=== PATIENT | female | born 1980 | race Hispanic/Latino ===

== ENCOUNTER 2019-06-11 18:36 | Emergency (ER) | payer OTHER, SELFPAY ==
[2019-06-11 18:46] VITALS: BP 108/71; PULSE 73; RESP 16; TEMP 36.4; O2SAT 100
--- NOTE | 2019-06-11 19:25 | ED.SKABFB ---
HPI - Skin/Abscess/Foreign Bdy General Chief complaint: Skin/Abscess/Foreign Body Stated complaint: Redness on Cheeks Time Seen by Provider: 06/11/19 19:05 Source: patient, family and RN notes reviewed Mode of arrival: ambulatory Limitations: no limitations and other (patient speaks tristanian but family here to translate) History of Present Illness HPI narrative: 39 year old female accompanied by friend presents to express care with complaints of rash to bilateral cheek after she put her head into the oven to remove a cake on Friday. Patient has blotchy looking skin to bilateral lateral cheeks, denies any pain states some itch to skin, no blister formation or acute redness noted. Patient denies any fevers chills or sweats, denies any fluid or weeping from skin on cheeks, has applied some neosporin ointment to skin. MD complaint: other (superficial burn to cheeks) Onset (ago): day(s) (on Friday) Tetanus up to date: unsure Location: face Severity: mild Severity scale (1-10): 1 (no acute pain states itchy) Quality: other (itchy) Pain Consistency: other (itchy) Relieving factors: none Exacerbating factors: none Context: none Associated symptoms: denies other symptoms Treatments prior to arrival: other (neosporin) Related Data Home Medications Medication Instructions Recorded Confirmed ergocalciferol (vitamin D2) 06/11/19 Allergies Allergy/AdvReac Type Severity Reaction Status Date / Time No Known Allergies Allergy Unverified 08/15/18 10:58 Review of Systems Review of Systems: Narrative: CONSTITUTIONAL: Denies fever, chills, or sweats. EYES: Denies visual changes, redness, or discharge. ENT: Denies rhinorrhea, congestion, sore throat, or otalgia. CARDIOVASCULAR: Denies chest pain, palpitations, or edema. RESPIRATORY: Denies cough or dyspnea. GASTROINTESTINAL: Denies abdominal pain, nausea, vomiting, or diarrhea. GENITOURINARY: Denies dysuria or hematuria. SKIN:blotchy colored rash to bilateral cheeks with itching MUSCULOSKELETAL: Denies back pain, joint pain, or myalgia. NEUROLOGIC: Denies headache, numbness, or weakness. PSYCHIATRIC: Denies anxiety or depression. All systems reviewed & are unremarkable except as noted in HPI and below PMFSH Surgical History Surgical History (Updated 06/11/19 @ 19:48 by Deborah De La Garza NP) Previous section Social History Social History (Updated 06/11/19 @ 19:48 by Deborah De La Garza NP) Smoking status: Never smoker Alcohol intake: never Living arrangements: with family Gender identity (if verbalized by the patient): Female Comments At time of signature, agree with nursing past medical, social history. There is no relevant family history pertinent to the presenting complaint Exam Narrative: Exam Narrative: GENERAL: Well-appearing, well-nourished, and in no acute distress. HEAD: Normocephalic, atraumatic. EYES: PERRLA and EOMI. ENT: Nares clear, no rhinorrhea or epistaxis. Mucous membranes moist. NECK: Supple. no lymphadenopathy CHEST: Clear to auscultation. No respiratory distress. HEART: Regular rate and rhythm. No murmur heard. Normal peripheral pulses. ABDOMEN: Soft, nontender, nondistended, normal active bowel sounds. EXTREMITIES: Normal range of motion. No edema. SKIN: Warm, dry, blotchy skin to bilateral lateral cheeks, no blisters, weeping, or acute pain to area, states itchy NEURO: No focal deficits. Alert and oriented x3. Course Vital Signs Vital signs: Vital Signs Temperature 36.4 C L 06/11/19 18:46 Pulse Rate 73 06/11/19 18:46 Respiratory Rate 16 06/11/19 18:46 Blood Pressure 108/71 06/11/19 18:46 Pulse Oximetry 100 06/11/19 18:46 Temperature 36.4 C L 06/11/19 18:46 Pulse Rate 73 06/11/19 18:46 Respiratory Rate 16 06/11/19 18:46 Blood Pressure 108/71 06/11/19 18:46 Pulse Oximetry 100 06/11/19 18:46 MDM - Skin/Abscess/Foreign Bdy Differential Diagnosis Differential diagnosis: Likely viral exa
== END 2019-06-11 19:40 | disposition home or self-care (01) ==
PROVIDERS: Emergency Provider Registered Nurse; PCP Family Medicine
DX: T20.16XA Burn of first degree of forehead and cheek, initial encounter (principal); X19.XXXA Contact with other heat and hot substances, initial encounter
CPT/HCPCS: 99213; G0463

== ENCOUNTER 2019-08-12 15:10 | Emergency (ER) | payer OTHER, SELFPAY ==
--- NOTE | 2019-08-12 15:19 | ED_ITS ---
HPI - General Adult General Stated complaint: Lft side numbness face/arm/ palpitation Time Seen by Provider: 08/12/19 15:19 Source: patient and RN notes reviewed History of Present Illness HPI narrative: Patient is a 39-year-old female who arrived at 215pm at [facility], with the family member translating. Family member states that patient was having posterior neck pain, left-sided facial and arm numbness, and heart palpitations that started at work within the last couple hours. As translated from the family member, patient is aware that she will be transferred to the emergency room and proceeded to refuse treatment at the [facility]. Fa na member states they will just go directly to the emergency room at [facility]. Patient was urged several times to be seen at the facility and we would call an ambulance to take her to the hospital. Patient family member states they were just go there right now . Advised the family again if they were refusing to be seen, they need to go straight to [facility] in the hospital will be notified that the patient is coming. Patient is aware that she is refusing to be seen at our facility at this time. No obvious deficits noted. However, full assessment not completed. Patient left before registration was complete. Related Data Home Medications Medication Instructions Recorded Confirmed ergocalciferol (vitamin D2) 06/11/19 Allergies Allergy/AdvReac Type Severity Reaction Status Date / Time No Known Allergies Allergy Unverified 08/15/18 10:58 [facility] Surgical History Surgical History (Updated 06/11/19 @ 19:48 by Deborah De La Garza NP) Previous section Social History Social History (Updated 06/11/19 @ 19:48 by Deborah De La Garza NP) Smoking status: Never smoker Alcohol intake: never Gender identity (if verbalized by the patient): Female Medical Decision Making MDM Narrative Medical decision making narrative: [facility] ER, Keke RN, was notified of patient coming to the urgent care and refusing to be seen. ER is expecting the patient and is aware of the limited information we gathered during her time at the urgent care. Discharge Plan Discharge Clinical Impression: Numbness Patient Disposition: Left Without Being Seen Prescriptions: No Action ergocalciferol (vitamin D2) 1,250 mcg (50,000 unit) capsule RF: 0 bacitracin-polymyxin B 500-10,000 unit/gram ointment 1 applic TOPICAL BID Qty: 28.3 RF: 0 Follow-up/Referrals: UNKNOWN,DOCTOR [Primary Care Provider] - Time of Disposition: 15:21
== END 2019-08-12 15:19 | disposition left against medical advice (07) ==
DX: R20.0 Anesthesia of skin (principal)
CPT/HCPCS: 99199

== ENCOUNTER 2019-08-12 15:24 | Emergency (ER) | payer OTHER, SELFPAY ==
--- NOTE | ~2019-08-12 | CT_ITS ---
EXAMINATION: CT BRAIN W/O DATE: 08/12/2019 17:02 INDICATION: Headache. Tingling in the left upper extremity. TECHNIQUE: Computed tomography (CT) of the head was performed without intravenous contrast. The dose- length product was 529.67 mGy-cm. Automated exposure control and iterative reconstruction technique w ere employed. COMPARISON: No prior studies for comparison. FINDINGS: Normal brain parenchymal volume for age. Normal thacker-white differentiation. No acute intrac ranial hemorrhage, infarction, mass or mass effect. No ventriculomegaly or midline shift. Midline sagittal images demonstrate a normal corpus callosum, c raniovertebral junction and sella turcica. Basilar cisterns are patent. Paranasal sinuses and mastoids are pneumatized. No depressed skull fractures. IMPRESSION: 1. No acute intracranial abnormality. Reviewed, dictated and finalized at location [facility].
[2019-08-12 15:47] VITALS: BP 108/83; PULSE 85; RESP 16; TEMP 37.1; O2SAT 100
--- NOTE | 2019-08-12 16:33 | ECG_ITS ---
Measurements Intervals [place] Rate: 80 P: 58 DC: 154 QRS: 69 QRSD: 82 T: 54 QT: 368 QTc: 427 Interpretive Statements SINUS RHYTHM RSR' IN V1 OR V2, PROBABLY NORMAL VARIANT LOW QRS VOLTAGE IN PRECORDIAL LEADS BASELINE ARTIFACT- I, II, III, AVR, AVL, AVF, V3 BORDERLINE ECG Electronically Signed On 08-12-2019 16:52:03 CDT by Maxim Ash D.O.
[2019-08-12] MEDS: KETOROLAC 15 MG/ML VIAL (*BKC) IV PUSH (16:53)
[2019-08-12] MEDS: SODIUM CHLORIDE 0.9% IV 1,000 ML 999 ML IV CONT (16:53)
[2019-08-12] MEDS: METOCLOPRAMIDE HCL INJ 10 MG/2 ML VIAL IV PUSH (16:53)
[2019-08-12 16:57] LABS: Basophils Absolute Auto 0.1 K/mm3 (0.0-0.1); Basophils Percent Auto 0.6 % (0.2-1.2); Eosinophils Absolute Auto 0.2 K/mm3 (0-0.3); Eosinophils Percent Auto 1.9 % (0-4.4); Hematocrit 43.1 % (37.0-47.0); Hemoglobin 14.2 g/dL (12.0-15.0); Immature Granulocyte Absolute 0.02 K/mm3 (0.00-0.031); Immature Granulocyte Percent A 0.2 % (0-0.5); Lymphocytes Absolute Auto 1.61 K/mm3 (0.9-3.2); Lymphocytes Percent Auto 18.9 % (18.3-44.2); Mean Corpuscular HGB Conc 32.9 g/dl (32-36); Mean Corpuscular Hemoglobin 28.4 pg (26-34); Mean Corpuscular Volume 86.2 fl (80-100); Mean Platelet Volume 8.9 fl (7.4-10.4); Monocytes Absolute Auto 0.4 K/mm3 (0.1-0.6); Monocytes Percent Auto 5.1 % (2.6-8.5); Neutrophils Absolute Auto 6.2 K/mm3 (1.3-6.7); Neutrophils Percent Auto 73.3 % (45.5-73.1); Platelet Count Result 311 k/mm3 (150-375); Red Cell Distribution Width 12.1 % (11.5-14.5); White Blood Count 8.5 K/mm3 (4.5-10.0)
[2019-08-12 17:08] LABS: Blood Urea Nitrogen 6 mg/dL (7-17); Calcium 9.2 mg/dL (8.4-10.2); Carbon Dioxide 23 mmol/L (22-30); Chloride 105 mmol/L (98-107); Estimated CRCL calculation 91 ml/min; Estimated Glomerular Filt Rate > 60; Glucose 99 mg/dL (65-105); Potassium 3.6 mmol/L (3.4-5.0); Sodium 138 mmol/L (137-145)
[2019-08-12 17:20] LABS: Troponin I < 0.012 ng/mL (0.000-0.034)
[2019-08-12 17:25] LABS: Partial Thromboplastin Time 31.7 SECONDS (22.3-36.8)
--- NOTE | 2019-08-12 18:23 | ED.NEUROSD ---
HPI - Neuro Symptoms/Deficit General Chief Complaint: Neuro Symptoms/Deficit Stated Complaint: left sided, facial tingling, inc HR Time Seen by Provider: 08/12/19 16:10 Source: patient Mode of arrival: ambulatory Limitations: language barrier History of Present Illness HPI Narrative: This is a 39 year female that presents to the ER for headache since this afternoon. Reports left sided headache. Reports she also noted some tingling in her left arm before the headache started. Reports that has now resolved. Reports history of migraines. Also reports an itchy rash to the face that has been present for about 3 weeks. Denies fever, vision changes, vomiting, numbness or weakness. Related Data Allergies Allergy/AdvReac Type Severity Reaction Status Date / Time No Known Allergies Allergy Verified 08/12/19 15:26 Review of Systems Review of Systems: Narrative: CONSTITUTIONAL: Denies fever CARDIOVASCULAR: Denies chest pain RESPIRATORY: Denies dyspnea. GASTROINTESTINAL: Denies vomiting SKIN: Reports rash and itching. NEUROLOGIC: Reports headache. Denies numbness, or weakness. All systems reviewed & are unremarkable except as noted in HPI and below PMFSH Surgical History Surgical History (Updated 06/11/19 @ 19:48 by Deborah De La Garza NP) Previous section Social History Social History (Updated 06/11/19 @ 19:48 by Deborah De La Garza NP) Smoking status: Never smoker Alcohol intake: never Gender identity (if verbalized by the patient): Female Exam Narrative: Exam Narrative: GENERAL: Well-appearing, well-nourished, and in no acute distress. HEAD: Normocephalic, atraumatic. EYES: PERRLA and EOMI. ENT: Nares clear, no rhinorrhea or epistaxis. Mucous membranes moist. Oropharynx without tonsillar hypertrophy exudate or other lesions. Bilateral TMs pearly thacker non-bulging NECK: Supple. No adenopathy or masses. Normal ROM CHEST: Clear to auscultation. No respiratory distress. No wheezes rales or rhonchi HEART: Regular rate and rhythm. No murmur heard. Normal peripheral pulses. EXTREMITIES: Normal range of motion. No edema. Strength equal bilateral upper and lower extremities SKIN: Warm, dry. Hyperpigmented rash present over the cheeks and neck NEURO: No focal deficits. Alert and oriented x3. Cranial nerves II through XII grossly intact. Normal [id number] PSYCH: Normal mood and affect Course Vital Signs Vital signs: Vital Signs Temperature 98.7 F 08/12/19 15:47 Pulse Rate 85 08/12/19 15:47 Respiratory Rate 16 08/12/19 15:47 Blood Pressure 108/83 08/12/19 15:47 Pulse Oximetry 100 08/12/19 15:47 Temperature 98.7 F 08/12/19 15:47 Pulse Rate 85 08/12/19 15:47 Respiratory Rate 16 08/12/19 15:47 Blood Pressure 108/83 08/12/19 15:47 Pulse Oximetry 100 08/12/19 15:47 MDM - Neuro Symptoms/Deficit MDM Narrative Medical decision making narrative: Patient presents the emergency department for headache since this afternoon. She is afebrile and nontoxic-appearing. Patient is neurologically intact. She does report history of migraines. CBC and metabolic panel without acute changes. CT brain is without acute findings. Patient reports relief with migraine cocktail. Patient also reports a facial rash that is been present for 3 weeks. Patient was instructed to follow-up with dermatology for this. She is to follow up with her PCP as well. Patient and family were given warnings to return to the ER Lab Data Attestation: I reviewed the patient's lab results. Result diagrams: 08/12/19 16:49 08/12/19 16:49 Labs: Lab Results 08/12/19 08/12/19 08/12/19 Range/Units 16:49 16:49 16:49 WBC 8.5 (4.5-10.0) K/mm3 RBC 5.00 (4.2-5.4) M/mm3 Hgb 14.2 (12.0-15.0) g/dL Hct 43.1 (37.0-47.0) % MCV 86.2 (80-100) fl MCH 28.4 (26-34) pg MCHC 32.9 (32-36) g/dl RDW 12.1 (11.5-14.5) % Plt Count 311 (150-375) k/mm3 MPV 8.9
[2019-08-12 18:46] VITALS: BP 99/68; PULSE 79; RESP 18; O2SAT 99
== END 2019-08-12 18:49 | disposition home or self-care (01) ==
PROVIDERS: Physician Assistant; Emergency Provider Emergency Medicine
DX: G43.109 Migraine with aura, not intractable, without status migrainosus (principal); R21 Rash and other nonspecific skin eruption; R94.31 Abnormal electrocardiogram [ECG] [EKG]
CPT/HCPCS: 36415; 70450; 80048; 84484; 85025; 85610; 85730; 93005; 96365; 96375; 99284; J0131; J1200; J1885; J2765; J7030

== ENCOUNTER 2021-04-18 09:33 | Emergency (ER) | payer OTHER, SELFPAY ==
[2021-04-18 09:45] VITALS: BP 98/60; PULSE 86; RESP 16; TEMP 36.6; O2SAT 99
--- NOTE | 2021-04-18 11:21 | ED.URI ---
HPI - URI/Sore Throat General Chief Complaint: Upper Respiratory Infection Stated Complaint: cough/cp Time Seen by Provider: 04/18/21 10:47 Source: patient and RN notes reviewed Mode of arrival: ambulatory Limitations: no limitations History of Present Illness HPI Narrative: Patient presents today complaining of a 2-day history of dry cough, congestion, ear pain, chest wall pain with cough. Denies fever or any additional symptoms. She has been taking Tylenol with mild relief. She has been vaccinated against influenza and COVID-19. She is a non-smoker. MD elicited complaint: cough and nasal congestion Related Data Home Medications Medication Instructions Recorded Confirmed desonide applic TOPICAL 04/18/21 famotidine 04/18/21 Allergies Allergy/AdvReac Type Severity Reaction Status Date / Time No Known Allergies Allergy Verified 04/18/21 10:13 Review of Systems Review of Systems: CONSTITUTIONAL: Denies body aches, fever, chills, or sweats. EYES: Denies visual changes, redness, or discharge. ENT: Denies rhinorrhea, sore throat, or otalgia.+ Congestion CARDIOVASCULAR: Denies chest pain, palpitations, or edema. RESPIRATORY: Denies dyspnea.+ Cough, chest wall pain GASTROINTESTINAL: Denies abdominal pain, nausea, vomiting, or diarrhea. GENITOURINARY: Denies dysuria or hematuria. SKIN: Denies rash, itching, or wounds. MUSCULOSKELETAL: Denies back pain, joint pain, or myalgia. NEUROLOGIC: Denies headache, numbness, tingling, or weakness. PSYCH: Denies depression or anxiety. PMFSH Surgical History Surgical History Previous section Social History Social History Smoking status: Never smoker Alcohol intake: never Gender identity (if verbalized by the patient): Female Comments At time of signature, I have reviewed and agree with nursing past medical, surgical, social and family history unless otherwise noted. Please see nursing chart for further information. There is no relevant family history pertinent to the presenting complaint Exam Narrative: GENERAL: Mildly ill-appearing, well-nourished, and in no acute distress. HEAD: Normocephalic, atraumatic. EYES: EOMI. No redness or drainage. Conjunctivae normal. ENT: Mucous membranes pink and moist. Nares clear. No rhinorrhea. TMs normal bilaterally. Throat normal. Uvula midline. NECK: Normal AROM. Supple. No lymphadenopathy. CHEST: No respiratory distress. Clear to auscultation. Dry cough noted. HEART: Regular rate and rhythm. No murmur appreciated. Normal peripheral pulses. EXTREMITIES: Normal range of motion. No edema. SKIN: Warm, dry, no rash. Capillary refill normal. Normal skin turgor. NEURO: No focal deficits. Alert and oriented x3. Gait steady. PSYCH: Normal affect. No signs of depression or anxiety. Course Vital Signs Vital signs: Vital Signs Temperature 97.8 F 04/18/21 09:45 Pulse Rate 86 04/18/21 09:45 Respiratory Rate 16 04/18/21 09:45 Blood Pressure 98/60 L 04/18/21 09:45 Pulse Oximetry 99 04/18/21 09:45 Temperature 97.8 F 04/18/21 09:45 Pulse Rate 86 04/18/21 09:45 Respiratory Rate 16 04/18/21 09:45 Blood Pressure 98/60 L 04/18/21 09:45 Pulse Oximetry 99 04/18/21 09:45 Reviewed MDM - URI/Sore Throat Differential Diagnosis Differential diagnosis: Likely upper respiratory infection, otitis media, viral infection, bronchitis and other (COVID-19) Lab Data Attestation: I reviewed the patient's lab results. Lab results narrative: Rapid COVID-19 test negative Critical Care Time Critical Care Time Critical Care Time: No Discharge Plan Discharge Clinical Impression: Upper respiratory infection Patient Disposition: Home, Self-Care Condition: Stable Instructions: Upper Respiratory Infection (DC) Additional Instructions: Tu prueba de COVID-19 es negativ
== END 2021-04-18 11:35 | disposition home or self-care (01) ==
PROVIDERS: Emergency Provider Nurse Practitioner; PCP Physician Assistant
DX: J06.9 Acute upper respiratory infection, unspecified (principal); Z20.822 Contact with and (suspected) exposure to COVID-19
CPT/HCPCS: 87426; 99213; C9803; G0463

== ENCOUNTER 2021-05-01 15:58 | Emergency (ER) | payer OTHER, SELFPAY ==
--- NOTE | ~2021-05-01 | CT_ITS ---
EXAMINATION: CT abdomen pelvis wo con DATE: 05/01/2021 23:50 INDICATION: Epigastric abdominal pain, diarrhea for 4 days TECHNIQUE: Computed tomography (CT) of the abdomen and pelvis was performed without intravenous contr ast. Automated exposure control and iterative reconstruction technique were employed. Exam dose: 190 .72 mGy-cm total exam DLP. COMPARISON: None. FINDINGS: The lung bases are clear. Normal heart size. No pericardial or pleural effusion. There are multiple faceted gallstones measuring up to approximately 1.5 cm. No gallbladder wall thick ening or pericholecystic fluid or fat stranding or bile duct or pancreatic duct dilatation is detecte d. No hepatic, splenic, pancreatic, adrenal or renal space-occupying mass lesion is evident on this limi jennifer noncontrast examination. No urinary tract calculus or hydroureteronephrosis. The uterus, urinary bladder and adnexal areas are unremarkable. Normal caliber of the abdominal aorta. No intraperitoneal or retroperitoneal or pelvic mass lesion or adenopathy or ascites. No evidence of appendicitis. No bowel obstruction or intraperitoneal free air is detected. There are some fluid levels within the nondilated small bowel and right colon, consistent with histor y of diarrhea. Small fat-containing umbilical hernia. IMPRESSION: Cholelithiasis Scattered small bowel and right colon air-fluid levels suggesting enterocolitis; no bowel obstruction Reviewed, dictated and finalized at [facility]. Reviewed, dictated and finalized at location A. ER OPERATOR IMPRESSION: Cholelithiasis Scattered small bowel and right colon air-fluid levels suggesting enterocolitis ; no bowel obstruction
[2021-05-01 16:22] VITALS: BP 93/60; PULSE 76; RESP 18; O2SAT 99
[2021-05-01 21:24] VITALS: BP 115/75; PULSE 74; RESP 14; O2SAT 100
--- NOTE | 2021-05-01 23:20 | ED.ABDPAIN ---
HPI - Abdominal Pain General Chief Complaint: Nausea/Vomiting/Diarrhea Stated Complaint: body aches, N/V Time Seen by Provider: 05/01/21 23:14 Source: patient Mode of arrival: ambulatory Limitations: no limitations History of Present Illness HPI narrative: Patient is a 41-year-old female complaining of abdominal pain, epigastric, 7 out of 10, radiating to lower abdomen all the way down to her bilateral lower extremities, accompanied by body aches, nausea, vomiting and diarrhea x1 week. Patient states that she was seen at [facility] for the same complaints, had labs and a CT scan of her abdomen pelvis, was told that she had gastritis. Related Data Home Medications Medication Instructions Recorded Confirmed desonide applic TOPICAL 04/18/21 famotidine 04/18/21 Allergies Allergy/AdvReac Type Severity Reaction Status Date / Time No Known Allergies Allergy Verified 04/18/21 10:13 Review of Systems Review of Systems: All systems reviewed & are unremarkable except as noted in HPI and below Constitutional: Constitutional: Denies chills, Denies excessive sweating, Denies fatigue, Denies fever(s), Denies headache(s), Denies lethargy, Denies malaise, Denies weakness and Denies weight loss Eyes: Eyes: Denies blurry vision, Denies change in vision and Denies loss of vision ENT: Denies dizziness, Denies ear discharge, Denies headache(s), Denies lip swelling, Denies epistaxis, Denies nasal congestion, Denies neck pain, Denies throat swelling and Denies tongue swelling Cardiovascular: Cardiovascular: Denies chest pain, Denies chest pain at rest, Denies chest pain with activity, Denies diaphoresis, Denies rapid heart rate, Denies edema, Denies irregular heart rhythm, Denies lightheadedness, Denies palpitations, Denies dyspnea and Denies dyspnea on exertion Respiratory: Respiratory: Denies chest congestion, Denies cough, Denies hemoptysis, Denies dyspnea and Denies dyspnea on exertion Gastrointestinal: Gastrointestinal: Denies melena, Denies hematochezia and Denies hematemesis Musculoskeletal: Musculoskeletal: Denies abnormal gait, Denies deformity, Denies joint swelling, Denies limited range of motion, Denies neck pain and Denies numbness Neurologic: Denies Abnormal speech present, Denies abnormal gait, Denies confusion, Denies dizziness, Denies headache(s), Denies focal weakness, Denies loss of vision, Denies numbness, Denies Other visual disturbances, Denies Sensory deficit (Neuro) and Denies weakness Psychiatric: Psychiatric: Denies confusion, Denies depression, Denies auditory hallucinations, Denies homicidal ideation and Denies suicidal ideation Endocrine: Endocrine: Denies cold intolerance, Denies excessive sweating, Denies fatigue, Denies heat intolerance and Denies palpitations Hematologic/Lymphatic: Hematologic/Lymphatic: Denies easy bleeding and Denies easy bruising Allergic/Immunologic: Allergic/Immunologic: Denies lip swelling, Denies throat swelling and Denies tongue swelling PMFSH Surgical History Surgical History Previous section Social History Social History Smoking status: Never smoker Alcohol intake: never Gender identity (if verbalized by the patient): Female Comments Past medical history: None Family history: None Social history: Non-smoker no EtOH or drug use Exam Const: General: cooperative, healthy appearing, comfortable, no acute distress, well developed, alert and awake; No confusion Orientation/consciousness: oriented to person, oriented to place, oriented to time, patient oriented x3 and No confusion Limitations: no limitations HENMT: Head: normal to inspection, normocephalic and atraumatic Ears: hearing grossly normal bilaterally, TM normal on the right and TM normal on the left General nose exam: Normal external nose present, Normal nares present and N
[2021-05-01 23:26] VITALS: TEMP 36.7
[2021-05-01] MEDS: PROMETHAZINE HCL 25 MG/ML AMPUL 12.5 MG IV PUSH (23:59)
[2021-05-01] MEDS: SODIUM CHLORIDE 0.9% IV 1,000 ML 999 ML IV CONT (23:59)
[2021-05-02 00:04] VITALS: BP 99/61; PULSE 58; RESP 18; O2SAT 100
[2021-05-02 00:20] LABS: Basophils Percent Auto 0.3 % (0.2-1.2); Eosinophils Absolute Auto 0.2 K/mm3 (0-0.3); Eosinophils Percent Auto 3.7 % (0-4.4); Hematocrit 39.7 % (37.0-47.0); Immature Granulocyte Absolute 0.01 K/mm3 (0.00-0.031); Immature Granulocyte Percent A 0.2 % (0-0.5); Lymphocytes Percent Auto 26.6 % (18.3-44.2); Mean Corpuscular HGB Conc 32.7 g/dl (32-36); Mean Corpuscular Volume 91.7 fl (80-100); Mean Platelet Volume 8.8 fl (7.4-10.4); Monocytes Absolute Auto 0.4 K/mm3 (0.1-0.6); Neutrophils Absolute Auto 3.8 K/mm3 (1.3-6.7); Neutrophils Percent Auto 62.2 % (45.5-73.1); Platelet Count Result 293 k/mm3 (150-375); Red Blood Count 4.33 M/mm3 (4.2-5.4); Red Cell Distribution Width 11.7 % (11.5-14.5)
[2021-05-02 00:25] LABS: Alanine Aminotransferase 27 U/L (4-35); Albumin Level 4.5 g/dL (3.5-5.1); Alkaline Phosphatase 80 U/L (38-126); Anion Gap 10 mmol/L (8-16); Aspartate Amino Transferase 21 U/L (14-36); Bilirubin,Total 0.6 mg/dL (0.2-1.3); Blood Urea Nitrogen 6 mg/dL (7-17); Calcium 9.2 mg/dL (8.4-10.2); Carbon Dioxide 24 mmol/L (22-30); Chloride 104 mmol/L (98-107); Estimated CRCL calculation 89 ml/min; Estimated Glomerular Filt Rate > 60; Glucose 99 mg/dL (65-110); Lipase 64 U/L (23-300); Potassium 3.7 mmol/L (3.4-5.0); Sodium 138 mmol/L (137-145)
[2021-05-02 00:26] LABS: Lactic Acid Reflex 0.5 mmol/L (0.7-2.1)
[2021-05-02 01:09] VITALS: BP 97/73; PULSE 59; RESP 16; O2SAT 100
[2021-05-02 01:43] VITALS: BP 97/69; PULSE 63; RESP 16; O2SAT 99
== END 2021-05-02 01:44 | disposition home or self-care (01) ==
PROVIDERS: Emergency Provider Emergency Medicine; PCP Physician Assistant
DX: K52.9 Noninfective gastroenteritis and colitis, unspecified (principal); B34.9 Viral infection, unspecified
CPT/HCPCS: 36415; 74176; 80053; 83605; 83690; 85025; 96361; 96374; 99284; J2550; J7030

== ENCOUNTER 2021-09-07 19:52 | Emergency (ER) | payer OTHER, SELFPAY ==
[2021-09-07 20:01] VITALS: BP 99/71; PULSE 73; RESP 16; TEMP 36.9; O2SAT 100
--- NOTE | 2021-09-07 20:06 | ED.URI ---
HPI - URI/Sore Throat General Chief Complaint: Upper Respiratory Infection Stated Complaint: sore throat/pyle Time Seen by Provider: 09/07/21 20:06 Source: patient, family, RN notes reviewed and old records reviewed Mode of arrival: ambulatory Limitations: no limitations History of Present Illness HPI Narrative: 41-year-old female presents to the [facility] with complaints of sore throat, headache, body aches and fever since Friday. Has tried lkgh-imh-jgxdeix products without relief. Patient looks acutely ill. Reports fevers and taking OTC meds. Related Data Allergies Allergy/AdvReac Type Severity Reaction Status Date / Time No Known Allergies Allergy Verified 04/18/21 10:13 Review of Systems Review of Systems: All systems reviewed & are unremarkable except as noted in HPI and below Constitutional: Constitutional: Reports as per HPI, Reports chills, Reports fever(s) and Denies headache(s) Eyes: Eyes: Reports no additional eye complaints ENT: Reports as per HPI, Denies vertigo, Denies dizziness, Denies headache(s), Denies nasal congestion and Reports sore throat Cardiovascular: Cardiovascular: Reports no additional cardiovascular complaints, Denies chest pain, Denies syncope, Denies rapid heart rate and Denies dyspnea Respiratory: Respiratory: Reports no additional respiratory complaints, Denies cough, Denies dyspnea and Denies wheezing Gastrointestinal: Gastrointestinal: Reports no additional gastrointestinal complaints, Denies abdominal pain, Reports diarrhea (today), Denies nausea and Denies vomiting Musculoskeletal: Musculoskeletal: Reports no additional musculoskeletal complaints and Denies numbness Integumentary/Breasts: Skin/Breast: Reports system reviewed and no additional complaints, except as docu Neurologic: Reports system reviewed and no additional complaints, except as documented, Denies vertigo, Denies dizziness, Denies syncope, Denies headache(s), Denies focal weakness and Denies numbness Psychiatric: Psychiatric: Reports no additional psychiatric complaints Allergic/Immunologic: Allergic/Immunologic: Reports no additional allergic/immunologic complaints and Denies wheezing PMFSH Past Medical History Medical History (Updated 09/07/21 @ 20:36 by Tsering Taveras APRN) No significant medical problems Surgical History Surgical History Previous section Social History Social History (Reviewed 09/07/21 @ 20:34 by TONIE Paulino Smoking status: Never smoker Alcohol intake: never Gender identity (if verbalized by the patient): Female Comments At the time of my signature, I reviewed and agree with the nursing past medical, surgical, social, and family history. There is no relevant family history pertinent to the patient complaint. Exam Const: General: cooperative, no acute distress, well developed, alert and ill appearing acutely Nutritional Appearance: well nourished Orientation/consciousness: patient oriented x3 Limitations: no limitations HENMT: Head: normal to inspection Ears: external ears normal, TM's normal bilaterally and EAC's normal Mouth: Yes moist mucous membranes Throat: uvula midline, posterior oropharynx abnormal erythema, postnasal drainage and tonsils absent Eyes: Conjunctivae: conjunctivae normal Pupils: Equal, round and reactive pupils present Neck: Neck: normal visual inspection, no lymphadenopathy and no meningeal signs Chest: Chest palpation & inspection: normal inspection of the chest Resp: Effort & Inspection: normal respiratory effort and no use of accessory muscles Auscultation: clear to auscultation bilaterally, no crackles, no rales, no rhonchi and no wheezes Cardio: Rate: regular rate Rhythm: regular rhythm Back/Spine/Pelvis: Back: no CVA tenderness Skin: General skin exam: normal color Rashes: no rashes Wounds: no wounds Neuro: General: patient oriented x3, moves all extremiti
== END 2021-09-07 20:40 | disposition home or self-care (01) ==
PROVIDERS: Emergency Provider Nurse Practitioner
DX: J02.0 Streptococcal pharyngitis (principal)
CPT/HCPCS: 87804; 87880; 99213; G0463

== ENCOUNTER 2022-07-01 11:18 | Emergency (ER) | payer OTHER, SELFPAY ==
[2022-07-01 11:32] VITALS: BP 101/65; PULSE 84; RESP 14; TEMP 36.6; O2SAT 100
--- NOTE | 2022-07-01 11:54 | ED.GENADULT ---
HPI - General Adult General Chief complaint: Abdominal Pain Stated complaint: Abdominal Pain/Back Time Seen by Provider: 07/01/22 11:55 Source: patient, RN notes reviewed and old records reviewed Mode of arrival: ambulatory Limitations: no limitations History of Present Illness HPI narrative: 42-year-old female presents to the [facility] with complaints of abdominal pain and back pain that started about 1 week ago Call PCM was told to take tylenol. Last bowel movement was about a week ago. No treatment for constipation Patient extremely tender and nauseous. 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 wanting to use friend at bedside Onset (ago): week(s) (1) Related Data Home Medications Medication Instructions Recorded Confirmed mycophenolate mofetil 500 mg tablet 500 mg PO BID 07/01/22 07/01/22 Allergies Allergy/AdvReac Type Severity Reaction Status Date / Time No Known Allergies Allergy Verified 07/01/22 11:26 Review of Systems Review of Systems: All systems reviewed & are unremarkable except as noted in HPI and below Constitutional: Constitutional: Reports no additional constitutional complaints Eyes: Eyes: Reports no additional eye complaints ENT: Reports system reviewed and no additional complaints, except as documented Cardiovascular: Cardiovascular: Reports no additional cardiovascular complaints, Denies chest pain and Denies dyspnea Respiratory: Respiratory: Reports no additional respiratory complaints, Denies chest congestion, Denies cough and Denies dyspnea Gastrointestinal: Gastrointestinal: Reports as per HPI, Reports abdominal pain, Reports constipation, Reports nausea and Denies vomiting Genitourinary: Genitourinary: Reports no additional female genitourinary complaints Musculoskeletal: Musculoskeletal: Reports no additional musculoskeletal complaints Integumentary/Breasts: Skin/Breast: Reports system reviewed and no additional complaints, except as docu Neurologic: Reports system reviewed and no additional complaints, except as documented Psychiatric: Psychiatric: Reports no additional psychiatric complaints Allergic/Immunologic: Allergic/Immunologic: Reports no additional allergic/immunologic complaints PMF Past Medical History Medical History No significant medical problems Surgical History Surgical History Previous section Social History Social History Smoking status: Never smoker Alcohol intake: never Living arrangements: with family Gender identity (if verbalized by the patient): Female Comments At the time of my signature, I reviewed and agree with the nursing past medical, surgical, social, and family history. There is no relevant family history pertinent to the patient complaint. Exam Const: General: cooperative, healthy appearing, well developed, alert, uncomfortable and well nourished Nutritional Appearance: well nourished Orientation/consciousness: patient oriented x3 Limitations: no limitations HENMT: Head: normal to inspection Ears: hearing grossly normal bilaterally and external ears normal Face/Nose/Sinus: Normal external nose present, Normal nares present, Normal nasal mucous membranes and turbinates present and normal facial exam Face and sinus: normal facial exam Mouth: Yes Normal oral and palatal mucosa present, Yes lip normal and Yes moist mucous membranes Throat: posterior oropharynx normal and uvula midline Eyes: General: appearance normal, both eyes and all related structures Alignment and Position: alignment normal Periorbital: periorbital findings normal Conjunctivae: conjunctivae normal Pupils: Equal, round and reactive pupils present EOM: EOMs intact bilaterally Neck: Neck: normal visual inspection, full ROM, no lymphadenopathy and no meningeal
== END 2022-07-01 12:20 | disposition home or self-care (01) ==
PROVIDERS: Emergency Provider Nurse Practitioner; PCP Physician Assistant
DX: R10.33 Periumbilical pain (principal); R10.12 Left upper quadrant pain; R10.32 Left lower quadrant pain; R10.13 Epigastric pain
CPT/HCPCS: 81003; 99212; G0463

== ENCOUNTER 2022-07-01 12:41 | Emergency (ER) | payer OTHER, SELFPAY ==
[2022-07-01 12:56] VITALS: BP 109/59; PULSE 78; RESP 16; TEMP 36.4; O2SAT 100
[2022-07-01 14:29] LABS: Basophils Absolute Auto 0.1 K/mm3 (0.0-0.1); Basophils Percent Auto 0.9 % (0.2-1.2); Eosinophils Absolute Auto 0.3 K/mm3 (0-0.3); Eosinophils Percent Auto 4.2 % (0-4.4); Hematocrit 39.3 % (37.0-47.0); Immature Granulocyte Absolute 0.02 K/mm3 (0.00-0.031); Immature Granulocyte Percent A 0.3 % (0-0.5); Lymphocytes Absolute Auto 2.29 K/mm3 (0.9-3.2); Lymphocytes Percent Auto 34.4 % (18.3-44.2); Mean Corpuscular HGB Conc 33.1 g/dl (32-36); Mean Corpuscular Hemoglobin 29.5 pg (26-34); Mean Corpuscular Volume 89.1 fl (80-100); Mean Platelet Volume 8.6 fl (7.4-10.4); Monocytes Absolute Auto 0.5 K/mm3 (0.1-0.6); Monocytes Percent Auto 6.9 % (2.6-8.5); Neutrophils Absolute Auto 3.6 K/mm3 (1.3-6.7); Neutrophils Percent Auto 53.3 % (45.5-73.1); Platelet Count Result 325 k/mm3 (150-375); Red Blood Count 4.41 M/mm3 (4.2-5.4); Red Cell Distribution Width 11.9 % (11.5-14.5); White Blood Count 6.7 K/mm3 (4.5-10.0)
[2022-07-01 14:42] LABS: Alanine Aminotransferase 17 U/L (6-35); Albumin Level 4.7 g/dL (3.5-5.1); Alkaline Phosphatase 72 U/L (38-126); Anion Gap 9 mmol/L (8-16); Aspartate Amino Transferase 21 U/L (14-36); Bilirubin,Total 0.5 mg/dL (0.2-1.3); Blood Urea Nitrogen 13 mg/dL (7-17); Calcium 8.9 mg/dL (8.4-10.2); Carbon Dioxide 24 mmol/L (22-30); Chloride 102 mmol/L (98-107); Estimated CRCL calculation 82 ml/min; Estimated Glomerular Filt Rate > 60; Glucose 91 mg/dL (65-110); Lipase 79 U/L (23-300); Potassium 4.1 mmol/L (3.4-5.0); Sodium 135 mmol/L (137-145)
[2022-07-01 17:33] LABS: Appearance Urine Clear (Clear); Bilirubin Urine Negative (Negative); Blood Urine Negative (Negative); Color Urine Yellow (Yellow); Glucose Urine UA Negative (Negative); Ketones Urine Negative (Negative); Leukocyte Esterase Ur Negative LEU/UL (Negative); Nitrate Urine Negative (Negative); Protein Urine Negative (Negative); Specific Grav Ur 1.009 (1.001-1.035); Urobilinogen Urine 0.2 mg/dL (<2.0); pH Urine 6.5 (5.0-9.0)
[2022-07-01 17:46] LABS: Add Urine Microscopic? NO
--- NOTE | 2022-07-01 19:37 | PC.NURSE ---
Patient's name called twice in waiting room. No answer.
== END 2022-07-01 19:47 | disposition left against medical advice (07) ==
PROVIDERS: Emergency Provider Emergency Medicine; PCP Physician Assistant
DX: R10.9 Unspecified abdominal pain (principal)
CPT/HCPCS: 36415; 80053; 81003; 83690; 85025; 99199

== ENCOUNTER 2022-12-31 11:59 | Emergency (ER) | payer OTHER, SELFPAY ==
[2022-12-31 12:11] VITALS: BP 97/63; PULSE 91; RESP 16; TEMP 36.7; O2SAT 99
--- NOTE | 2022-12-31 12:11 | ED.URI ---
HPI - URI/Sore Throat General Chief Complaint: Upper Respiratory Infection Stated Complaint: sore throat, ear pain Time Seen by Provider: 12/31/22 12:11 Source: patient, RN notes reviewed and old records reviewed Mode of arrival: ambulatory Limitations: no limitations History of Present Illness HPI Narrative: 42-year-old female presents to the [facility] with generalized body aches, sore throat and ear pain that started 2 days ago. Has taken Tylenol and ufpd-qgh-zmianhm cold medicine. No other treatment prior to arrival. Denies chest pain, abdominal pain. Denies fevers. No shortness of breath. Onset (ago): day(s) (2) Related Data Home Medications Medication Instructions Recorded Confirmed mycophenolate mofetil 500 mg tablet 500 mg PO BID 07/01/22 12/31/22 Allergies Allergy/AdvReac Type Severity Reaction Status Date / Time No Known Allergies Allergy Verified 12/31/22 12:13 Review of Systems Review of Systems: All systems reviewed & are unremarkable except as noted in HPI and below Constitutional: Constitutional: Reports no additional constitutional complaints Eyes: Eyes: Reports no additional eye complaints ENT: Reports as per HPI, Reports otalgia and Reports sore throat Cardiovascular: Cardiovascular: Reports no additional cardiovascular complaints, Denies chest pain and Denies dyspnea Respiratory: Respiratory: Reports no additional respiratory complaints, Denies chest congestion, Denies cough and Denies dyspnea Gastrointestinal: Gastrointestinal: Reports no additional gastrointestinal complaints, Denies abdominal pain, Denies nausea and Denies vomiting Musculoskeletal: Musculoskeletal: Reports no additional musculoskeletal complaints Integumentary/Breasts: Skin/Breast: Reports system reviewed and no additional complaints, except as docu Neurologic: Reports system reviewed and no additional complaints, except as documented Psychiatric: Psychiatric: Reports no additional psychiatric complaints Allergic/Immunologic: Allergic/Immunologic: Reports no additional allergic/immunologic complaints [facility] Past Medical History Medical History No significant medical problems Surgical History Surgical History Previous section Social History Social History Smoking status: Never smoker Alcohol intake: never Living arrangements: with family Gender identity (if verbalized by the patient): Female Comments At the time of my signature, I reviewed and agree with the nursing past medical, surgical, social, and family history. There is no relevant family history pertinent to the patient complaint. Exam Const: General: cooperative, comfortable, no acute distress, well developed, alert, ill appearing acutely (Mild) and well nourished Nutritional Appearance: well nourished Orientation/consciousness: patient oriented x3 Limitations: no limitations HENMT: Head: normal to inspection Ears: hearing grossly normal bilaterally, external ears normal, TM's normal bilaterally and EAC's normal Face/Nose/Sinus: Normal external nose present, Normal nares present, Normal nasal mucous membranes and turbinates present and normal facial exam Face and sinus: normal facial exam Mouth: Yes Normal oral and palatal mucosa present, Yes lip normal and Yes moist mucous membranes Throat: posterior oropharynx normal, uvula midline and postnasal drainage Eyes: General: appearance normal, both eyes and all related structures Alignment and Position: alignment normal Periorbital: periorbital findings normal Pupils: Equal, round and reactive pupils present EOM: EOMs intact bilaterally Neck: Neck: normal visual inspection, full ROM, no lymphadenopathy and no meningeal signs Chest: Chest palpation & inspection: normal inspection of the chest Resp: Effort & Inspectio
[2022-12-31 12:13] VITALS: BP 97/63; PULSE 91; RESP 16; TEMP 36.7; O2SAT 99
== END 2022-12-31 12:56 | disposition home or self-care (01) ==
PROVIDERS: Emergency Provider Nurse Practitioner; PCP Physician Assistant
DX: U07.1 COVID-19 (principal)
CPT/HCPCS: 87081; 87426; 87880; 99213; C9803; G0463

== ENCOUNTER 2024-06-21 09:39 | Outpatient (CLI) | payer OTHER, SELFPAY ==
--- NOTE | ~2024-06-21 | XR_ITS ---
EXAMINATION: XR_[id number]_CR DATE: 06/21/2024 10:02 INDICATION: Right knee pain. Adult amyopathic dermatomyositis. TECHNIQUE: 2 views of right knee including standing views were obtained. COMPARISON: None. FINDINGS: Alignment is normal. No fracture. There is mild medial compartment osteoarthritis character ized by tiny osteophytes. No knee joint effusion. IMPRESSION: 1. Mild right knee osteoarthritis. Reviewed, dictated and finalized at location A. ER GRINDER
--- NOTE | ~2024-06-21 | XR_ITS ---
EXAMINATION: [id number]_[id number]_CR DATE: 06/21/2024 10:02 INDICATION: Left knee pain. Adult amyopathic dermatomyositis. TECHNIQUE: 2 views of left knee standing were obtained. COMPARISON: None. FINDINGS: Alignment is normal. No fracture. Joint spaces are normal. No knee joint effusion. IMPRESSION: 1. Normal left knee. Reviewed, dictated and finalized at location A. MOBILE TRAVEL CLUB COUNSELOR IMPRESSION: 1. Normal left knee.
--- OUTSIDE RECORDS SUMMARY | 2024-06-21 10:32 | XMS_ITS | Encounter Summary ---
Author Organization [facility] Address [address] [place] [address] Care Team Providers Care Computer Video Game Designer Name Role Phone Tasha Perez PA-C Primary Care Provider Encounter Details Date Type Department Care Team (Late st Contact Info) Description 09/07/2019 Lab Requisition [facility] [address] [place] [phone] Rosie Mary MD [address] [place] [address] [address] [place] [address] Social History Tobacco Use Types Packs/Day Years Used Date Smoking Tobacco: Never Assessed Sex and Gender Information Value Date Recorded Sex Assigned at Not on file Gender Identity Not on file Sexual Orientation Not on file documented as of this encounter Plan of Treatment Upcoming Encounters Date Type Department Care Team (Late Contact Info) Description 10/13/2024 2:40 PM CDT Office Visit [facility] - Rheumatology [address] [place] [address], [place] [address] Linda Pennington MD [address] [place] [address] [address] [place] [address] documented as of this encounter Procedures Procedure Name Priority Date/Time Associated Diagnosis Comments DERMATOPATHOLOGY Routine 09/06/2019 12:0 0 AM CDT documented in this encounter Results * DERMATOPATHOLOGY (09/06/2019 12:00 AM CDT) Case Report Dermatopathology Report Case: [id number] Authorizing Provider: Rosie Mary MD Collected: 09/06/2019 12:00 AM Ordering Location: [facility] Lab Received: 09/07/2019 06:47 AM Pathologist: Yessenia Hudson MD Specimen: Skin, left cheek 0 3:10 PM CDT DERMATOPATHOLOGY LABORATORY Final Diagnosis Specimen A. 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 CTD. 0 3:10 PM CDT DERMATOPATHOLOGY LABORATORY Gross Description Specimen A: Received is one formalin filled container labeled with the patient's name and designated left cheek. The specimen consists of a punch measuring [id number], bisected. Jar 0. 0 3:10 PM CDT DERMATOPATHOLOGY LABORATORY Microscopic Description Specimen A. SKIN, left cheek: There are scattered dyskeratotic keratinocytes and vacuolar alteration along the basal cell layer. A mild, perivascular lymphocytic infiltrate is observed in the superficial dermis. Sections show abundant melanin within melanophages around the superficial vascular plexus. PAS stain reveals a focally thickened basement membrane and colloidal iron stain demonstrates increased dermal mucin. Additional deeper sections were obtained and reviewed. COMMENT: These histologic findings are consistent with a connective tissue disease such as lupus erythematosus or dermatomyositis. Clinicopathologic correlation is recommended. 0 3:10 PM CDT DERMATOPATHOLOGY LABORATORY Disclaimer An external and internal positive and negative controls are appropriate for the histochemical, immunohistochemical and immunofluorescence stain(s) in this case (if any), except where stated explicitly. The performance characteristics of the stain(s) cited in this report were developed and its performance characteristic determined by the Dermatopathology Laboratory at [facility], directed by Dr. Elian Jo. These tests need not be, and therefore are not, approved by the [place] Food and Drug Administration. The tests are used for clinical purposes. Billing Codes Specimen Charges Stain Charges 29295 1 48643 07213 1 1 0 3:10 PM CDT DERMATOPATHOLOGY LABORATORY Embedded Images 0 3:10 PM CDT DERMATOPATHOLOGY LABORATORY Pathology/Cytolog y TISSUE SPECIMEN FROM SKIN / Unknown 09/06/2019 09/07/2019 6:47 AM CDT Rosie Mary MD LAB - PATHOLOGY/CYTO LOGY ORDERABLES DERMATOPATHOLOGY LABORATORY [facility] - Department of Dermatology [address] [place] [address], 5th Floor Lab [address] [phone] documented in this encounter Visit Diagnoses Not on filedocumented in this encounter Additional Health Concerns Infection Onset Date Last Indicated Resolved Time COVID-19 Under Investigation 12/18/2021 12/18/2021 12/18/2021 1:01 PM CDT documented as of this encounter Care Teams Computer Video Game Designer Relationship Specialty Start Date End Date Tasha Perez PA-C [facility] [place] [phone] PCP - General 10/08/19 documented as of this encounter
--- OUTSIDE RECORDS SUMMARY | 2024-06-21 10:32 | XMS_ITS | Encounter Summary ---
Author Organization [facility] Address [address] [facility] [place] [address] Care Team Providers Care Law Firm Partner Name Role Phone Tasha Perez PA-C Primary Care Provider Reason for Visit * Reason Onset Date Comments Requesting Labs 06/21/2024 Encounter Details Date Type Department Care Team (Late st Contact Info) Description 06/21/2024 Telephone [facility] - Rheumatology [address] [place] [address], [place] [address] Linda Pennington MD [address] [place] [address] [place] [address] Requesting Labs Social History Tobacco Use Types Packs/Day Years Used Date Smoking Tobacco: Never Smokeless Tobacco: Never Alcohol Use Standard Drinks/Week Comments Not Currently 0 (1 standard drink = 0.6 oz pur e alcohol) AUDIT-C Answer Date Recorded Q1: How often do you have a drink containing alc ohol? Never 12/18/2021 Average Number of Drinks Not on file 022 Frequency of Binge Drinking Not on file 11/27 PHQ-2 Answer Date Recorded Patient Health Questionnaire-2 Score 0 06/15/2024 Sex and Gender Information Value Date Recorded Sex Assigned at Not on file Gender Identity Not on file Sexual Orientation Not on file documented as of this encounter Miscellaneous Notes * Telephone Encounter - Cristel Miles - 06/21/2024 8:06 AM CST Current Provider: Maria Luisa Pennington Reason for Call: [facility] calling in regards to clarification for labs for pt for myositis antibody panel. Pt is currently at [facility] awaiting to get labs done Call Back Number: [phone] Tracee or Arturo will be able to asset RIFUGAL OPERATOR documented in this encounter Plan of Treatment Upcoming Encounters Date Type Department Care Team (Late st Contact Info) Description 10/13/2024 2:40 PM CDT Office Visit [facility] - Rheumatology [address] [place] [address], [place] [phone] Linda Pennington MD [address] [place] [address] [place] [phone] documented as of this encounter Visit Diagnoses Not on filedocumented in this encounter Care Teams Law Firm Partner Relationship Specialty Start Date End Date Tasha Perez PA-C [address] [place] [phone] PCP - General 10/08/19 documented as of this encounter
--- OUTSIDE RECORDS SUMMARY | 2024-06-21 10:32 | XMS_ITS | Encounter Summary ---
Author Organization [facility] Address [address] [facility] [place] [address] Care Team Providers Care Pattern Setter Name Role Phone Tasha Perez PA-C Primary Care Provider Reason for Visit * Reason Onset Date Comments Question 06/21/2024 Encounter Details Date Type Department Care Team (Late st Contact Info) Description 06/21/2024 Telephone [facility] - Rheumatology [address] [place] [address], [place] [address] Linda Pennington MD [address] [place] [address] [place] [address] Question Social History Tobacco Use Types Packs/Day Years [...] encounter Miscellaneous Notes * Telephone Encounter - Josh Ann LPN - 06/21/2024 8:18 AM CST Message received from Tracee at the lab. Patient is currently there waiting to have her labs completed. Tracee asked for clarification on whether the physician wanted the Myositis panel of 11 or the one that included the 11 plus 2 more, extended. Head Of Sales advised her to just draw the extended since thepatient was waiting. H LOADER AND HANDLE ATTACHER documented in this encounter Plan of Treatment Upcoming Encounters Date Type Department Care Team (Late st Contact Info) Description 10/13/2024 2:40 PM CDT Office Visit [facility] - Rheumatology [address] [place] [address], [place] [phone] Linda Pennington MD [address] [place] [address] [place] [phone] documented as of this encounter Visit Diagnoses Not on filedocumented in this encounter Care Teams Pattern Setter Relationship Specialty Start Date End Date Tasha Perez PA-C [address] [place] [phone] PCP - General 10/08/19 documented as of this encounter
--- OUTSIDE RECORDS SUMMARY | 2024-06-21 10:32 | XMS_ITS | Clinical Summary ---
Author Organization [facility] Medical [facility] Building [address] [place] [id number] Care Team Providers Care Distribution Warehouse Manager Name Role Phone Tasha Perez Primary Care Provider + Allergies No known active allergies Medications hydrOXYchloroQU INE (PLAQUENIL) 200 mg tablet Take 200 mg by mouth 1 Active meclizine (ANTIVERT) 12.5 mg tablet Take 1 tablet (12.5 mg total) by mouth 3 (three) times a day as needed for dizziness 30 tablet 1 2 Active omeprazole (PriLOSEC) 40 mg capsule Take 40 mg by mouth daily 2 Active albuterol HFA (Proventil HFA) 90 mcg/actuation inhaler Inhale 2 puffs every 4 (four) hours as needed for wheezing or shortness of breath 6.7 g 3 2 Active desonide (DESOWEN) 0.05 % cream APPLY TO THE AFFECTED AREA ON FACE TWICE DAILY 2 Active bacitracin ophthalmic ointment Apply to right eye 3 (three) times a day 3.5 g 4 Active amoxicillin-cla vulanate (AUGMENTIN) 875-125 mg per tablet Take 1 tablet by mouth every 12 (twelve) hours 14 tablet 4 Active Active Problems Problem Noted Date Diagnosed Date Body aches 12/17/2021 Sinus congestion 12/17/2021 Feeling of chest tightness 12/17/2021 Assessment & Plan (12/17/2021 9:09 AM CDT): Will send to [facility] now for outpatient covid 19 testing. Patient and decline an er visit now for symptoms. We will await results of the covid 19 test, will notify her of these as they become available. BMI 20.0-20.9, adult 07/16/2021 Mild intermittent asthma with acute exacerbation 07/16/2021 Assessment & Plan (07/16/2021 7:18 PM CDT): Continue with prn proventil. We discussed using LABA if needing proventil qid. 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 07/02/2021 Epigastric pain 05/28/2021 Assessment & Plan (07/16/2021 7:18 PM CDT): Improved, continue with prilosec Assessment & Plan (06/11/2021 6:59 PM MEDICAL CODING MANAGER): improving with protonix, continue with medication at this time Assessment & Plan (05/28/2021 11:46 AM MEDICAL CODING MANAGER): Will refer to gi for further evaluation and treatment Advised bland diet Will change pepcid to nexium Will evaluate abd pain further with US Rectal bleed 05/28/2021 Assessment & Plan (05/28/2021 11:45 AM MEDICAL CODING MANAGER): Patient declines rectal exam Will refer to gi Will assess for anemia with labs today Irregular menses 05/28/2021 Assessment & Plan (05/28/2021 11:45 AM MEDICAL CODING MANAGER): She was encouraged to follow up with her chip frier Calculus of gallbladder with out cholecystitis without obstruction 05/28/2021 Assessment & Plan (05/28/2021 11:47 AM MEDICAL CODING MANAGER): We reviewed ct abd/pelvis from care everywhere. Will evaluate further with US abdomen. History of Helicobacter pylori infection 022 Assessment & Plan (05/28/2021 11:46 AM MEDICAL CODING MANAGER): Will refer to gi for further evaluation and treatment Advised bland diet Will change pepcid to nexium Will evaluate abd pain further with US History of COVID-19 05/28/2021 Dizziness 11/27/2020 Assessment & Plan (07/16/2021 7:17 PM CDT): Continue with prn antivert Assessment & Plan (06/11/2021 7:35 PM MEDICAL CODING MANAGER): Add prn meclizine, advised no driving for 6h after taking as it may make her drowsy Discussed further evaluation with imaging if symptoms continue Assessment & Plan (05/28/2021 11:46 AM MEDICAL CODING MANAGER): Will evaluate further with labs for anemia 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 Alopecia 08/28/2020 Overview (05/25/2021): Last Assessment & Plan: - likely telogen effluvium due to severe COVID infection in May 2020 - discussed etiology, typical course, expect improvement within 6 months 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 Overview (05/25/2021): Last Assessment & Plan: - improved - continue tretinoin QHS or 2-3 times weekly as tolerated, provided tretinoin foam samples, counseled on apply to whole face and not spot treating areas - continue desonide cream QD - continue hydroxychloroquine 200 mg PO QD - continue sun protection Blood glucose abnormal 12/09/2019 Depressive disorder 12/09/2019 Dysfunctional uterine bleeding 12/09/2019 Headache 12/09/2019 Knee pain 12/09/2019 Dermatomyositis 10/11/2019 Assessment & Plan (05/28/2021 11:47 AM MEDICAL CODING MANAGER): Advised follow up with derm - note pending to her specialist per care everywhere Discussed using cetaphil wash bid and cream bid due to dryness of skin Weakness 10/11/2019 Weight loss 10/11/2019 Recurrent urinary tract infection 08/05/2018 Seasonal allergies 10/01/2017 Dysmenorrhea 03/31/2017 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/03/2017 Family history of kidney disease 02/26/2016 Resolved Problems Problem Noted Date Diagnosed Date Resolved Date Encounter to establish care 05/28/2021 12/17/2021 Assessment & Plan (05/28/2021 11:46 AM MEDICAL CODING MANAGER): Retrieve records from previous pcp Immunizations Immunization Administration Dates Next Due DTaP 08/30/2014 Influenza, Quadrivalent, Viry l Culture-based MDCK, Preservative Free, Antibiotic Free, Intramuscular 01/31/2020 Influenza, Quadrivalent, Rec ombinant, Egg Free, Preservative Free, Intramuscular 01/30/2021 Influenza, Quadrivalent, Spl it, Intramuscular 01/21/2018,02/26/2016,04/10/2015 Influenza, Quadrivalent, Spl it, Preservative Free, Intramuscular 01/02/2017 Influenza, Trivalent, IM (MDV) 05/06/2014,2012 Pfizer SARS-CoV-2 Monovalent Vaccination (12+ Yrs) PURPLE 04/27/2021 Tdap 08/30/2014,08/23/2013 Surgical History Surgery Date Site/Laterality Comments SECTION Family History Medical History Relation Name Comments Kidney disease Brother Diabetes Mother Kidney disease Sister Relation Name Status Comments Brother Mother Sister Social History Tobacco Use Types Packs/Day Years Used Date Smoking Tobacco: Never Smokeless Tobacco: Never AUDIT-C Answer Date Recorded Q1: How often do you have a drink containing alc ohol? Never 07/16/2021 Average Number of Drinks Not on file 022 Q3: How often do you have si x or more drinks on one occasion? Never 07/16/2021 PHQ-2 Answer Date Recorded PHQ-2 Total Score (If total score is 3 or more points, staff should administer the PHQ-9) 0 07/16/2021 Personal Safety Answer Date Recorded Have you ever been in or are you currently in a harmful physical or emotional relationship or is someone making you feel afraid or unsafe? 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 on file Not on file Not on file Obstetrics History Para Term AB IAB SAB Ectopic Multiple Livin g Live Births 3 3 3 Date Outcome GA Total Labor Labor/2nd/3rd Weight Sex Type Anes PTL Kaylah A1 A5 Name Clin Term Term Term Last Filed Vital Signs Vital Sign Reading Time Taken Comments Blood Pressure 101/73 01/10/2024 4:13 AM CDT Pulse 69 01/10/2024 4:13 AM CDT Temperature 36.7 C (98.1 F) 01/09/2024 5:57 PM CDT Respiratory Rate 16 01/10/2024 4:13 AM CDT Oxygen Saturation 99% 01/10/2024 4:13 AM CDT Inhaled Oxygen Concentration - - Weight 55.8 kg (123 lb 0.3 oz) 01/09/2024 5:57 P M CDT Height 167.5 cm (5' 5.95 ) 01/09/2024 5:57 PM CD T Body Mass Index 19.89 01/09/2024 5:57 PM CDT Plan of Treatment Health Maintenance Due Date Last Done Comments Cervical Cancer Screening 1980 Hepatitis C Screening 1980 Varicella Vaccines (1 of 2 - 13+ 2-dose series) 1993 Hepatitis B Screening 1998 Regular Well Visit/Exam 18-64 1998 Pneumococcal vaccine <65 (1 of 2 - PCV) 1999 Zoster Vaccine (1 of 2) 1999 Depression Screening 07/16/2022 07/16/2021, 06/11/2021, 05/28/2021 Breast Cancer Screening-Mammogram 07/09/2023 07/08/2022, 02/15/2021, 11/22/2019 Covid-19 Vaccine ( - 2023- season) 2023 04/27/2021, 08/07/2020, 07/17/2020 Influenza Vaccine (#1) 2023 , 01/31/2020, 01/21/2018, Additional history exists DTaP/Tdap/Td Vaccine (4 - Td or Tdap) 08/30/2024 08/30/2014, 08/30/2014, 08/23/2013 HPV Vaccines Aged Out No longer eligi ble based on patient's age to complete this topic Procedures Procedure Name Priority Date/Time Associated Diagnosis Comments SCREENING MAMMOGRAM BILATERAL W TANNER Schedule Routine, Read Routine (OP Routine) 07/08/2022 10:08 AM CDT Encounter for screening mammogram for malignant neoplasm of breast from Last 3 Months or Most Recently Relevant to Health Maintenance Results * Screening Mammogram Bilateral W Tanner (07/08/2022 10:08 AM CDT) Anatomical Region Laterality Modality Breast Bilateral Mammography Impressions 07/08/2022 10:11 AM CDT BI-RADS ATLAS category (overall): 1 - Negative There is no mammographic evidence of malignancy. A 1 year screening mammogram is recommended. The patient has been or will be contacted. We recommend annual screening mammography for women at average risk of breast cancer beginning at age 40, based on guidelines of the [place] [employer] (ACR Practice Parameter for the Performance of Screening and Diagnostic Mammography) and [place] [employer]. For women with and elevated risk of breast cancer, please refer to the ACR Practice Parameter for specific screening recommendations. The patient will be entered into a reminder system with a target due date of 1 year for her next screening exam. Narrative 07/08/2022 10:11 AM CDT Screening Mammogram Bilateral W Tanner: 07/08/22 The study was acquired using full field digital technology and interpreted from soft copy. 2D digital mammographic views, as well as 3D digital tomosynthesis were performed in the CC and MLO projections. CLINICAL: Encounter for screening mammogram for malignant neoplasm of breast. No relevant medical history has been documented for this patient. No known family history of breast cancer. COMPARISONS: 02/15/2021 Screening Mammogram Bilateral W Tanner 12/02/2019 US Breast Left Limited 11/22/2019 Screening Mammogram Bilateral W Tanner BREAST TISSUE: The breasts are heterogeneously dense, which may obscure small masses. FINDINGS: No suspicious masses, suspicious calcifications, or other suspicious findings are seen within either breast. There has been no suspicious change. Tasha LITTLE IMG MAMMO PROCEDURES Fin al Result from Last 3 Months or Most Recently Relevant to Health Maintenance Insurance [facility] Care Teams Distribution Warehouse Manager Relationship Specialty Start Date End Date Tasha Perez PA PCP - General Physician Informatics Coordinator 07/08/22
--- OUTSIDE RECORDS SUMMARY | 2024-06-21 10:32 | XMS_ITS | Encounter Summary ---
Author Organization [facility] Address [address] [place] [address] Care Team Providers Care Signals Collector/Analyst Name Role Phone Tasha Perez PA-C Primary Care Provider Encounter Details Date Type Department Care Team (Late Contact Info) Description 02/11/2024 Telephone [facility] - Centralized Scheduling [address] [place] [address] Neena Jo MD [address] [place] [address] [address] [place] [address] Social History Tobacco Use Types Packs/Day Years [...] Answer Date Recorded Patient Health Questionnaire-2 Score 2 11/05/2023 Sex and Gender Information Value Date Recorded Sex Assigned at Not on file Gender Identity Not on file Sexual Orientation Not on file documented as of this encounter Plan of Treatment Upcoming Encounters Date Type Department Care Team ([facility] Contact Info) Description 10/13/2024 2:40 PM CDT Office Visit [facility] - Rheumatology [address] [place] [address], [facility] [place] [address] Linda Pennington MD [address] [place] [address] documented as of this encounter Visit Diagnoses Not on filedocumented in this encounter Care Teams Signals Collector/Analyst Relationship Specialty Start Date End Date Tasha Perez PA-C [address] [place] [phone] PCP - General 10/08/19 documented as of this encounter
--- OUTSIDE RECORDS SUMMARY | 2024-06-21 10:33 | XMS_ITS | Referral Summary ---
Author Organization [facility] Medical Office Building [address] [place] [phone] Care Team Providers Care Jr. Java Developer Name Role Phone Tasha Perez Primary Care [...] (12/17/2021 9:09 AM CDT): Will send to [facility] now for outpatient covid 19 testing. Patient [...] prilosec Assessment & Plan (06/11/2021 6:59 PM TELEPHONE APPOINTMENT CLERK): improving with protonix, continue with medication at this time Assessment & Plan (05/28/2021 11:46 AM TELEPHONE APPOINTMENT CLERK): Will refer to gi for further evaluation and treatment Advised bland diet Will change pepcid to nexium Will evaluate abd pain further with US Rectal bleed 05/28/2021 Assessment & Plan (05/28/2021 11:45 AM TELEPHONE APPOINTMENT CLERK): Patient declines rectal exam Will refer to gi Will assess for anemia with labs today Irregular menses 05/28/2021 Assessment & Plan (05/28/2021 11:45 AM TELEPHONE APPOINTMENT CLERK): She was encouraged to follow up with her database dba Calculus of gallbladder with out cholecystitis without obstruction 05/28/2021 Assessment & Plan (05/28/2021 11:47 AM TELEPHONE APPOINTMENT CLERK): We reviewed ct abd/pelvis from care everywhere. Will evaluate further with US abdomen. History of Helicobacter pylori infection 022 Assessment & Plan (05/28/2021 11:46 AM TELEPHONE APPOINTMENT CLERK): Will refer to gi for further evaluation and treatment Advised bland diet Will change pepcid to nexium Will evaluate abd pain further with US History of COVID-19 05/28/2021 Dizziness 11/27/2020 Assessment & Plan (07/16/2021 7:17 PM CDT): Continue with prn antivert Assessment & Plan (06/11/2021 7:35 PM TELEPHONE APPOINTMENT CLERK): Add prn meclizine, advised no driving for 6h after taking as it may make her drowsy Discussed further evaluation with imaging if symptoms continue Assessment & Plan (05/28/2021 11:46 AM TELEPHONE APPOINTMENT CLERK): Will evaluate further with labs for anemia [...] 10/11/2019 Assessment & Plan (05/28/2021 11:47 AM TELEPHONE APPOINTMENT CLERK): Advised follow up with derm - note [...] 12/17/2021 Assessment & Plan (05/28/2021 11:46 AM TELEPHONE APPOINTMENT CLERK): Retrieve records from previous pcp Immunizations Immunization [...] Vaccination (12+ Yrs) PURPLE 04/27/2021 Tdap 08/30/2014,08/23/2013 Social History Tobacco Use Types Packs/Day Years [...] on file Legal Sex Female 9:29 AM TELEPHONE APPOINTMENT CLERK Gender Identity Not on file Sexual Orientation Not on file 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 For women [...] Most Recently Relevant to Health Maintenance Insurance [id number] [place] [address] [facility] Care Teams Jr. Java Developer Relationship Specialty Start Date End Date Tasha Perez PA PCP - General Physician Tank Car Cleaner 07/08/22
--- OUTSIDE RECORDS SUMMARY | 2024-06-21 10:33 | XMS_ITS | Clinical Summary ---
Author Organization [facility] Care Team Providers Care Dining Room Maid Name Role Phone Unavailable Primary Care Provider Unavailabl e Social History Tobacco Use Types Packs/Day Years Used Date Smoking Tobacco: Never Assessed Comments Unknown Sex and Gender Information Value Date Recorded Sex Assigned at Not on file Legal Sex Female 8:51 AM MANAGER UI Gender Identity Not on file Sexual Orientation Not on file Plan of Treatment Health Maintenance Due Date Last Done Comments Hepatitis C Virus (HCV) Screening 1980 Hepatitis B Immunization (1 of 3 - 19+ 3-dose series) 1999 Pap Smear 2001 Cervical Cancer Screening (CCS) 2010 HPV/Cotest 2010 Discussion re Starting/Frequency of Mammograms 2020 Influenza Immunization (#1) 12/28/202308/2019, 01/21/2018, 01/02/2017, Additional history exists SARS-COV-2 Immunization (2023- season) 2023 08/07/2020, 07/17/2020 Respiratory Syncytial Virus (RSV) Immunization (Adult) (1 - 1-dose 75+ series) 2055 DTaP/Tdap/Td Immunization Discontinued 08/30/2014, TdaP Immunization Completed 08/30/2014, 08/23/2013 Meningococcal Immunization (ACWY) Aged Out No longer eligible based on patient's age to complete this topic Pneumococcal Immunization Combined Aged Out No longer eligible based on patient's age to complete this topic Rotavirus Immunization Aged Out No lo nger eligible based on patient's age to complete this topic
--- OUTSIDE RECORDS SUMMARY | 2024-06-21 10:33 | XMS_ITS | Clinical Summary ---
Author Organization [facility] Address [address] [place] [address] Care Team Providers Care Drum Sander Name Role Phone Tasha Perez PA-C Primary Care Provider Source Comments [facility],non-owned Affiliates and Associated Physician Practices is amultiple site organization consisting of ambulatory clinics and hospital sitesin [place], [place], [place] and [place]. This disclosure is being madepursuant to the Care Everywhere program and may not contain all information available regarding this patient. Last updated 18.[facility] Allergies No known active allergies Medications * Be aware that medications may not be up to date on this document. Alwaysverify current medications with the patient. Medication Sig Dispensed Refills Start Date End Date Status mycophenolate (Cellcept) 500 MG tabletIndications :Dermatomyositis (HCC) Take 1 (one) tablet by mouth 2 times daily 60 tablet 6 06/15/2024 Active meloxicam (Mobic) 15 MG tablet Take 1 (one) tablet by mouth once daily 30 tablet 3 06/15/2024 Active omeprazole (PRILOSEC) 40 MG capsule Take 1 (one) capsule by mouth once daily 30 capsule 5 06/12/2021 06/15/2024 Discontinued (List Clean-Up) ibuprofen (Motrin) 800 MG tablet Take 1 (one) tablet by mouth 3 times daily as needed for Pain 10/06/2023 06/15/2024 Discontinued (List Clean-Up) mycophenolate (Cellcept) 500 MG tabletIndications :Dermatomyositis (HCC) Take 1 (one) tablet by mouth 2 times daily 60 tablet 6 11/05/2023 06/15/2024 Discontinued (Reorder) Active Problems Problem Noted Date Diagnosed Date Body aches 12/17/2021 Feeling of chest tightness 12/17/2021 Overview (03/04/2022): Last Assessment & Plan: Will send to [place] now for outpatient covid 19 testing. Patient and decline an er visit now for symptoms. We will await results of the covid 19 test, will notify her of these as they become available. 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 Assessment & Plan (08/28/2020 3:43 PM CDT): - improved - continue tretinoin QHS or 2-3 times weekly as tolerated, provided tretinoin foam samples, counseled on apply to whole face and not spot treating areas - continue desonide cream QD - continue hydroxychloroquine 200 mg PO QD - continue sun protection Assessment & Plan (05/31/2020 1:45 PM SIGNALLING AND COMMUNICATIONS ENGINEER): Improved -Continue HCQ 200mg daily -Continue Desonide 0.05% cream daily -Continue tretinoin 0.05% cream nightly -Discussed daily broad-spectrum sunscreen Encounter for long-term current use of high risk medication 05/31/2020 Assessment & Plan (08/28/2020 3:45 PM CDT): - up to date on eye exam (last 12/2019) - up to date on labs, CBC and CMP wnl 08/25/2020; will not order repeat labs until next visit Assessment & Plan (05/31/2020 4:27 PM SIGNALLING AND COMMUNICATIONS ENGINEER): Hydroxychloroquine - CBC and CMP ordered to be completed this week - Annual eye exam. 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 We discussed using LABA if needing proventil qid. Cough 12/09/2019 01/06/2020 Cough 10/11/2019 11/08/2019 Encounters Date Type Department Care Team Description 06/21/2024 Telephone [facility] - Rheumatology [address] [place] [address], [place] [phone] Linda Pennington MD Question 06/21/2024 Telephone [facility] - Rheumatology [address] [place] [phone] Linda Pennington MD Requesting Labs 06/15/2024 3:20 PM SIGNALLING AND COMMUNICATIONS ENGINEER Office Visit [facility] Rheumatology [address] [place] [address] [place] [phone] Linda Pennington MD Adult onset amyopathic dermatomyositis (HCC) (Primary Dx); Encounter for long-term (current) use of high-risk medication; Encounter for therapeutic drug monitoring; Dermatomyositis (HCC) 06/15/2024 Travel from Last 3 Months Immunizations Name Administration Dates Next Due INFLUENZA VACCINE, TRIV. (AF LURIA, FLUZONE TRIVALENT; 6MO+) (IIV3) 05/06/2014,03/19/2013 Covid [employer] primary monoval ent 12+ yr 0.3mL Purple cap 04/27/2021 DTaP VACCINE IM (6wk-6yrs) 08/30/2014 FLU VACCINE QUAD IIV4 SPLIT 0.25 ML IM 8,02/26/2016,04/10/2015 INFLUENZA VACCINE, CELL CULT URE, QUADR. (FLUCELVAX QUADRIVALENT; 6MO+) (CCIIV4) 01/31/2020 INFLUENZA VACCINE, QUADR. (F LUZONE; FLULAVAL; FLUARIX; AFLURIA QUADRIVALENT; 6MO+), 0.5 ML (IIV4) 01/02/2017 TDAP (7yrs+) 08/30/2014,08/23/2013 iNFLUENZA VACCINE, RECOM-CAMPO, QUADR. (FLUBLOCK QUADRIVALENT; 18Y+) (RIV4) 01/30/2021 Family History Medical History Relation Name Comments None Known Brother None Known Father None Known Maternal Aunt None Known Maternal Grandfather None Known Maternal Grandmother None Known Maternal Uncle None Known Mother None Known Other None Known Paternal Aunt None Known Paternal Grandfather None Known Paternal Grandmother None Known Paternal Uncle None Known Sister Asthma Neg Hx CVA Neg Hx Cancer - Breast Neg Hx Cancer - Other Neg Hx Cancer - Skin, Melanoma Neg Hx Cancer - Skin, Non Melanoma Neg Hx Eczema Neg Hx Hemophilia Neg Hx Psoriasis Neg Hx Relation Name Status Comments Brother Father Maternal Aunt Maternal Grandfather Maternal Grandmother Maternal Uncle Mother Other Paternal Aunt Paternal Grandfather Paternal Grandmother Paternal Uncle Sister Social History Tobacco Use Types Packs/Day Years Used Date Smoking Tobacco: Never Smokeless Tobacco: Never Tobacco Cessation:Counseling Given: Not Answered Alcohol Use Standard Drinks/Week Comments Not Currently [...] on file Sexual Orientation Not on file Last Filed Vital Signs Vital Sign Reading Time Taken Comments Blood Pressure 120/73 06/15/2024 3:28 PM SIGNALLING AND COMMUNICATIONS ENGINEER Pulse 78 06/15/2024 3:28 PM SIGNALLING AND COMMUNICATIONS ENGINEER Temperature 36.1 C (97 F) 06/15/2024 3:28 PM SIGNALLING AND COMMUNICATIONS ENGINEER Respiratory Rate 16 12/18/2021 6:24 PM CDT Oxygen Saturation 98% 06/15/2024 3:28 PM SIGNALLING AND COMMUNICATIONS ENGINEER Inhaled Oxygen Concentration - - Weight 58 kg (127 lb 12.8 oz) 06/15/2024 3:28 PM SIGNALLING AND COMMUNICATIONS ENGINEER Height 162.6 cm (5' 4 ) 06/15/2024 3:28 PM SIGNALLING AND COMMUNICATIONS ENGINEER Body Mass Index 21.94 06/15/2024 3:28 PM SIGNALLING AND COMMUNICATIONS ENGINEER Plan of Treatment Upcoming Encounters Date Type Department Care Team (Late st Contact Info) Description 10/13/2024 2:40 PM CDT Office Visit [facility] - Rheumatology [address] [place] [address], [facility] [place] [phone] Linda Pennington MD [address] [place] [address] [place] [phone] Health Maintenance Due Date Last Done Comments LIPID TESTING 1980 PAP SMEAR 1980 HIV SCREENING 1995 HEPATITIS C SCREENING 04/12/1998 HEPATITIS B VACCINE (1 of 3 - 19+ 3-dose series) 1999 PNEUMOCOCCAL VACCINE (1 of 2 - PCV) 1999 ZOSTER VACCINE (1 of 2) 1999 COVID-19 VACCINE ( season) 2023 05/05/2021, 04/27/2021, 08/07/2020, Additional history exists INFLUENZA VACCINE (#1) 2023 , 01/31/2020, 01/21/2018, Additional history exists MAMMOGRAM 07/08/2024 07/08/2022, 06/26, 02/15/2021, Additional history exists DTAP/TDAP/TD VACCINES (4 - Td or Tdap) 08/30/2024 08/30/2014, 08/30/2014, 08/23/2013 DEPRESSION SCREENING Completed 06/15/2024, 11/05/2023, 11/05/2022, Additional history exists HIB VACCINE Aged Out No longer eligi ble based on patient's age to complete this topic HPV VACCINE Aged Out No longer eligi ble based on patient's age to complete this topic MENINGOCOCCAL (Group B) VACCINE Aged Out No longer eligible based on patient's age to complete this topic MENINGOCOCCAL VACCINE Aged Out No effie ines eligible based on patient's age to complete this topic Procedures Procedure Name Priority Date/Time Associated Diagnosis Comments EXTENDED MYOSITIS PANEL 06/21/2024 8:20 AM SIGNALLING AND COMMUNICATIONS ENGINEER from Last 3 Months Care Teams Drum Sander Relationship Specialty Start Date End Date Tasha Perez PA-C [address] [place] [phone] PCP - General 10/08/19
--- OUTSIDE RECORDS SUMMARY | 2024-06-21 10:33 | XMS_ITS | Patient Health Summary ---
Author Organization [facility] Address [address] [place] [address] Care Team Providers Care Demand Generation Manager Name Role Phone Tasha Perez PA-C Primary Care Provider Note from [facility],non-owned Affiliates and Associated Physician Practices is amultiple site organization consisting of ambulatory clinics and hospital sitesin [place], [place], [place] and [place]. This disclosure is being madepursuant to the Care Everywhere program and may not contain all information available regarding this patient. Last updated 18.[facility] Allergies No known active allergies Medications * Be aware that medications may not be up to date on this document. Alwaysverify current medications with the patient. * mycophenolate (Cellcept) 500 MG tablet(Started 06/15/2024) Take 1 (one) tablet by mouth 2 times daily 6 refills by 06/15/2025 * meloxicam (Mobic) 15 MG tablet(Started 06/15/2024) Take 1 (one) tablet by mouth once daily 3 refills by 06/15/2025 Ended Medications* omeprazole (PRILOSEC) 40 MG capsule(Started 06/12/2021) (Discontinued) Take 1 (one) capsule by mouth once daily 5 refills by 06/12/2022 * ibuprofen (Motrin) 800 MG tablet(Started 10/06/2023)(Discontinued) Take 1 (one) tablet by mouth 3 times daily as needed for Pain * mycophenolate (Cellcept) 500 MG tablet(Started 11/05/2023)(Discontinued) Take 1 (one) tablet by mouth 2 times daily 6 refills by 11/04/2024 Active Problems Problem Noted Date Diagnosed Date Body aches 12/17/2021 Feeling of chest tightness 12/17/2021 Sinus congestion 12/17/2021 BMI 20.0-20.9, adult 07/16/2021 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 07/02/2021 Epigastric pain 05/28/2021 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 Dizziness 11/27/2020 Alopecia 08/28/2020 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 Encounter for long-term current use of high risk medication 05/31/2020 Dysfunctional uterine bleeding 12/09/2019 Blood glucose abnormal 12/09/2019 Depressive disorder 12/09/2019 Headache 12/09/2019 Knee pain 12/09/2019 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 (AFLURIA, FLUZONE TRIVALENT; 6MO+) (IIV3)(Given 05/06/2014, 03/19/2013) * Covid Indigoz primary monovalent 12+ yr 0.3mL Purple cap(Given 04/27/2021) * DTaP VACCINE IM (6wk-6yrs)(Given 08/30/2014) * FLU VACCINE QUAD IIV4 SPLIT 0.25 ML IM(Given 01/21/2018, 02/26/2016, 04/10/2015) * INFLUENZA VACCINE, CELL CULTURE, QUADR. (FLUCELVAX QUADRIVALENT; 6MO+) (CCIIV4)(Given 01/31/2020) * INFLUENZA VACCINE, QUADR. (FLUZONE; FLULAVAL; FLUARIX; AFLURIA QUADRIVALENT; 6MO+), 0.5 ML (IIV4)(Given 01/02/2017) * TDAP (7yrs+)(Given 08/30/2014, 08/23/2013) * iNFLUENZA VACCINE, RECOM-CAMPO, QUADR. 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 ENGINEER Pulse 78 06/15/2024 3:28 PM METEOROLOGICAL ENGINEER Temperature 36.1 C (97 F) 06/15/2024 3:28 PM METEOROLOGICAL ENGINEER Respiratory Rate 16 12/18/2021 6:24 PM CDT Oxygen Saturation 98% 06/15/2024 3:28 PM METEOROLOGICAL ENGINEER Inhaled Oxygen Concentration - - Weight 58 kg (127 lb 12.8 oz) 06/15/2024 3:28 PM METEOROLOGICAL ENGINEER Height 162.6 cm (5' 4 ) 06/15/2024 3:28 PM METEOROLOGICAL ENGINEER Body Mass Index 21.94 06/15/2024 3:28 PM METEOROLOGICAL ENGINEER Procedures * EXTENDED MYOSITIS PANEL(Performed 06/21/2024) * URINALYSIS W/MICROSCOPIC REFLEX TO CULTURE(Performed 11/05/2023) 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), Encounter for long- term (current) use of high-risk medication, Encounter for therapeutic drug monitoring * CULTURE URINE(Performed 11/05/2023) 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), Encounter for long- term (current) use of high-risk medication, Encounter for therapeutic drug monitoring * CK BLOOD(Performed 11/05/2023) 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), Encounter for long- term (current) use of high-risk medication, Encounter for therapeutic drug monitoring * ERYTHROCYTE SEDIMENTATION RATE(Performed 11/05/2023) 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), Encounter for long- term (current) use of high-risk medication, Encounter for therapeutic drug monitoring * C-REACTIVE PROTEIN(Performed 11/05/2023) 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), Encounter for long- term (current) use of high-risk medication, Encounter for therapeutic drug monitoring * COMPREHENSIVE METABOLIC PANEL(Performed 11/05/2023) 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), Encounter for long- term (current) use of high-risk medication, Encounter for therapeutic drug monitoring * CBC W AUTO DIFFERENTIAL(Performed 11/05/2023) 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), Encounter for long- term (current) use of high-risk medication, Encounter for therapeutic drug monitoring * CBC W AUTO DIFFERENTIAL(Performed 06/10/2023) 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[facility]), Encounter for long- term (current) use of high-risk medication, Encounter for therapeutic drug monitoring * COMPREHENSIVE METABOLIC PANEL(Performed 06/10/2023) 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[facility]), Encounter for long- term (current) use of high-risk medication, Encounter for therapeutic drug monitoring * C-REACTIVE PROTEIN(Performed 06/10/2023) 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), Encounter for long- term (current) use of high-risk medication, Encounter for therapeutic drug monitoring * ERYTHROCYTE SEDIMENTATION RATE(Performed 06/10/2023) 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), Encounter for long- term (current) use of high-risk medication, Encounter for therapeutic drug monitoring * URINALYSIS W/MICROSCOPIC REFLEX TO CULTURE(Performed 06/10/2023) 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[facility]), Encounter for long- term (current) use of high-risk medication, Encounter for therapeutic drug monitoring * ALDOLASE(Performed 06/10/2023) 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), Encounter for long- term (current) use of high-risk medication, Encounter for therapeutic drug monitoring * CK BLOOD(Performed 06/10/2023) 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), Encounter for long- term (current) use of high-risk medication, Encounter for therapeutic drug monitoring * LDH BLOOD(Performed 06/10/2023) 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), Encounter for long- term (current) use of high-risk medication, Encounter for therapeutic drug monitoring * CULTURE URINE REFLEXED III(Performed 06/10/2023) * ALDOLASE(Performed 12/16/2022) * CKMB(Performed 12/16/2022) * C-REACTIVE PROTEIN(Performed 12/16/2022) * URINALYSIS W/MICROSCOPIC REFLEX TO CULTURE(Performed 12/16/2022) * CBC W AUTO DIFFERENTIAL(Performed 12/16/2022) * ERYTHROCYTE SEDIMENTATION RATE(Performed 12/16/2022) * COMPREHENSIVE METABOLIC PANEL(Performed 12/16/2022) * LDH BLOOD(Performed 12/16/2022) * CULTURE URINE REFLEXED III(Performed 12/16/2022) * URINALYSIS W/MICROSCOPIC REFLEX TO CULTURE(Performed 11/05/2022) 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), Encounter for long- term (current) use of high-risk medication, Encounter for therapeutic drug monitoring * LDH BLOOD(Performed 11/05/2022) 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), Encounter for long- term (current) use of high-risk medication, Encounter for therapeutic drug monitoring * CK BLOOD(Performed 11/05/2022) 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), Encounter for long- term (current) use of high-risk medication, Encounter for therapeutic drug monitoring * ALDOLASE(Performed 11/05/2022) 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), Encounter for long- term (current) use of high-risk medication, Encounter for therapeutic drug monitoring * ERYTHROCYTE SEDIMENTATION RATE(Performed 11/05/2022) 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), Encounter for long- term (current) use of high-risk medication, Encounter for therapeutic drug monitoring * C-REACTIVE PROTEIN(Performed 11/05/2022) 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), Encounter for long- term (current) use of high-risk medication, Encounter for therapeutic drug monitoring * COMPREHENSIVE METABOLIC PANEL(Performed 11/05/2022) 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), Encounter for long- term (current) use of high-risk medication, Encounter for therapeutic drug monitoring * CBC W AUTO DIFFERENTIAL(Performed 11/05/2022) 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[facility]), Encounter for long- term (current) use of high-risk medication, Encounter for therapeutic drug monitoring * MYOSITIS ANTIBODY PANEL COMPREHENSIVE(Performed 11/05/2022) 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[facility]), Encounter for long- term (current) use of high-risk medication, Encounter for therapeutic drug monitoring * CK BLOOD(Performed 06/17/2022) 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[facility]), Encounter for long- term (current) use of high-risk medication, Encounter for therapeutic drug monitoring * URINALYSIS W/MICROSCOPIC REFLEX TO CULTURE(Performed 06/17/2022) 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[facility]), Encounter for long- term (current) use of high-risk medication, Encounter for therapeutic drug monitoring * ERYTHROCYTE SEDIMENTATION RATE(Performed 06/17/2022) 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[facility]), Encounter for long- term (current) use of high-risk medication, Encounter for therapeutic drug monitoring * C-REACTIVE PROTEIN(Performed 06/17/2022) 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[facility]), Encounter for long- term (current) use of high-risk medication, Encounter for therapeutic drug monitoring * COMPREHENSIVE METABOLIC PANEL(Performed 06/17/2022) 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[facility]), Encounter for long- term (current) use of high-risk medication, Encounter for therapeutic drug monitoring * CBC W AUTO DIFFERENTIAL(Performed 06/17/2022) 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[facility]), Encounter for long- term (current) use of high-risk medication, Encounter for therapeutic drug monitoring * CULTURE URINE(Performed 06/17/2022) * CULTURE URINE REFLEXED II(Performed 06/17/2022) * ALDOLASE(Performed 02/11/2022) 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[facility]), Encounter for long- term (current) use of high-risk medication, Encounter for therapeutic drug monitoring * CK BLOOD(Performed 02/11/2022) 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), Encounter for long- term (current) use of high-risk medication, Encounter for therapeutic drug monitoring * URINALYSIS W/MICROSCOPIC REFLEX TO CULTURE(Performed 02/11/2022) 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), Encounter for long- term (current) use of high-risk medication, Encounter for therapeutic drug monitoring * ERYTHROCYTE SEDIMENTATION RATE(Performed 02/11/2022) 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), Encounter for long- term (current) use of high-risk medication, Encounter for therapeutic drug monitoring * C-REACTIVE PROTEIN(Performed 02/11/2022) 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), Encounter for long- term (current) use of high-risk medication, Encounter for therapeutic drug monitoring * COMPREHENSIVE METABOLIC PANEL(Performed 02/11/2022) 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), Encounter for long- term (current) use of high-risk medication, Encounter for therapeutic drug monitoring * CBC W AUTO DIFFERENTIAL(Performed 02/11/2022) 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), Encounter for long- term (current) use of high-risk medication, Encounter for therapeutic drug monitoring * CULTURE URINE REFLEXED III(Performed 02/11/2022) * OPH OCT TEST SLU(Performed 01/15/2022) Performed for Long-term use of Plaquenil * CARDIAC EKG ORDER(Performed 12/20/2021) * TROPONIN I(Performed 12/18/2021) * XR CHEST 2VW(Performed 12/18/2021) Performed for Chest pain, unspecified type * HCG BETA BLOOD QUANTITATIVE(Performed 12/18/2021) * TROPONIN I(Performed 12/18/2021) * COMPREHENSIVE METABOLIC PANEL(Performed 12/18/2021) * CBC W AUTO DIFFERENTIAL(Performed 12/18/2021) * SARS-COV-2 (COVID-19) RAPID(Performed 12/18/2021) * URINALYSIS REFLEX TO MICROSCOPIC NO CULTURE(Performed 12/18/2021) * EKG 12-LEAD(Performed 12/18/2021) Performed for Chest pain, unspecified type * FL SWALLOWING FUNCTION STUDY(Performed 12/13/2021) Performed for Oropharyngeal dysphagia * COMPREHENSIVE METABOLIC PANEL(Performed 12/10/2021) Performed for Erythema dyschromicum perstans * CBC W AUTO DIFFERENTIAL(Performed 12/10/2021) Performed for Erythema dyschromicum perstans * MYOSITIS ANTIBODY PANEL COMPREHENSIVE(Performed 12/04/2021) Performed for Oropharyngeal dysphagia, Encounter for long-term (current) use of high-risk medication, Encounter for therapeutic drug monitoring, 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[facility]) * LDH BLOOD(Performed 12/04/2021) Performed for Oropharyngeal dysphagia, Encounter for long-term (current) use of high-risk medication, Encounter for therapeutic drug monitoring, 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[facility]) * CK BLOOD(Performed 12/04/2021) Performed for Oropharyngeal dysphagia, Encounter for long-term (current) use of high-risk medication, Encounter for therapeutic drug monitoring, 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[facility]) * ALDOLASE(Performed 12/04/2021) Performed for Oropharyngeal dysphagia, Encounter for long-term (current) use of high-risk medication, Encounter for therapeutic drug monitoring, 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[facility]) * URINALYSIS W/MICROSCOPIC REFLEX TO CULTURE(Performed 12/04/2021) Performed for Oropharyngeal dysphagia, Encounter for long-term (current) use of high-risk medication, Encounter for therapeutic drug monitoring, 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[facility]) * ERYTHROCYTE SEDIMENTATION RATE(Performed 12/04/2021) Performed for Oropharyngeal dysphagia, Encounter for long-term (current) use of high-risk medication, Encounter for therapeutic drug monitoring, 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[facility]) * C-REACTIVE PROTEIN(Performed 12/04/2021) Performed for Oropharyngeal dysphagia, Encounter for long-term (current) use of high-risk medication, Encounter for therapeutic drug monitoring, 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[facility]) * CBC W AUTO DIFFERENTIAL(Performed 12/04/2021) Performed for Oropharyngeal dysphagia, Encounter for long-term (current) use of high-risk medication, Encounter for therapeutic drug monitoring, 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[facility]) * COMPREHENSIVE METABOLIC PANEL(Performed 12/04/2021) Performed for Oropharyngeal dysphagia, Encounter for long-term (current) use of high-risk medication, Encounter for therapeutic drug monitoring, 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[facility]) * COMPLETE PFT W/WO BRONCHODILATOR(Performed 08/20/2021) Performed for Chronic cough, Dyspnea on exertion, Dermatomyositis ([facility]) * MYOSITIS 11 ANTIBODY PNL(Performed 01/15/2021) Performed for Encounter for long-term (current) use of high-risk medication, Encounter for therapeutic drug monitoring, 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[facility]) * LDH BLOOD(Performed 01/15/2021) Performed for Encounter for long-term (current) use of high-risk medication, Encounter for therapeutic drug monitoring, 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[facility]) * CK BLOOD(Performed 01/15/2021) Performed for Encounter for long-term (current) use of high-risk medication, Encounter for therapeutic drug monitoring, 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[facility]) * ALDOLASE(Performed 01/15/2021) Performed for Encounter for long-term (current) use of high-risk medication, Encounter for therapeutic drug monitoring, 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[facility]) * URINALYSIS W/MICROSCOPIC REFLEX TO CULTURE(Performed 01/15/2021) Performed for Encounter for long-term (current) use of high-risk medication, Encounter for therapeutic drug monitoring, 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[facility]) * ERYTHROCYTE SEDIMENTATION RATE(Performed 01/15/2021) Performed for Encounter for long-term (current) use of high-risk medication, Encounter for therapeutic drug monitoring, 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[facility]) * C-REACTIVE PROTEIN(Performed 01/15/2021) Performed for Encounter for long-term (current) use of high-risk medication, Encounter for therapeutic drug monitoring, 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[facility]) * COMPREHENSIVE METABOLIC PANEL(Performed 01/15/2021) Performed for Encounter for long-term (current) use of high-risk medication, Encounter for therapeutic drug monitoring, 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[facility]) * CBC W AUTO DIFFERENTIAL(Performed 01/15/2021) Performed for Encounter for long-term (current) use of high-risk medication, Encounter for therapeutic drug monitoring, 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[facility]) * CULTURE URINE(Performed 01/15/2021) * CULTURE URINE REFLEXED II(Performed 01/15/2021) * OPH CORNEAL TOPOGRAPHY TEST [facility]U(Performed 01/15/2021) Performed for Blurred vision, bilateral * OPH VISUAL FIELD TEST [facility]U(Performed 01/15/2021) Performed for Long-term use of Plaquenil * OPH OCT TEST [facility](Performed 01/15/2021) Performed for Long-term use of Plaquenil * CBC W AUTO DIFFERENTIAL(Performed 08/25/2020) * COMPREHENSIVE METABOLIC PANEL(Performed 08/25/2020) * NM H PYLORI BREATH TEST(Performed 05/31/2020) Performed for H. pylori infection * PATHOLOGY TISSUE(Performed 04/04/2020) Performed for Dermatomyositis (HCC), Weight loss, Abdominal pain, unspecified abdominal location * COLONOSCOPY SCREEN(Performed 04/04/2020) Performed for Dermatomyositis (HCC), Weight loss, Abdominal pain, unspecified abdominal location * NV ED EGD FLEX TRANSORAL DX(Performed 04/04/2020) Performed for Dermatomyositis (HCC), Weight loss, Abdominal pain, unspecified abdominal location * ENDOSCOPY, COLON, DIAGNOSTIC(Performed 04/04/2020) * EGD(Performed 04/04/2020) * HCG URINE QUALITATIVE - POCT (IP) INTERFACED(Performed 04/04/2020) * HCG URINE QUAL POCT NOTIFICATION(Performed 04/04/2020) Performed for Preprocedural examination * URINALYSIS W/MICROSCOPIC NO CULTURE(Performed 01/31/2020) Performed for Encounter for long-term current use of high risk medication * CBC W AUTO DIFFERENTIAL(Performed 01/31/2020) Performed for Encounter for long-term current use of high risk medication * COMPREHENSIVE METABOLIC PANEL(Performed 01/31/2020) Performed for Encounter for long-term current use of high risk medication * C-REACTIVE PROTEIN(Performed 01/31/2020) Performed for Encounter for long-term current use of high risk medication * ERYTHROCYTE SEDIMENTATION RATE(Performed 01/31/2020) Performed for Encounter for long-term current use of high risk medication * ALDOLASE(Performed 01/31/2020) Performed for Encounter for long-term current use of high risk medication * CK BLOOD(Performed 01/31/2020) Performed for Encounter for long-term current use of high risk medication * T4 FREE(Performed 01/31/2020) Performed for Encounter for long-term (current) use of high-risk medication * TSH(Performed 01/31/2020) Performed for Encounter for long-term (current) use of high-risk medication * OPH OCT TEST [facility]U(Performed 01/10/2020) Performed for Long-term use of Plaquenil * CT CHEST ABDOMEN PELVIS W CONT(Performed 12/31/2019) Performed for Dermatomyositis (HCC) * CREATININE - POCT INTERFACED(Performed 12/31/2019) * XR KNEE RIGHT 2VW OR LESS(Performed 12/09/2019) Performed for Dermatomyositis (HCC), Right knee pain, unspecified chronicity, Polyarthralgia, Otherfatigue, Myalgia * XR KNEE LEFT 2VW OR LESS(Performed 12/09/2019) Performed for Dermatomyositis (HCC), Right knee pain, unspecified chronicity, Polyarthralgia, Otherfatigue, Myalgia * XR HAND RIGHT 2VW(Performed 12/09/2019) Performed for Dermatomyositis (HCC), Right knee pain, unspecified chronicity, Polyarthralgia, Otherfatigue, Myalgia * XR HAND LEFT 2VW(Performed 12/09/2019) Performed for Dermatomyositis (HCC), Right knee pain, unspecified chronicity, Polyarthralgia, Otherfatigue, Myalgia * URINALYSIS W/MICROSCOPIC NO CULTURE(Performed 12/09/2019) Performed for Dermatomyositis (HCC), Right knee pain, unspecified chronicity, Polyarthralgia, Otherfatigue, Myalgia * VON [place]IL[place] ANTIGEN(Performed 12/09/2019) Performed for Dermatomyositis (HCC), Right knee pain, unspecified chronicity, Polyarthralgia, Otherfatigue, Myalgia * LDH BLOOD(Performed 12/09/2019) Performed for Dermatomyositis (HCC), Right knee pain, unspecified chronicity, Polyarthralgia, Otherfatigue, Myalgia * CK BLOOD(Performed 12/09/2019) Performed for Dermatomyositis (HCC), Right knee pain, unspecified chronicity, Polyarthralgia, Otherfatigue, Myalgia * ALDOLASE(Performed 12/09/2019) Performed for Dermatomyositis (HCC), Right knee pain, unspecified chronicity, Polyarthralgia, Otherfatigue, Myalgia * ERYTHROCYTE SEDIMENTATION RATE(Performed 12/09/2019) Performed for Dermatomyositis (HCC), Right knee pain, unspecified chronicity, Polyarthralgia, Otherfatigue, Myalgia * C-REACTIVE PROTEIN(Performed 12/09/2019) Performed for Dermatomyositis (HCC), Right knee pain, unspecified chronicity, Polyarthralgia, Otherfatigue, Myalgia * COMPREHENSIVE METABOLIC PANEL(Performed 12/09/2019) Performed for Dermatomyositis (HCC), Right knee pain, unspecified chronicity, Polyarthralgia, Otherfatigue, Myalgia * CBC W AUTO DIFFERENTIAL(Performed 12/09/2019) Performed for Dermatomyositis (HCC), Right knee pain, unspecified chronicity, Polyarthralgia, Otherfatigue, Myalgia * SS-A (SJOGREN'S) 52+60 ANTIBODIES(Performed 11/16/2019) Performed for Dermatomyositis (HCC), Dyspnea on exertion, Chronic cough * CK BLOOD(Performed 11/16/2019) Performed for Dermatomyositis (HCC), Dyspnea on exertion, Chronic cough * MYOSITIS ANTIBODY PANEL COMPREHENSIVE(Performed 11/16/2019) Performed for Dermatomyositis (HCC), Dyspnea on exertion, Chronic cough * [place] (SM) ANTIBODY COURT(Performed 11/16/2019) Performed for Dermatomyositis (HCC), Dyspnea on exertion, Chronic cough * COMPREHENSIVE METABOLIC PANEL(Performed 11/16/2019) Performed for Dermatomyositis (HCC), Dyspnea on exertion, Chronic cough * CBC W AUTO DIFFERENTIAL(Performed 11/16/2019) Performed for Dermatomyositis (HCC), Dyspnea on exertion, Chronic cough * MAKAYLA-1 ANTIBODY(Performed 11/16/2019) Performed for Dermatomyositis (HCC), Dyspnea on exertion, Chronic cough * CYCLIC CITRULLINATED PEPTIDE(CCP) AB IGG(Performed 11/16/2019) Performed for Dermatomyositis (HCC), Dyspnea on exertion, Chronic cough * SCLERODERMA COMPREHENSIVE AB PANEL(Performed 11/16/2019) Performed for Dermatomyositis (HCC), Dyspnea on exertion, Chronic cough * SS-B (SJOGREN'S) ANTIBODY(Performed 11/16/2019) Performed for Dermatomyositis (HCC), Dyspnea on exertion, Chronic cough * RHEUMATOID FACTOR BLOOD QUANTITATIVE(Performed 11/16/2019) Performed for Dermatomyositis (HCC), Dyspnea on exertion, Chronic cough * DNA ANTIBODY DOUBLE STRANDED(Performed 11/16/2019) Performed for Dermatomyositis (HCC), Dyspnea on exertion, Chronic cough * BENNETT BLOOD SCREEN W/REFLEX TITER(Performed 11/16/2019) Performed for Dermatomyositis (HCC), Dyspnea on exertion, Chronic cough * DERMATOPATHOLOGY(Performed 09/06/2019) Results * (ABNORMAL) URINALYSIS W/MICROSCOPIC REFLEX TO CULTURE (11/05/2023 2:22 PM CD) Only the most recent of8 resultswithin the time period is included. Color UA Yellow Straw, Yellow 11/05/2023 3:18 PM [facility] Clarity UA Cloudy(A) Clear 11/05/2023 3:18 PM [facility] Specific [place] UA 1.014 1.005 - 1.030 11/05/2023 3:18 PM [facility] pH UA 8.0 5.0 - 8.0 pH 11/05/2023 3:18 PM [facility] Protein UA Negative Negative 11/05/2023 3:18 PM [facility] Glucose UA Negative Negative 11/05/2023 3:18 PM [facility] Ketone UA Negative Negative 11/05/2023 3:18 PM [facility] Bilirubin UA Negative Negative 11/05/2023 3:18 PM [facility] Blood UA Negative Negative 11/05/2023 3:18 PM [facility] Nitrite UA Negative Negative 11/05/2023 3:18 PM [facility] Leukocyte Esterase Trace(A) Negative 11/05/2023 3:18 PM [facility] Urobilinogen UA Negative Negative mg/dL 11/05/2023 3:18 PM [facility] RBC UA 3-5 None Seen, 0-2, 3-5 /HPF 11/05/2023 3:18 PM [facility] WBC UA 0-5 None Seen, 0-5 /HPF 11/05/2023 3:18 PM [facility] Bacteria UA Trace(A) None /HPF 11/05/2023 3:18 PM [facility] Squamous Epithelial Cells UA 6-10(A) None Seen, 0-2, 3-5 /HPF 11/05/2023 3:18 PM [facility] Amorphous Crystals Few(A) None /HPF 11/05/2023 3:18 PM [facility] Urine MID-STREAM URINE SPECIMEN / Unknown Collection / Unknown 11/05/2023 2:22 PM CDT 11/05/2023 3:03 PM CDT Narrative [facility] - 11/05/2023 3:18 PM CDT Lab Status, Culture Reflex Indicated. Linda Pennington MD LAB - URINALYS IS ORDERABLES Performing Organization Address City/[facility]/ZIP Co de Phone Number [facility] [address] [place] [phone], [place] [phone] * CULTURE URINE (11/05/2023 2:22 PM CDT) Only the most recent of3 resultswithin the time period is included. Culture Urine 50,000-100,000 CFU/mL urogenital nneka AUDREY 11/07/2023 2:11 AM CDT [facility] Urine MID-STREAM URINE SPECIMEN / Unknown Collection / Unknown 11/05/2023 2:22 PM CDT 11/05/2023 3:17 PM CDT Linda Pennington MD LAB - MICROBIO LOGY ORDERABLES Performing Organization Address City/[facility]/ZIP Co de Phone Number [facility] [address] [place] [address], [place] [phone] * C-REACTIVE PROTEIN (11/05/2023 2:15 PM CDT) Only the most recent of10 resultswithin the time period is included. C-Reactive Protein <0.5 <=0.5 mg/dL 11/05/2023 3:00 PM CDT [facility] Blood BLOOD SPECIMEN / Unknown Lab Venipuncture / Unknown 11/05/2023 2:15 PM CDT 11/05/2023 2:32 PM CDT Linda Pennington MD LAB - CHEMISTR Y ORDERABLES Performing Organization Address City/[facility]/ZIP Co de Phone Number [facility] [address] [place] [phone], [place] [phone] * ERYTHROCYTE SEDIMENTATION RATE (11/05/2023 2:15 PM CDT) Only the most recent of10 resultswithin the time period is included. Erythrocyte Sedimentation Rate Westergren 9 0 - 20 MM/HR 11/05/2023 2:42 PM [facility] Blood BLOOD SPECIMEN / Unknown Lab Venipuncture / Unknown 11/05/2023 2:15 PM CDT 11/05/2023 2:32 PM CDT Linda Pennington MD LAB - HEMATOLO GY ORDERABLES [facility] [address] [place] [address], [place] [phone] * CBC WITH DIFFERENTIAL (11/05/2023 2:15 PM CDT) Only the most recent of14 resultswithin the time period is included. WBC 6.6 4.0 - 10.7 x10E9/L 11/05/2023 2:37 PM [facility] RBC Count 4.52 3.90 - 5.20 x10E12/L 11/05/2023 2:37 PM [facility] Hemoglobin 13.6 11.9 - 15.8 g/dL 11/05/2023 2:37 PM [facility] Hematocrit 40.0 34.8 - 46.1 % 11/05/2023 2:37 PM [facility] MCV 88.5 80.0 - 98.0 fL 11/05/2023 2:37 PM [facility] MCH 30.1 26.7 - 33.6 pg 11/05/2023 2:37 PM [facility] MCHC 34.0 31.7 - 36.3 g/dL 11/05/2023 2:37 PM [facility] RDW-CV 11.7 11.3 - 14.8 % 11/05/2023 2:37 PM [facility] Platelet Count 291 150 - 420 x10E9/L 11/05/2023 2:37 PM [facility] MPV 8.8 7.8 - 11.4 fL 11/05/2023 2:37 PM [facility] Neutrophil % 60.1 41.0 - 74.0 % 11/05/2023 2:37 PM [facility] Lymphocyte % 27.9 17.0 - 47.0 % 11/05/2023 2:37 PM T [facility] Monocyte % 7.3 3.0 - 11.0 % 11/05/2023 2:37 PM T [facility] Eosinophil % 3.8 0.0 - 7.0 % 11/05/2023 2:37 PM [facility] Basophil % 0.6 0.0 - 1.6 % 11/05/2023 2:37 PM T [facility] Immature Granulocytes % 0.3 0.0 - 1.0 % 11/05/2023 2:37 PM [facility] Neutrophil Absolute 3.95 1.60 - 7.50 x10E9/L 11/05/2023 2:37 PM [facility] Lymphocyte Absolute 1.83 1.00 - 4.40 x10E9/L 11/05/2023 2:37 PM T [facility] Monocyte Absolute 0.48 0.15 - 1.00 x10E9/L 11/05/2023 2:37 PM [facility] Eosinophil Absolute 0.25 0.00 - 0.60 x10E9/L 11/05/2023 2:37 PM T [facility] Basophil Absolute 0.04 0.00 - 0.13 x10E9/L 11/05/2023 2:37 PM [facility] Blood BLOOD SPECIMEN / Unknown Lab Venipuncture / Unknown 11/05/2023 2:15 PM CDT 11/05/2023 2:32 PM CDT Linda Pennington MD LAB - HEMATOLO GY ORDERABLES [facility] [address] [place] [phone], [place] [phone] * (ABNORMAL) COMPREHENSIVE METABOLIC PANEL (11/05/2023 2:15 PM CDT) Only the most recent of14 resultswithin the time period is included. BUN 8 7 - 26 mg/dL 11/05/2023 3:00 PM [facility] Creatinine 0.59 0.56 - 0.96 mg/dL 11/05/2023 3:00 PM [facility] Sodium 139 136 - 145 mmol/L 11/05/2023 3:00 PM [facility] Potassium 3.8 3.5 - 4.5 mmol/L 11/05/2023 3:00 PM [facility] Chloride 108(H) 98 - 107 mmol/L 11/05/2023 3:00 PM [facility] CO2 23 22 - 29 mmol/L 11/05/2023 3:00 PM [facility] Glucose 97 70 - 115 mg/dL 11/05/2023 3:00 PM [facility] Calcium 9.5 8.4 - 10.2 mg/dL 11/05/2023 3:00 PM [facility] Protein Total 7.0 6.0 - 8.3 g/dL 11/05/2023 3:00 PM [facility] Albumin 4.0 3.4 - 5.0 g/dL 11/05/2023 3:00 PM [facility] Bilirubin Total 0.6 0.2 - 1.2 mg/dL 11/05/2023 3:00 PM [facility] Alkaline Phosphatase 73 40 - 150 U/L 11/05/2023 3:00 PM [facility] ALT 15 5 - 55 U/L 11/05/2023 3:00 PM [facility] AST 15 5 - 34 U/L 11/05/2023 3:00 PM [facility] Anion Gap 8 6 - 16 11/05/2023 3:00 PM [facility] BUN/Creatinine Ratio 14 7 - 23 11/05/2023 3:00 PM [facility] Osmolality Calculated 286 275 - 295 mOsm/kg 11/05/2023 3:00 PM [facility] Albumin/Globulin Ratio 1.3 1.1 - 2.3 11/05/2023 3:00 PM [facility] eGFR by CKD-EPI >90 >=90 mL/min/1.7 3 m2 11/05/2023 3:00 PM CDT [facility] Blood BLOOD SPECIMEN / Unknown Lab Venipuncture / Unknown 11/05/2023 2:15 PM CDT 11/05/2023 2:32 PM CDT Linda Pennington MD LAB - CHEMISTR Y ORDERABLES Performing Organization Address City/[facility]/ZIP Co de Phone Number [address] [address], [place] [phone] * CK BLOOD (11/05/2023 2:15 PM CDT) Only the most recent of10 resultswithin the time period is included. CK Total 99 30 - 200 U/L 11/05/2023 3:00 PM CDT [facility] Blood BLOOD SPECIMEN / Unknown Lab Venipuncture / Unknown 11/05/2023 2:15 PM CDT 11/05/2023 2:32 PM CDT Linda Pennington MD LAB - CHEMISTR Y ORDERABLES Performing Organization Address [facility]/ZIP Co de Phone Number [address] [address], [place] [phone] * CULTURE URINE REFLEXED III (06/10/2023 9:27 AM METEOROLOGICAL ENGINEER) Only the most recent of3 resultswithin the time period is included. Reflexive Urine Culture See Below [facility] Comment: NO CULTURE INDICATED Test Performed at: [facility] [phone] SIRIA MOFFETT MD 06/10/2023 9:27 AM METEOROLOGICAL ENGINEER 06/10/2023 9:28 AM METEOROLOGICAL ENGINEER Linda Pennington MD LAB - MICROBIO LOGY ORDERABLES Performing Organization Address City/[facility]/ZIP Co de Phone Number [address] [phone] * ALDOLASE (06/10/2023 9:27 AM METEOROLOGICAL ENGINEER) Only the most recent of8 resultswithin the time period is included. Pathologist [facility] Aldolase 3.2 < OR = 8.1 U/L [facility] Comment: Test Performed at: [facility] [address] [place] [address] SIRIA MOFFETT MD Blood BLOOD SPECIMEN / Unknown 06/10/2023 9:27 AM METEOROLOGICAL ENGINEER 06/10/2023 9:28 AM METEOROLOGICAL ENGINEER Linda Pennington MD LAB - CHEMISTR Y ORDERABLES Performing Organization Address City/[facility] Co de Phone Number [address] [address] * LDH BLOOD (06/10/2023 9:27 AM METEOROLOGICAL ENGINEER) Only the most recent of6 resultswithin the time period is included. Pathologist [facility] LD-Total 114 100 - 200 U/L [facility] Comment: Test Performed at: [facility] [phone] SIRIA MOFFETT MD Blood BLOOD SPECIMEN / Unknown 06/10/2023 9:27 AM METEOROLOGICAL ENGINEER 06/10/2023 9:28 AM METEOROLOGICAL ENGINEER Linda Pennington MD LAB - CHEMISTR Y ORDERABLES Performing Organization Address [facility] Co de Phone Number [address] [address] * CKMB (12/16/2022 1:13 PM CDT) Pathologist [facility] CK-MB (CK2) 1.2 0 - 5.0 ng/mL [facility] Comment: Test Performed at: [facility] [address] [place] [address] SIRIA MOFFETT MD 12/16/2022 1:13 PM CDT 12/16/2022 1:16 PM CDT Linda Pennington MD LAB - CHEMISTR Y ORDERABLES Performing Organization Address City/[facility]/ZIP Co de Phone Number [address] [address] * (ABNORMAL) MYOSITIS ANTIBODY PANEL COMPREHENSIVE (11/05/2022 3:44 PM CDT) Only the most recent of3 resultswithin the time period is included. SAE1 (SUMO activating enzyme) Ab Negative Negative 11/12/2022 7:11 PM CDT [facility] ([facility]) NXP2 (Nuclear matrix protein-2) Ab Low Positive(A ) Negative 11/12/2022 7:11 PM CDT [facility] ([facility]) Comment: Low positive reactivity to nuclear matrix protein (NXP2) detected. Strong clinical correlation is recommended. MDA5 (CADM-140) Ab Negative Negative 2022 7:11 PM CDT [facility] ([facility]) TIF-1 gamma (155 kDa) Ab Negative Negative 11/12/2022 7:11 PM CDT [facility] ([facility]) Myositis Panel Interpretive Data See Note 11/12/2022 7:11 PM CDT [facility] ([facility]) Comment: INTERPRETIVE INFORMATION: Extended Myositis Panel If present, myositis-specific antibodies (MSA) are specific for myositis, and may be useful in establishing diagnosis as well as prognosis. MSAs are generally regarded as mutually exclusive with rare exceptions; the occurrence of two or more MSAs should be carefully evaluated in the context of patient's clinical presentation. Myositis-associated antibodies (MAA) may be found in patients with CTD including overlap syndromes, and are generally not specific for myositis. The following table will help in identifying the association of any antibodies found as either MSAs or Rosa Maria. Antibody Specificity . . . . . . . . . . . . MSA . . . . MAA SSA 52 (Ro) (COURT) Antibody IgG . . . . . . . . . . . . . X SSA 60 (Ro) (COURT) Antibody IgG . . . . . . . . . . . . . X Patton/DATA COMPILER (COURT) Ab, IgG . . . . . . . . . . . . . . . . X Makayla-1 (histidyl-tRNA synthetase) Ab, IgG . . X PL-12 (alanyl-tRNA synthetase) Antibody . . X PL-7 (threonyl-tRNA synthetase) Antibody . . X EJ (glycyl-tRNA synthetase) Antibody . . . . X OJ (isoleucyl-tRNA synthetase) Antibody . . X SRP (Signal Recognition Particle) Ab . . . . X Ku Antibody . . . . . . . . . . . . . . . . . . . . . . X PM/SCL 100 Antibody, IgG . . . . . . . . . . . . . . . . X Fibrillarin (U3 DATA COMPILER) Ab, IgG . . . . . . . . . . . . . . X Mi-2 (nuclear helicase protein) Antibody . . X P155/140 Antibody . . . . . . . . . . . . . X TIF-1 gamma (155 kDa) Ab . . . . . . . . . . X SAE1 (SUMO activating enzyme) Ab . . . . . . X MDA5 (CADM-140) Ab . . . . . . . . . . . . X NXP2 (Nuclear matrix proten-2)Ab . . . . . . X This test was developed and its performance characteristics determined by [facility]. It has not been cleared or approved by the US Food and Drug Administration. This test was performed in a CLIA certified laboratory and is intended for clinical purposes. Mi-2 Antibody Negative Negative 11/12/2022 7:11 PM CDT [facility]) P155/140 Antibody Negative Negative 023 7:11 PM CDT [facility]) PL-12 Antibody Negative Negative 11/12/2022 7:11 PM CDT [facility]) PL-7 Antibody Negative Negative 11/12/2022 7:11 PM CDT [facility]) OJ Antibody Negative Negative 11/12/2022 7:11 PM CDT [facility]) EJ Antibody Negative Negative 11/12/2022 7:11 PM CDT [facility]) SRP Antibody Negative Negative 11/12/2022 7:11 PM CDT [facility] Makayla-1 Antibody IgG 7 0 - 40 AU/mL 11/12/2022 7:11 PM CDT [facility]) Comment: INTERPRETIVE INFORMATION: Makayla-1 Antibody, IgG 29 AU/mL or less.........Negative 30-40 AU/mL..............Equivocal 41 AU/mL or greater......Positive Presence of Makayla-1 (antihistidyl transfer RNA [t-RNA] synthetase) antibody is associated with polymyositis and may also be seen in patients with dermatomyositis. Makayla-1 antibody is associated with pulmonary involvement (interstitial lung disease), Raynaud phenomenon, arthritis, and garden machinery mechanic's hands (implicated in antisynthetase syndrome). KU Antibody Negative Negative 11/12/2022 7:11 PM CDT [facility] ([facility]) Patton/DATA COMPILER (COURT) Antibody IgG 2 0 - 19 Units 11/12/2022 7:11 [facility] ([facility]) Comment: INTERPRETIVE INFORMATION: Patton/DATA COMPILER (COURT) Antibody, IgG 19 Units or Less ............. Negative 20 to 39 Units ............... Weak Positive 40 to 80 Units ............... Moderate Positive 81 Units or greater .......... Strong Positive Patton/DATA COMPILER antibodies are frequently seen in patients with mixed connective tissue disease (MCTD) and are also associated with other systemic autoimmune rheumatic diseases (SARDs) such as systemic lupus erythematosus (SLE), systemic sclerosis, and myositis. Antibodies targeting the Patton/DATA COMPILER antigenic complex also recognize Patton antigens, therefore, the Patton antibody response must be considered when interpreting these results. PM/Scl 100 Antibody IgG Negative Negative 11/12/2022 7:11 PM CDT [facility] ([facility]) Comment: INTERPRETIVE INFORMATION: PM/Scl-100 Antibody, IgG by Immunoblot The presence of PM/Scl-100 IgG antibody along with a positive BENNETT IFA nucleolar pattern is associated with connective tissue diseases such as polymyositis (PM), dermatomyositis (DM), systemic sclerosis (SSc), and polymyositis/systemic sclerosis overlap syndrome. The clinical relevance of PM/Scl-100 IgG antibody with a negative BENNETT IFA nucleolar pattern is unknown. PM/Scl-100 is the main target epitope of the PM/Scl complex, although antibodies to other targets not detected by this assay may occur. This test was developed and its performance characteristics determined by [facility]. It has not been cleared or approved by the US Food and Drug Administration. This test was performed in a CLIA certified laboratory and is intended for clinical purposes. SS-A 52 Antibody 5 0 - 40 AU/mL 11/12/2022 7:11 PM [facility] ([facility]) Comment: INTERPRETIVE INFORMATION: SSA-52 (Ro52) (COURT) Antibody, IgG 29 AU/mL or Less ............. Negative 30 - 40 AU/mL ................ Equivocal 41 AU/mL or Greater .......... Positive SSA-52 (Ro52) and/or SSA-60 (Ro60) antibodies are associated with a diagnosis of Sjogren syndrome, systemic lupus erythematosus (SLE), and systemic sclerosis. SSA-52 antibody overlaps significantly with the major SSc-related antibodies. SSA-52 (Ro52) antibody occurs frequently in patients with inflammatory myopathies, often in the presence of interstitial lung disease. SS-A 60 Antibody 2 0 - 40 AU/mL 11/12/2022 7:11 PM [facility] ([facility]) Comment: REFERENCE INTERVAL: SSA-60 (Ro60) (COURT) Antibody, IgG 29 AU/mL or Less ............. Negative 30 - 40 AU/mL ................ Equivocal 41 AU/mL or Greater .......... Positive Fibrillarin (U3 DATA COMPILER) Antibody IgG Negative Negative 11/12/2022 7:11 PM [facility] ([facility]) Comment: Interpretive Information: Fibrillarin (U3 DATA COMPILER) Antibody, IgG The presence of fibrillarin (U3-DATA COMPILER) IgG antibodies in association with an BENNETT IFA nucleolar pattern is suggestive of systemic sclerosis (SSc). In SSc, these antibodies are associated with distinct clinical features, such as younger age at disease onset, frequent internal organ involvement (pulmonary hypertension, myositis and renal disease). Fibrillarin antibodies are detected more frequently in patients with SSc compared to other ethnic groups. Strong correlation with BENNETT IFA results is recommended. In a multi-ethnic cohort of SSc patients (n=98), U3-DATA COMPILER antibodies detected by immunoblot had an agreement of 98.9 percent with the gold standard immunoprecipitation (IP) assay. Approximately 71 percent (5/7) of the borderline U3-DATA COMPILER results with BENNETT nucleolar pattern in this cohort were IP negative. This test was developed and its performance characteristics determined by [facility]. It has not been cleared or approved by the US Food and Drug Administration. This test was performed in a CLIA certified laboratory and is intended for clinical purposes. Performed by [email or web address] [facility], [address] [place] [address] [email or web address], Jax Mitchell MD, PHD, Lab. Director Blood BLOOD SPECIMEN / Unknown Lab Venipuncture / Unknown 11/05/2022 3:44 PM CDT 11/05/2022 4:04 PM CDT Linda Pennington MD LAB - CHEMISTR Y ORDERABLES Performing Organization Address City/[facility]/ZIP Co de Phone Number [facility] ([facility]) [address] [place] [address] * CULTURE URINE REFLEXED II (06/17/2022 9:41 AM METEOROLOGICAL ENGINEER) Only the most recent of2 resultswithin the time period is included. Reflexive Urine Culture See Below [facility] Comment: CULTURE INDICATED - RESULTS TO FOLLOW Test Performed at: [address] [address] SIRIA MOFFETT MD 06/17/2022 9:41 AM METEOROLOGICAL ENGINEER 06/17/2022 9:42 AM METEOROLOGICAL ENGINEER Linda Pennington MD LAB - MICROBIO LOGY ORDERABLES [address] [address] * OCT (01/15/2022 9:53 AM CDT) Anatomical Region Laterality Modality Other 01/15/2022 9:53 AM CDT Christine Loera OD OPHTHALMOLOGY SERVIC ES ORDERABLES * CARDIAC EKG ORDER (12/20/2021 12:13 PM CDT) Narrative 12/20/2021 12:13 PM CDT Ordered by an unspecified provider. Scanned Document CARDIAC SERVICES ORD ERABLES * TROPONIN I (12/18/2021 8:05 PM CDT) Only the most recent of2 resultswithin the time period is included. Troponin I <0.010 <0.032 ng/mL 12/18/2021 8:49 PM CDT [facility] Blood BLOOD SPECIMEN / Unknown Venipuncture / Unknown 12/18/2021 8:05 PM CDT 12/18/2021 8:09 PM CDT Dmitriy Goff PA-C LAB - CHEMISTRY [place] [address] [address], [place] [phone] * XR CHEST PA AND LATERAL (12/18/2021 12:27 PM CDT) Anatomical Region Laterality Modality Chest Radiographic Shalini ging 12/18/2021 1:05 PM CDT Impressions 12/18/2021 1:22 PM CDT IMPRESSION: No acute cardiopulmonary process. > Dictated by Angelica Piper MD (resident in diagnostic radiology). IClaribel MD have personally reviewed and interpreted this examination/study. > Interpreting Provider: Claribel Paula MD on 12/18/2021 1:22 PM Narrative 12/18/2021 1:22 PM CDT EXAMINATION: XR CHEST 2VW 12/18/2021 12:28 PM HISTORY: R07.9: Chest pain, unspecified type COMPARISON: CT chest with contrast dated 12/31/2019 FINDINGS: There is no focal consolidation, pleural effusion, or pneumothorax. The cardiomediastinal silhouette is normal. The visible bony thorax is intact. Procedure Note Claribel Paula MD - 12/18/2021 EXAMINATION: XR CHEST 2VW 12/18/2021 12:28 PM HISTORY: R07.9: Chest pain, unspecified type COMPARISON: CT chest with contrast dated 12/31/2019 FINDINGS: There is no focal consolidation, pleural effusion, or pneumothorax. The cardiomediastinal silhouette is normal. The visible bony thorax isintact. IMPRESSION: No acute cardiopulmonary process. > Dictated by Angelica Piper MD (resident in diagnostic radiology). I, Claribel Paula MD have personally reviewed and interpreted this examination/study. > Interpreting Provider: Claribel Paula MD on 12/18/2021 1:22 PM Dmitriy Goff PA-C DIAGNOSTIC IMAGING O RDERABLES * SARS-COV-2 (COVID-19) RAPID (12/18/2021 12:11 PM CDT) COVID-19 PCR Not detected Not detected 12/19/19 1:01 PM CDT [facility] Microbiology SPECIMEN FROM NASOPHARYNGEAL STRUCTURE / Unknown Collection / Unknown 12/18/2021 12:11 PM CDT 12/18/2021 12:17 PM CDT Narrative [facility] - 12/18/2021 1:01 PM CDT The Cepheid Xpert Xpress SARS-COV-2 has been authorized by the Food and Drug Administration (FDA) under an Emergency Use Authorization (EUA). This test has been validated in accordance with the FDA's guidance document Policy for Diagnostic Testing in Laboratories Certified to perform High Complexity Testing under CLIA prior to Emergency Use Authorization for Coronavirus Disease-2019 during the Public Health Emergency issued on June 26, 2019. FDA independent review of this validation is pending. This test is only authorized for the duration of the time the declaration that circumstances exist justifying the authorization of emergency use of in vitro diagnostic tests for detection of SARS-COV-2 virus and/or diagnosis of COVID-19 infection under 564(b) (1) of the Act. 21 U.S.C. 360bbb-3 (b) (1), unless the authorization is terminated or revoked sooner. Fact Sheets for this EUA assay are available upon request. Dmitriy Goff PA-C LAB - MICROBIOLOGY O RDERABLES [facility] [address] [place] [address] [phone] * HCG BETA BLOOD QUANTITATIVE (12/18/2021 12:11 PM CDT) Beta-hCG Total Quantitative <3 mIU/mL 12/18/2021 1:03 PM CDT [facility] Comment: This assay is cleared for use in the early detection of only. It is not approved for any other uses such as tumor marker screening, tumor marker monitoring, etc. and should not be used for any other purposes. HCG Numeric Result Interpretation: Non- Females: < 5 mIU/mL Post-Menopausal Females: < 7 mIU/mL Blood BLOOD SPECIMEN / Unknown Venipuncture / Unknown 12/18/2021 12:11 PM CDT 12/18/2021 12:18 PM CDT Dmitriy Goff PA-C LAB - CHEMISTRY SHANKAR KATE [facility] [address] [place] [id number] [phone] * (ABNORMAL) URINALYSIS REFLEX TO MICROSCOPIC NO CULTURE (12/18/2021 12:04 PM CDT) Pathologist [facility] Color UA Yellow Straw, Yellow 12/18/2021 12:29 PM CDT [facility] Clarity UA Slt Cloudy(A) Clear 12/18/2021 12:29 PM CDT [facility] Specific [place] UA 1.008 1.005 - 1.030 12/18/2021 12:29 PM [facility] pH UA 8.0 5.0 - 8.0 pH 12/18/2021 12:29 PM CDT [facility] Protein UA Negative Negative 12/18/2021 12:29 PM CDT [facility] Glucose UA Negative Negative 12/18/2021 12:29 PM CDT [facility] Ketone UA Negative Negative 12/18/2021 12:29 PM [facility] [facility] Bilirubin UA Negative Negative 12/18/2021 12:29 PM T [facility] Blood UA 1+(A) Negative 12/18/2021 12:29 PM T [facility] Nitrite UA Negative Negative 12/18/2021 12:29 PM CDT [facility] Leukocyte Esterase Negative Negative 12/18/2021 12:29 PM CDT [facility] Urobilinogen UA Negative Negative mg/dL 12/18/2021 12:29 PM CDT [facility] RBC UA 0-2 None Seen, 0-2, 3-5 /HPF 12/18/2021 12:29 PM CDT [facility] WBC UA 0-5 None Seen, 0-5 /HPF 12/18/2021 12:29 PM CDT [facility] Squamous Epithelial Cells UA 6-10(A) None Seen, 0-2, 3-5 /HPF 12/18/2021 12:29 PM CDT [facility] Mucus UA 1+ /LPF 12/18/2021 12:29 PM CDT [facility] Urine URINE SPECIMEN OBTAINED BY CLEAN CATCH PROCEDURE / Unknown Collection / Unknown 12/18/2021 12:04 PM CDT 12/18/2021 12:08 PM CDT Narrative [facility] - 12/18/2021 12:29 PM CDT Dmitriy Goff PA-C LAB - URINALYSIS ORD ERABLES [facility] [address] [place] [id number], [place] [phone] * EKG 12-LEAD (12/18/2021 11:52 AM CDT) Ventricular Rate 71 BPM [facility] MUSE Atrial Rate 71 BPM [facility] MUSE P-R Interval 152 ms [facility] MUSE QRS Duration ms 72 ms [facility] MUSE Q-T Interval ms 396 ms [facility] MUSE QTC Calculation (Bezet) 430 ms [facility] MUSE Calculated P [place] 79 degrees [facility] MUSE Calculated R [place] 82 degrees [facility] MUSE Calculated T [place] 69 degrees [facility] MUSE Interpretation EKG NORMAL SINUS RHYTHM LOW VOLTAGE QRS BORDERLINE ECG NO PREVIOUS ECGS AVAILABLE Confirmed by Freedom Pineda ([id number]) on 12/18/2021 9:27:07 PM [facility] MUSE 12/18/2021 11:5 2 AM CDT 12/18/2021 9:27 PM CDT Dmitriy Goff PA-C ECG ORDERABLES [facility] MUSE * FL SWALLOWING FUNCTION STUDY (12/13/2021 3:08 PM CDT) Anatomical Region Laterality Modality Chest Radiographic Shalini ging 12/14/2021 9:52 AM CDT Narrative 12/14/2021 10:43 AM CDT PROCEDURE: FL SWALLOWING FUNCTION STUDY, DATE/TIME OF EXAM: 12/13/2021 4:02 PM, LOCATION [facility] INDICATION: R13.12: Oropharyngeal dysphagia COMPARISON: None. FLUOROSCOPY DOSE: 17 mGy Reference air kerma (ka,r). FLUOROSCOPY TIME: 3.05 minutes; Number of images: 1943 TECHNIQUE: Modified barium swallow fluoroscopy performed in conjunction with speech pathology staff. The speech pathologist administered varying thickness barium liquids and solids under direct Cine fluoroscopy. FINDINGS/IMPRESSION: Fluoroscopic assistance was provided for a modified barium swallow test performed by Speech Therapy. Please see the Speech Therapy report for details. Report dictated by Pietro Issa MD (resident in diagnostic radiology). Claribel Danielle MD have personally reviewed and interpreted this examination/study. > Interpreting Provider: Claribel Paula MD on 12/14/2021 10:43 AM Procedure Note Claribel Paula MD - 12/14/2021 PROCEDURE: FL SWALLOWING FUNCTION STUDY, DATE/TIME OF EXAM: 12/13/2021 4:02 PM, LOCATION [facility] INDICATION: R13.12: Oropharyngeal dysphagia COMPARISON: None. FLUOROSCOPY DOSE: 17 mGy Reference air kerma (ka,r). FLUOROSCOPY TIME: 3.05 minutes; Number of images: 1943 TECHNIQUE: Modified barium swallow fluoroscopy performed in conjunction with speech pathology staff. The speech pathologist administered varying thickness barium liquids and solids under direct Cine fluoroscopy. FINDINGS/IMPRESSION: Fluoroscopic assistance was provided for a modified barium swallow test performed by Speech Therapy. Please see the Speech Therapy report for details. Report dictated by Pietro Issa MD (resident in diagnostic radiology). Claribel Danielle MD have personally reviewed and interpreted this examination/study. > Interpreting Provider: Claribel Paula MD on 12/14/2021 10:43 AM Linda Pennington MD FLUOROSCOPY OR DERABLES * COMPLETE PFT W/WO BRONCHODILATOR (08/20/2021 4:37 PM CDT) Impressions Aime Almaguer MD - 08/20/2021 4:37 PM CDT [facility] DEPARTMENT OF PULMONARY, CRITICAL CARE, AND SLEEP MEDICINE PULMONARY FUNCTION TEST Please see technologist's comments mentioned in the report. INTERPRETATION: SPIROMETRY: FVC: normal FEV1: normal FEV1/FVC ratio is normal. (This data is based on the best response by the patient, including pre- bronchodilator and post-bronchodilator.) BRONCHODILATOR RESPONSE: There is no response to bronchodilator administration FLOW-VOLUME LOOPS: Normal flow-volume loops LUNG VOLUMES: Lung volumes by body plethysmography showed normal volumes DLCO: Unadjusted for Hb and COHb is Increased DLCO: Corrected for Hb and COHb is: Not able to perform AIRWAY RESISTANCE: The airway resistance is normal and the specific conductance is normal ARTERIAL BLOOD GAS ANALYSIS: Not performed IMPRESSION: Patient had difficulty performing the PFT maneuvers, however, the available data is interpreted below 1. Normal spirometry and lung volumes 2. Increased uncorrected DLCO. Please correlate clinically. In the right clinical context, this may indicate asthma. 3. No positive bronchodilator response, however this does not preclude the use of bronchodilators 4. There is no previous study available for comparison Sheila Juan M.D. Division of Pulmonary, Critical Care, & Sleep Medicine [facility] I have reviewed this study and agree with the interpretation by the Senior Peoplesoft Developer. Aime Almaguer M.D. Squeezer Operator of Internal Medicine Division of Pulmonary, Critical Care and Sleep Medicine [facility] Narrative Aime Almaguer MD - 08/20/2021 4:37 PM CDT Dalila Juan MD 08/24/2021 3:40 PM Salbador Choudhary MD RESPIRATORY THERAPY ORDERABLES * (ABNORMAL) MYOSITIS 11 ANTIBODY PNL (01/15/2021 12:43 PM CDT) Makayla-1 Antibody <11 <[address]-7 Antibody <11 <[address]-12 Antibody <11 <11 [facility] EJ Antibody <11 <11 [facility] OJ Antibody <11 <11 [facility] SRP Antibody <11 <11 [facility] AR-2 Alpha Antibody <11 <11 [facility] AR-2 Beta Antibody <11 <11 [facility] MDA-5 Antibody <11 <11 [facility] TIF-1Y Antibody <11 <11 [facility] NXP-2 Antibody 26(H) <11 [facility] Comment: Studies have reported that 50-80% of myositis patients have high-titer autoantibodies. Myositis- specific autoantibodies (MSAs) are highly selective, and are associated with particular clinical phenotypes within the myositis spectrum. The classical myositis-specific antibodies, which are often mutually exclusive, include the synthetase (Makayla-1, EJ, OJ, PL-7, PL-12) antibodies and Mi-2 and SRP antibodies. Makayla-1 antibody is observed in 21% of patients with polymyositis and in 11% of those with dermatomyositis. The signal recognition particle (SRP) antibodies are associated with severe disease onset and a worse prognosis. In addition, SRP antibodies are also highly associated with necrotizing myopathy. Detection of an SRP antibody thus suggests a need for more aggressive treatment. Autoantibodies to Mi-2 are detected in patients with dermatomyositis rash. The mammalian genome encodes two Mi-2 proteins, Mi-2 alpha and Mi-2 beta. They are structurally similar and no functional or cell type specific differentiation between Mi-2 alpha and Mi-2 beta has yet been made. MDA5 antibody, formerly known as [id number] antibody, has been identified in clinically amyopathic dermatomyositis (CADM) and rapidly progressive lung disease. Transcriptional intermediary factor 1-gamma (TIF-1 y), formerly known as p155/140 autoantibodies, is associated with malignancy in adults and has a sensitivity of 78% and a specificity of 89% for cancer. A separate p140 kDa target has recently been identified as nuclear matrix protein NXP-2. Eighty-three percent of adults with cancer-associated dermatomyositis test positive for either TIF-1 y or NXP-2 antibodies. TIF-1 y can be detected in 35% of children with juvenile dermatomyositis, but unlike in adults, it is not associated with cancer. NXP-2 is detected in 22% of children with juvenile dermatomyositis, and its presence is highly associated with disease severity and calcinosis. Classical myositis-specific antibodies are generally far less prevalent, so including both TIF-1 y and NXP-2 in the panel improves sensitivity for juvenile dermatomyositis over the classical myositis-specific antibodies alone. These tests were developed and their analytical performance characteristics have been determined by [employer]. They have not been cleared or approved by the FDA. These assays have been validated pursuant to the CLIA regulations and are used for clinical purposes. Test Performed at: [facility] [address] [id number] LUKE GOMEZ MD Blood BLOOD SPECIMEN / Unknown 01/15/2021 12:43 PM CDT 01/15/2021 12:44 PM CDT Linda Pennington MD LAB - SEROLOGY ORDERABLES [facility] [address] [place] [address] * Corneal Topography (01/15/2021 10:43 AM CDT) Anatomical Region Laterality Modality Other 01/15/2021 10:4 3 AM CDT Christine Loera OD OPHTHALMOLOGY SERVIC ES ORDERABLES * Visual Wallace (01/15/2021 9:46 AM CDT) Anatomical Region Laterality Modality Other 01/15/2021 9:46 AM CDT Christine Loera OD OPHTHALMOLOGY SERVIC ES ORDERABLES * OCT (01/15/2021 12:00 AM CDT) Anatomical Region Laterality Modality Other 01/15/2021 Christine Loera OD OPHTHALMOLOGY SERVIC ES ORDERABLES * NM BREATH TEST ACQUIRE ANALYZE (05/31/2020 11:11 AM METEOROLOGICAL ENGINEER) Anatomical Region Laterality Modality Nuclear Medicine 06/02/2020 12:4 2 PM METEOROLOGICAL ENGINEER Impressions 06/02/2020 4:17 PM METEOROLOGICAL ENGINEER Impression: Negative Urea Breath Test for H.pylori. This report was approved by Diallo Manuel on 06/02/2020 3:48 PM . Lolis, Dr. AJ SHER D.O. have personally reviewed and interpreted this examination/study. This report was electronically signed by AJ SHER D.O. on 06/02/2020 4:17 PM . Narrative 06/02/2020 4:17 PM METEOROLOGICAL ENGINEER PROCEDURE: Urea Breath Test- C-14. HISTORY: 39-year-old female with past medical history pertinent for weight loss and nonspecific abdominal pain. This study was done to look for possible Helicobacter pylori infection. Patient's BMI 23.43 kg/m2. AGENT: 1 uCi of carbon-14 labeled urea, capsule PO. FINDINGS: Ten minutes after ingestion of capsule containing 1 uCi of carbon-14 labeled urea, the patient's breath samples were collected and the sample was sent to [facility]. These test results are reported upon receiving from outside laboratory. Results are reported as disintegrations per minute (DPM): Positive = +200 DPM. Negative = 0-49 DPM. Indeterminate = 50-199 DPM. RESULT: 30; DPM. Procedure Note Aj Sher, DO - 06/02/2020 PROCEDURE: Urea Breath Test- C-14. HISTORY: 39-year-old female with past medical history pertinent forweight loss and nonspecific abdominal pain. This study was done to look for possible Helicobacter pylori infection. Patient's BMI 23.43 kg/m2. AGENT: 1 uCi of carbon-14 labeled urea, capsule PO. FINDINGS: Ten minutes after ingestion of capsule containing 1 uCi of carbon-14 labeled urea, the patient's breath samples were collected and the sample was sent to [facility]. These test results are reported upon receiving from outside laboratory. Results are reported as disintegrations per minute (DPM): Positive = +200 DPM. Negative = 0-49 DPM. Indeterminate = 50-199 DPM. RESULT: 30; DPM. Impression: Negative Urea Breath Test for H.pylori. This report was approved by Diallo Manuel on 06/02/2020 3:48 PM . I, Dr. AJ SHER D.O. have personally reviewed and interpreted this examination/study. This report was electronically signed by AJ SHER D.O. on06/02/2020 4:17 PM . uJly Mendieta MD NM ORDERABLES * PATHOLOGY TISSUE (04/04/2020 12:19 PM [facility]) Case Report Surgical Pathology Report Case: [id number] Authorizing Provider: July Mendieta MD Collected: 04/04/2020 12:19 PM Ordering Location: [facility] ENDOSCOPY Received: 04/04/2020 01:20 PM Pathologist: Pennie Heard MD Specimen: Gastric, random gastric biopsies 04/05/2020 1:34 PM [facility] Final Diagnosis Stomach, random, biopsy (A): - Chronic active gastritis with H. pylori organisms 04/05/2020 1:34 PM [facility] Microscopic Description and Comment Microscopic examination substantiates the final diagnosis. 04/05/2020 1:34 PM [facility] Clinical History The patient is a 39 year old woman who presented with weight loss. Operative procedure/findings: EGD - normal stomach, biopsied. 04/05/2020 1:34 PM [facility] Gross Description The requisition and specimen(s) are labeled with the patient's name, Jeanie Collado. Received in formalin, specimen A , are 2 yellow-collazo tissue fragments measuring 0.3 x 0.1 x 0.1 cm and 0.4 x 0.2 x 0.1 cm. Specimen is submitted in toto in cassette A1. KK 04/05/2020 1:34 PM [facility] Disclaimer The performance characteristics of all immunohistochemical and indirect immunofluorescence stains (if any) cited in this report were determined by the Histopathology Laboratory of [facility]. Some of these tests were developed by our own laboratory and have not been cleared or approved by the US Food and Drug Administration. The FDA does not require this test to go through premarket FDA review. These tests are used for clinical purposes. They should not be regarded as investigational or for research. This laboratory is certified under the Clinical Laboratory Improvement Amendments (CLIA) as qualified to perform high complexity clinical laboratory testing. This case has been personally reviewed and interpreted by the attending (teaching) pathologist. 04/05/2020 1:34 PM METEOROLOGICAL ENGINEER [facility] Embedded Images 04/05/2020 1:34 PM METEOROLOGICAL ENGINEER [facility] Biopsy, NOS GASTRIC CONTENTS SPECIMEN / Unknown 04/04/2020 12:19 PM METEOROLOGICAL ENGINEER 04/04/2020 1:20 PM METEOROLOGICAL ENGINEER Comment:Pre-op diagnosis: Dermatomyositis [M33.90] Weight loss [R63.4] Abdominal pain, unspecified abdominal location [R10.9] July Mendieta MD LAB - PATHOLOGY/CY TOLOGY ORDERABLES [facility] [address] [phone] * ENDOSCOPY, COLON, DIAGNOSTIC (04/04/2020 12:03 PM METEOROLOGICAL ENGINEER) Report Endoscopy POC Endoscopy Department Report _ Patient Name: Jeanie Collado Procedure Date: 04/04/2020 12:03 PM Date of : 1980 Classification: Outpatient Gender: Female Ethnicity: or Race: White _ Providers: July Mendieta MD, Denys Jones (Fellow) Referring MD: Tasha Perez (Referring MD) Procedure: Colonoscopy Indications: Weight loss Medications: Monitored Anesthesia Care Description of Procedure: Pre-Anesthesia Assessment: - Prior to the procedure, a History and Physical was performed, and patient medications and allergies were reviewed. The patient's tolerance of previous anesthesia was also reviewed. The risks and benefits of the procedure and the sedation options and risks were discussed with the patient. All questions were answered, and informed consent was obtained. Prior Anticoagulants: The patient has taken no previous anticoagulant or antiplatelet agents. ASA Grade Assessment: I - A normal, healthy patient. After reviewing the risks and benefits, the patient was deemed in satisfactory condition to undergo the procedure. After I obtained informed consent, the scope was passed under direct vision. Throughout the procedure, the patient's blood pressure, pulse, and oxygen saturations were monitored continuously. The PCF-H190DL was introduced through the anus and advanced to the terminal ileum. The colonoscopy was performed without difficulty. The patient tolerated the procedure well. The quality of the bowel preparation was excellent. The terminal ileum, ileocecal valve, appendiceal orifice, and rectum were photographed. Findings: The perianal and digital rectal examinations were normal. The colon (entire examined portion) appeared normal. The terminal ileum appeared normal. The retroflexed view of the distal rectum and anal verge was normal and showed no anal or rectal abnormalities. Estimated Blood Loss: Estimated blood loss: none. Complications: No immediate complications. Impression: - The entire examined colon is normal. - The examined portion of the ileum was normal. - The distal rectum and anal verge are normal on retroflexion view. - No specimens collected. Recommendation: - Patient has a contact number available for emergencies. The signs and symptoms of potential delayed complications were discussed with the patient. Return to normal activities tomorrow. Written discharge instructions were provided to the patient. - Resume previous diet. - Continue present medications. - Repeat colonoscopy in 10 years for screening purposes. - Return to referring physician as previously scheduled. Attending Participation: I was present and participated during the entire procedure, including non-aguilar portions. Procedure Code(s): --- Professional --- 48333, Colonoscopy, flexible; diagnostic, including collection of specimen(s) by brushing or washing, when performed (separate procedure) Diagnosis Code(s): --- Professional --- R63.4, Abnormal weight loss CPT copyright 2019 [employer]. All rights reserved. The codes documented in this report are preliminary and upon medical biller/coder review may be revised to meet current compliance requirements. July Mendieta MD 04/04/2020 12:59:14 PM Note Initiated On: 04/04/2020 12:03 PM Number of Addenda: 0 [facility] [address] [place], [place] [id number] [place] [address] [place] 04/04/2020 12:0 3 PM METEOROLOGICAL ENGINEER Fermin Jones MD GI PRO CEDURE ORDERABLES [facility] PROVATION * EGD (04/04/2020 11:57 AM METEOROLOGICAL ENGINEER) Report Endoscopy POC Endoscopy Department Report __ _ Patient Name: Jeanie Collado Procedure Date: 04/04/2020 11:57 AM Date of : 1980 Classification: Outpatient Gender: Female Ethnicity: or Race: White __ _ Providers: July Mendieta MD, Denys Jones (Fellow) Referring MD: Tasha Perez (Referring MD) Procedure: Upper GI endoscopy Indications: Weight loss Medications: Monitored Anesthesia Care Description of Procedure: Pre-Anesthesia Assessment: - Prior to the procedure, a History and Physical was performed, and patient medications and allergies were reviewed. The patient's tolerance of previous anesthesia was also reviewed. The risks and benefits of the procedure and the sedation options and risks were discussed with the patient. All questions were answered, and informed consent was obtained. Prior Anticoagulants: The patient has taken no previous anticoagulant or antiplatelet agents. ASA Grade Assessment: I - A normal, healthy patient. After reviewing the risks and benefits, the patient was deemed in satisfactory condition to undergo the procedure. - Prior Aspirin/ NSAID therapy: The patient has taken no previous aspirin or NSAID medications. After obtaining informed consent, the endoscope was passed under direct vision. Throughout the procedure, the patient's blood pressure, pulse, and oxygen saturations were monitored continuously. The GIF-H190 was introduced through the mouth, and advanced to the second part of duodenum. The upper GI endoscopy was accomplished without difficulty. The patient tolerated the procedure well. Findings: Esophagogastric landmarks were identified: the Z-line was found at 39 cm, the gastroesophageal junction was found at 39 cm and the site of hiatal narrowing was found at 39 cm from the incisors. The examined esophagus was normal. The entire examined stomach was normal. Biopsies were taken with a cold forceps for histology. The cardia and gastric fundus were normal on retroflexion. The examined duodenum was normal. Estimated Blood Loss: Estimated blood loss was minimal. Complications: No immediate complications. Impression: - Esophagogastric landmarks identified. - Normal esophagus. - Normal stomach. Biopsied. - Normal examined duodenum. Recommendation: - Patient has a contact number available for emergencies. The signs and symptoms of potential delayed complications were discussed with the patient. Return to normal activities tomorrow. Written discharge instructions were provided to the patient. - Resume previous diet. - Continue present medications. - Await pathology results. - Proceed with colonoscopy. Attending Participation: I was present and participated during the entire procedure, including non-aguilar portions. Procedure Code(s): --- Professional --- 53502, Esophagogastroduode noscopy, flexible, transoral; with biopsy, single or multiple Diagnosis Code(s): --- Professional --- R63.4, Abnormal weight loss CPT copyright 2019 [employer]. All rights reserved. The codes documented in this report are preliminary and upon medical biller/coder review may be revised to meet current compliance requirements. ___ July Mendieta MD 04/04/2020 12:58:42 PM Note Initiated On: 04/04/2020 11:57 AM Number of Addenda: [address] [place] 04/04/2020 11:5 7 AM METEOROLOGICAL ENGINEER Fermin Jones MD GI PRO CEDURE ORDERABLES Performing Organization Address [facility]/ZIP Co de Phone Number [facility] PROVATION * HCG URINE QUALITATIVE - POCT (IP) INTERFACED (04/04/2020 11:14 AM METEOROLOGICAL ENGINEER) HCG Qual Urine Negative Negative 04/04/2020 11:21 AM METEOROLOGICAL ENGINEER [facility] Urine URINE / Unknown 04/04/2020 1 1:14 AM METEOROLOGICAL ENGINEER 04/04/2020 11:21 AM METEOROLOGICAL ENGINEER July Mendieta MD LAB - POINT OF CAR E ORDERABLES Performing Organization Address [facility] Co de Phone Number [address] [address], [place] [phone] * HCG URINE QUAL POCT NOTIFICATION (04/04/2020 11:03 AM METEOROLOGICAL ENGINEER) Comment Notification Label Only - See Separate Report 04/04/2020 12:30 PM METEOROLOGICAL ENGINEER [facility] Urine URINE / Unknown 04/04/2020 1 1:03 AM METEOROLOGICAL ENGINEER 04/04/2020 11:04 AM METEOROLOGICAL ENGINEER July Mendieta MD LAB - URINALYSIS O RDERABLES Performing Organization Address [facility]/ZIP Co de Phone Number [address] [address], [place] [phone] * (ABNORMAL) URINALYSIS W/MICROSCOPIC NO CULTURE (01/31/2020 12:23 PM CDT) Only the most recent of2 resultswithin the time period is included. Color UA Yellow Straw, Yellow, Colorless 01/31/2020 12:46 PM CDT [facility] Clarity UA Clear Clear, Slt Cloudy 01/31/2020 12:46 PM CDT [facility] Specific [place] UA 1.008 1.005 - 1.030 01/31/2020 12:46 PM [facility] pH UA 6.0 5.0 - 8.0 pH 01/31/2020 12:46 PM [facility] Protein UA Negative Negative mg/dL 01/31/2020 12:46 PM [facility] Glucose UA Negative Negative mg/dL 01/31/2020 12:46 PM [facility] Ketone UA Negative Negative mg/dL 01/31/2020 12:46 PM [facility] Bilirubin UA Negative Negative mg/dL 01/31/2020 12:46 PM [facility] Blood UA 3+(A) Negative 01/31/2020 12:46 PM [facility] Nitrite UA Negative Negative 01/31/2020 12:46 PM [facility] Leukocyte Esterase 1+(A) Negative 01/31/2020 12:46 PM [facility] Urobilinogen UA Negative Negative mg/dL 01/31/2020 12:46 PM [facility] RBC UA 51-100(A) None Seen, 0-2, 3-5 /HPF 01/31/2020 12:46 PM [facility] WBC UA 21-50(A) None Seen, 0-5 /HPF 01/31/2020 12:46 PM [facility] Squamous Epithelial Cells UA 3-5(A) None Seen, 0-2 /HPF 01/31/2020 12:46 PM [facility] Urine URINE SPECIMEN OBTAINED BY CLEAN CATCH PROCEDURE / Unknown Collection / Unknown 01/31/2020 12:23 PM CDT 01/31/2020 12:30 PM CDT Narrative [facility] - 01/31/2020 12:46 PM CDT M Erlinda Jo MD LAB - URINALYSIS ORD ERABLES [facility] [address] [place] [id number], [place] [phone] * TSH (01/31/2020 12:22 PM CDT) TSH 1.586 0.350 - 4.940 uIU/mL 01/31/2020 1:15 PM [facility] Blood BLOOD SPECIMEN / Unknown Lab Venipuncture / Unknown 01/31/2020 12:22 PM CDT 01/31/2020 12:31 PM CDT Neena Jo MD LAB - CHEMISTRY SHANKAR KATE Performing Organization Address City/[facility]/ZIP Co de Phone Number [address] [address], [place] [phone] * T4 FREE (01/31/2020 12:22 PM CDT) T4 Free 1.0 0.7 - 1.5 ng/dL 01/31/2020 1:15 PM CDT [facility] Blood BLOOD SPECIMEN / Unknown Lab Venipuncture / Unknown 01/31/2020 12:22 PM CDT 01/31/2020 12:31 PM CDT Neena Jo MD LAB - CHEMISTRY SHANKAR KATE Performing Organization Address City/[facility]/ZIP Co de Phone Number [address] [address], [place] [phone] * OCT (01/10/2020 7:25 AM CDT) Anatomical Region Laterality Modality Other 01/10/2020 7:25 AM CDT Christine Loera OD OPHTHALMOLOGY SERVIC ES ORDERABLES * CT CHEST ABDOMEN PELVIS W CONT (12/31/2019 11:49 AM CDT) Anatomical Region Laterality Modality Chest, Abdomen, Pelvis Computed Tomography 12/31/2019 1:34 PM CDT Impressions 12/31/2019 5:06 PM CDT IMPRESSION: 1. Uterine cervix appears thickened and hypoattenuating. Gynecological evaluation recommended. Dictated by Anuel Hodges MD (resident in diagnostic radiology). I, Dr. FRANSICO NASH have personally reviewed and interpreted this examination/study. This report was electronically signed by FRANSICO NASH on 12/31/2019 5:06 PM . Narrative 12/31/2019 5:06 PM CDT EXAMINATION: Computed tomography (CT) of the chest, abdomen, and pelvis with contrast HISTORY: M33.90: Dermatomyositis TECHNIQUE: CT of the chest, abdomen, and pelvis was performed after the uneventful administration of 100 mL of Isovue 370 intravenous contrast according to standard protocol. FINDINGS: No prior study is available for comparison at the time of this dictation. Chest: The aorta and main pulmonary artery are normal in course and caliber. The heart size is normal. No pericardial effusion is present. No mediastinal, hilar, supraclavicular, or axillary lymphadenopathy is seen. The thyroid enhances homogenously. The lungs are clear of focal consolidation. No pleural effusion or focal pleural thickening is identified. There is no evidence of pneumothorax. No suspicious pulmonary nodule is identified. The trachea is patent and free of intraluminal debris. Abdomen/pelvis: The liver enhances homogenously. Multiple gallstones are seen in the gallbladder. Otherwise the gallbladder is normal without evidence of wall thickening or pericholecystic fluid. The intrahepatic and extrahepatic bile ducts are nondilated. The spleen enhances homogenously without focal lesion. The pancreas and adrenal glands are normal. The kidneys enhance symmetrically. There is no evidence of renal calculus or hydronephrosis. The esophagus and stomach appear normal. The small bowel and colon are normal in caliber without evidence of wall thickening or obstruction. The appendix appears normal without appendicolith or surrounding inflammatory changes. No free air or free fluid is identified within the abdomen. There is no abdominal lymphadenopathy. The urinary bladder is distended with fluid and appears normal. The cervix appears thickened and hypoattenuating. The uterine fundus appears normal with small fluid in the endometrial canal. No free fluid is seen within the pelvis. There is no pelvic lymphadenopathy. Bone windows demonstrate no suspicious lytic or blastic lesions. The visible osseous structures are intact. Procedure Note Fransico Nash MD - 12/31/2019 EXAMINATION: Computed tomography (CT) of the chest, abdomen, and pelvis with contrast HISTORY: M33.90: Dermatomyositis TECHNIQUE: CT of the chest, abdomen, and pelvis was performed after the uneventful administration of 100 mL of Isovue 370 intravenous contrast according to standard protocol. FINDINGS: No prior study is available for comparison at the time of this dictation. Chest: The aorta and main pulmonary artery are normal in course and caliber. The heart size is normal. No pericardial effusion is present. No mediastinal, hilar, supraclavicular, or axillary lymphadenopathy isseen. The thyroid enhances homogenously. The lungs are clear of focal consolidation. No pleural effusion or focal pleural thickening is identified. There is no evidence of pneumothorax.No suspicious pulmonary nodule is identified. The trachea is patent andfree of intraluminal debris. Abdomen/pelvis: The liver enhances homogenously. Multiple gallstones are seen in the gallbladder. Otherwise the gallbladder is normal without evidence ofwall thickening or pericholecystic fluid. The intrahepatic and extrahepatic bile ducts are nondilated. The spleen enhances homogenously withoutfocal lesion. The pancreas and adrenal glands are normal. The kidneys enhance symmetrically. There is no evidence of renal calculus or hydronephrosis. The esophagus and stomach appear normal. The small bowel and colon are normal in caliber without evidence of wall thickening or obstruction.The appendix appears normal without appendicolith or surroundinginflammatory changes. No free air or free fluid is identified within the abdomen.There is no abdominal lymphadenopathy. The urinary bladder is distended with fluid and appears normal. Thecervix appears thickened and hypoattenuating. The uterine fundus appears normal with small fluid in the endometrial canal. No free fluid is seen within the pelvis. There is no pelvic lymphadenopathy. Bone windows demonstrate no suspicious lytic or blastic lesions. The visible osseous structures are intact. IMPRESSION: 1. Uterine cervix appears thickened and hypoattenuating. Gynecological evaluation recommended. Dictated by Anuel Hodges MD (resident in diagnostic radiology). I, Dr. FRANSICO NASH have personally reviewed and interpreted this examination/study. This report was electronically signed by FRANSICO NASH on 12/31/2019 5:06 PM. Linwood Valles MD CT ORDERABLES * CREATININE - POCT INTERFACED (12/31/2019 11:40 AM CDT) Creatinine POCT 0.41 0.30 - 1.30 mg/dL 12/31/2019 11:58 AM CDT [facility] eGFR >60 >60 mL/min/1.7 3 m2 12/31/2019 11:58 AM CDT [facility] Blood BLOOD SPECIMEN / Unknown 12/31/2019 11:40 AM CDT 12/31/2019 11:58 AM CDT Linwood Valles MD LAB - POINT OF CARE ORDERABLES [address] [place] [address], [place] [phone] * XR KNEE RIGHT 2VW OR LESS (12/09/2019 4:16 PM CDT) Anatomical Region Laterality Modality Lower Extremity Radiographic Shalini ging 12/10/2019 7:14 AM CDT Impressions 12/10/2019 7:15 AM CDT IMPRESSION: Normal bilateral hand and knee radiographs. This report was electronically signed by HAKEEM HANLEY MD on 12/10/2019 7:15 AM . Narrative 12/10/2019 7:15 AM CDT Exam: 1. XR HAND RIGHT 2VW 2. XR KNEE RIGHT 2VW 3.XR KNEE LEFT 2VW 4.XR HAND LEFT 2VW History: M33.90: Dermatomyositis M25.561: Right knee pain, unspecified chronicity M25.50: Polyarthralgia R53.83: Other fatigue M79.10: Myalgia Comparison: None. Findings: Right hand: No fracture or dislocation is present. The joint spaces are normal. No erosions are seen. Bone density appears normal. The soft tissues are normal. Left hand: No fracture or dislocation is present. The joint spaces are normal. No erosions are seen. Bone density appears normal. The soft tissues are normal. Right knee: No acute fracture or dislocation is present. No erosions are seen. The joint spaces are normal. There is no effusion. Left knee: No acute fracture or dislocation is present. No erosions are seen. The joint spaces are normal. There is no effusion. Procedure Note Hakeem Hanley MD - 12/10/2019 Exam: 1. XR HAND RIGHT 2VW 2. XR KNEE RIGHT 2VW 3.XR KNEE LEFT 2VW 4.XR HAND LEFT 2VW History: M33.90: Dermatomyositis M25.561: Right knee pain, unspecified chronicity M25.50: Polyarthralgia R53.83: Other fatigue M79.10: Myalgia Comparison: None. Findings: Right hand: No fracture or dislocation is present. The joint spaces are normal. No erosions are seen. Bone density appears normal. The soft tissues are normal. Left hand: No fracture or dislocation is present. The joint spaces are normal. No erosions are seen. Bone density appears normal. The soft tissues are normal. Right knee: No acute fracture or dislocation is present. No erosions are seen. The joint spaces are normal. There is no effusion. Left knee: No acute fracture or dislocation is present. No erosions are seen. The joint spaces are normal. There is no effusion. IMPRESSION: Normal bilateral hand and knee radiographs. This report was electronically signed by HAKEEM HANLEY MD on12/10/2019 7:15 AM . Linda Pennington MD DIAGNOSTIC SHALINI GING ORDERABLES * XR KNEE LEFT 2VW OR LESS (12/09/2019 4:16 PM CDT) Anatomical Region Laterality Modality Lower Extremity Radiographic Shalini ging 12/10/2019 7:14 AM CDT Impressions 12/10/2019 7:15 AM CDT IMPRESSION: Normal bilateral hand and knee radiographs. This report was electronically signed by HAKEEM HANLEY MD on 12/10/2019 7:15 AM . Narrative 12/10/2019 7:15 AM CDT Exam: 1. XR HAND RIGHT 2VW 2. XR KNEE RIGHT 2VW 3.XR KNEE LEFT 2VW 4.XR HAND LEFT 2VW History: M33.90: Dermatomyositis M25.561: Right knee pain, unspecified chronicity M25.50: Polyarthralgia R53.83: Other fatigue M79.10: Myalgia Comparison: None. Findings: Right hand: No fracture or dislocation is present. The joint spaces are normal. No erosions are seen. Bone density appears normal. The soft tissues are normal. Left hand: No fracture or dislocation is present. The joint spaces are normal. No erosions are seen. Bone density appears normal. The soft tissues are normal. Right knee: No acute fracture or dislocation is present. No erosions are seen. The joint spaces are normal. There is no effusion. Left knee: No acute fracture or dislocation is present. No erosions are seen. The joint spaces are normal. There is no effusion. Procedure Note Hakeem Hanley MD - 12/10/2019 Exam: 1. XR HAND RIGHT 2VW 2. XR KNEE RIGHT 2VW 3.XR KNEE LEFT 2VW 4.XR HAND LEFT 2VW History: M33.90: Dermatomyositis M25.561: Right knee pain, unspecified chronicity M25.50: Polyarthralgia R53.83: Other fatigue M79.10: Myalgia Comparison: None. Findings: Right hand: No fracture or dislocation is present. The joint spaces are normal. No erosions are seen. Bone density appears normal. The soft tissues are normal. Left hand: No fracture or dislocation is present. The joint spaces are normal. No erosions are seen. Bone density appears normal. The soft tissues are normal. Right knee: No acute fracture or dislocation is present. No erosions are seen. The joint spaces are normal. There is no effusion. Left knee: No acute fracture or dislocation is present. No erosions are seen. The joint spaces are normal. There is no effusion. IMPRESSION: Normal bilateral hand and knee radiographs. This report was electronically signed by HAKEEM HANLEY MD on12/10/2019 7:15 AM . Linda Pennington MD DIAGNOSTIC SHALINI GING ORDERABLES * XR HAND RIGHT 2VW (12/09/2019 4:16 PM CDT) Anatomical Region Laterality Modality Wrist / Hand Radiographic Shalini ging 12/10/2019 7:14 AM CDT Impressions 12/10/2019 7:15 AM CDT IMPRESSION: Normal bilateral hand and knee radiographs. This report was electronically signed by HAKEEM HANLEY MD on 12/10/2019 7:15 AM . Narrative 12/10/2019 7:15 AM CDT Exam: 1. XR HAND RIGHT 2VW 2. XR KNEE RIGHT 2VW 3.XR KNEE LEFT 2VW 4.XR HAND LEFT 2VW History: M33.90: Dermatomyositis M25.561: Right knee pain, unspecified chronicity M25.50: Polyarthralgia R53.83: Other fatigue M79.10: Myalgia Comparison: None. Findings: Right hand: No fracture or dislocation is present. The joint spaces are normal. No erosions are seen. Bone density appears normal. The soft tissues are normal. Left hand: No fracture or dislocation is present. The joint spaces are normal. No erosions are seen. Bone density appears normal. The soft tissues are normal. Right knee: No acute fracture or dislocation is present. No erosions are seen. The joint spaces are normal. There is no effusion. Left knee: No acute fracture or dislocation is present. No erosions are seen. The joint spaces are normal. There is no effusion. Procedure Note Hakeem Hanley MD - 12/10/2019 Exam: 1. XR HAND RIGHT 2VW 2. XR KNEE RIGHT 2VW 3.XR KNEE LEFT 2VW 4.XR HAND LEFT 2VW History: M33.90: Dermatomyositis M25.561: Right knee pain, unspecified chronicity M25.50: Polyarthralgia R53.83: Other fatigue M79.10: Myalgia Comparison: None. Findings: Right hand: No fracture or dislocation is present. The joint spaces are normal. No erosions are seen. Bone density appears normal. The soft tissues are normal. Left hand: No fracture or dislocation is present. The joint spaces are normal. No erosions are seen. Bone density appears normal. The soft tissues are normal. Right knee: No acute fracture or dislocation is present. No erosions are seen. The joint spaces are normal. There is no effusion. Left knee: No acute fracture or dislocation is present. No erosions are seen. The joint spaces are normal. There is no effusion. IMPRESSION: Normal bilateral hand and knee radiographs. This report was electronically signed by HAKEEM HANLEY MD on12/10/2019 7:15 AM . Linda Pennington MD DIAGNOSTIC SHALINI GING ORDERABLES * XR HAND LEFT 2VW (12/09/2019 4:16 PM CDT) Anatomical Region Laterality Modality Wrist / Hand Radiographic Shalini ging 12/10/2019 7:14 AM CDT Impressions 12/10/2019 7:15 AM CDT IMPRESSION: Normal bilateral hand and knee radiographs. This report was electronically signed by HAKEEM HANLEY MD on 12/10/2019 7:15 AM . Narrative 12/10/2019 7:15 AM CDT Exam: 1. XR HAND RIGHT 2VW 2. XR KNEE RIGHT 2VW 3.XR KNEE LEFT 2VW 4.XR HAND LEFT 2VW History: M33.90: Dermatomyositis M25.561: Right knee pain, unspecified chronicity M25.50: Polyarthralgia R53.83: Other fatigue M79.10: Myalgia Comparison: None. Findings: Right hand: No fracture or dislocation is present. The joint spaces are normal. No erosions are seen. Bone density appears normal. The soft tissues are normal. Left hand: No fracture or dislocation is present. The joint spaces are normal. No erosions are seen. Bone density appears normal. The soft tissues are normal. Right knee: No acute fracture or dislocation is present. No erosions are seen. The joint spaces are normal. There is no effusion. Left knee: No acute fracture or dislocation is present. No erosions are seen. The joint spaces are normal. There is no effusion. Procedure Note Hakeem Hanley MD - 12/10/2019 Exam: 1. XR HAND RIGHT 2VW 2. XR KNEE RIGHT 2VW 3.XR KNEE LEFT 2VW 4.XR HAND LEFT 2VW History: M33.90: Dermatomyositis M25.561: Right knee pain, unspecified chronicity M25.50: Polyarthralgia R53.83: Other fatigue M79.10: Myalgia Comparison: None. Findings: Right hand: No fracture or dislocation is present. The joint spaces are normal. No erosions are seen. Bone density appears normal. The soft tissues are normal. Left hand: No fracture or dislocation is present. The joint spaces are normal. No erosions are seen. Bone density appears normal. The soft tissues are normal. Right knee: No acute fracture or dislocation is present. No erosions are seen. The joint spaces are normal. There is no effusion. Left knee: No acute fracture or dislocation is present. No erosions are seen. The joint spaces are normal. There is no effusion. IMPRESSION: Normal bilateral hand and knee radiographs. This report was electronically signed by HAKEEM HANLEY MD on12/10/2019 7:15 AM . Linda Pennington MD DIAGNOSTIC SHALINI GING ORDERABLES * VON WILLEBRAND ANTIGEN (12/09/2019 4:04 PM CDT) Pathologist [facility] [place] von Willebrand Factor Antigen 104 50 - 280 U/dL 12/09/2019 4:48 PM CDT [facility] Comment: Biologic population variability within the Von Willebrand Factor Antigen reference range is strongly correlated with ABO blood group phenotype. Blood group specific ranges are as follows: BLOOD TYPE O: vWF Antigen = 50-170 BLOOD TYPE A: vWF Antigen = 60-260 BLOOD TYPE B AND AB COMBINED: vWF Antigen = 90-280 Blood BLOOD SPECIMEN / Unknown Lab Venipuncture / Unknown 12/09/2019 4:04 PM CDT 12/09/2019 4:16 PM CDT Linda Pennington MD LAB - COAGULAT ION ORDERABLES Performing Organization Address City/State/[facility] Co de Phone Number [address] [address] [phone] * SCLERODERMA COMPREHENSIVE AB PANEL (11/16/2019 9:28 AM CDT) Pathologist [facility] [place] BENNETT HEp-2 IgG <1:80 <1:80 11/19/2019 7:42 AM CDT [email or web address] ([facility]) BENNETT Interpretive Comment See Note 11/19/2019 7:42 AM CDT [facility] ([facility]) Comment: Antinuclear antibodies by IFA negative for homogeneous, speckled, nucleolar, centromere, and nuclear dots patterns. No cytoplasmic pattern observed. INTERPRETIVE INFORMATION: BENNETT Interpretive Comment Presence of antinuclear antibodies (BENNETT) is a hallmark feature of systemic autoimmune rheumatic diseases (SARD). BENNETT lacks diagnostic specificity and is associated with a variety of diseases (cancers, autoimmune, infectious, and inflammatory conditions) and may also occur in healthy individuals in varying prevalence. The lack of diagnostic specificity requires confirmation of positive BENNETT by more-specific serologic tests. BENNETT (nuclear reactivity) positive patterns reported include centromere, homogeneous, nuclear dots, nucleolar, or speckled. Cytoplasmic pattern is reported as BENNETT negative. All patterns are reported to endpoint titers (1:2560). Reported patterns may help guide differential diagnosis, although they may not be specific for individual antibodies or diseases. Negative results do not necessarily rule out SARD. SCL-70 Antibody 3 0 - 40 AU/mL 11/19/2019 7:42 AM [facility] ([facility]) Comment: INTERPRETIVE INFORMATION: Scleroderma (Scl-70) (COURT) Ab, IgG 29 AU/mL or Less ............. Negative 30 - 40 AU/mL ................ Equivocal 41 AU/mL or Greater .......... Positive The presence of Scl-70 antibodies (also referred to as topoisomerase I, washington-I or JEANA) is considered diagnostic for systemic sclerosis (SSc). Scl-70 antibodies alone are detected in about 20 percent of SSc patients and are associated with the diffuse form of the disease, which may include specific organ involvement and poor prognosis. Scl-70 antibodies have also been reported in a varying percentage of patients with systemic lupus erythematosus (SLE). Scl-70 (washington-1) is a DNA binding protein and anti-DNA/DNA complexes in the sera of SLE patients may bind to washingtno-I, leading to a false-positive result. The presence of Scl-70 antibody in sera may also be due to contamination of recombinant Scl-70 with DNA derived from cellular material used in immunoassays. Strong clinical correlation is recommended if both Scl-70 and dsDNA antibodies are detected. Negative results do not necessarily rule out the presence of SSc. If clinical suspicion remains, consider further testing for centromere, RNA polymerase III and U3-DATA COMPILER, PM/Scl, or Th/To antibodies. RNA Polymerase 3 Antibody IgG 4 0 - 19 Units 11/19/2019 7:42 AM [facility] ([facility]) Comment: INTERPRETIVE INFORMATION: RNA Polymerase III Antibody, IgG 19 Units or less ......Negative 20 - 39 Units .........Weak Positive 40 - 80 Units .........Moderate Positive 81 Units or greater ...Strong Positive The presence of RNA polymerase III IgG antibody, when considered in conjunction with other laboratory and clinical findings, is an aid in the diagnosis of systemic sclerosis (SSc) with increased incidence of skin involvement and renal crisis with the diffuse cutaneous form of SSc. RNA polymerase III IgG antibody occur in about 11-23 percent of SSc patients, and typically in the absence of anti-centromere and anti-Scl-70 antibodies. A negative result indicates no detectable IgG antibodies to the dominant antigen of RNA polymerase III and does not rule out the possibility of SSc. False-positive results may also occur due to non-specific binding of immune complexes. Strong clinical correlation is recommended. If clinical suspicion remains, consider additional testing for other antibodies associated with SSc, including centromere, Scl-70, U3-DATA COMPILER, PM/Scl, or Th/To. Patton/DATA COMPILER (COURT) Antibody IgG 15 0 - 40 AU/mL 11/19/2019 7:42 AM [facility] ([facility]) Comment: INTERPRETIVE INFORMATION: Patton/DATA COMPILER (COURT) Antibody, IgG 29 AU/mL or Less ............. Negative 30 - 40 AU/mL ................ Equivocal 41 AU/mL or Greater .......... Positive Patton/DATA COMPILER antibodies are frequently seen in patients with mixed connective tissue disease (MCTD) and are also associated with other systemic autoimmune rheumatic diseases (SARDs) such as systemic lupus erythematosus (SLE), systemic sclerosis, and myositis. Antibodies targeting the Patton/DATA COMPILER antigenic complex also recognize Patton antigens, therefore, the Patton antibody response must be considered when interpreting these results. PM/Scl 100 Antibody IgG Negative Negative 11/19/2019 7:42 AM CDT [facility] ([facility]) Comment: INTERPRETIVE INFORMATION: PM/Scl-100 Antibody, IgG by Immunoblot The presence of PM/Scl-100 IgG antibody along with a positive BENNETT IFA nucleolar pattern is associated with connective tissue diseases such as polymyositis (PM), dermatomyositis (DM), systemic sclerosis (SSc), and polymyositis/systemic sclerosis overlap syndrome. The clinical relevance of PM/Scl-100 IgG antibody with a negative BENNETT IFA nucleolar pattern is unknown. PM/Scl-100 is the main target epitope of the PM/Scl complex, although antibodies to other targets not detected by this assay may occur. Test developed and characteristics determined by [facility]. See Compliance Statement D: [employer]/CS Fibrillarin (U3 DATA COMPILER) Antibody IgG Negative Negative 11/19/2019 7:42 AM CDT [facility] ([facility]) Comment: Interpretive Information: Fibrillarin (U3 DATA COMPILER) Antibody, IgG The presence of fibrillarin (U3-DATA COMPILER) IgG antibodies in association with an BENNETT IFA nucleolar pattern is suggestive of systemic sclerosis (SSc). In SSc, these antibodies are associated with distinct clinical features, such as younger age at disease onset, frequent internal organ involvement (pulmonary hypertension, myositis and renal disease). Fibrillarin antibodies are detected more frequently in patients with SSc compared to other ethnic groups. Strong correlation with BENNETT IFA results is recommended. In a multi-ethnic cohort of SSc patients (n=98), U3-DATA COMPILER antibodies detected by immunoblot had an agreement of 98.9 percent with the gold standard immunoprecipitation (IP) assay. Approximately 71 percent (5/7) of the borderline U3-DATA COMPILER results with BENNETT nucleolar pattern in this cohort were IP negative. Test developed and characteristics determined by [email or web address]. See Compliance Statement D: [employer]/ Performed By: [facility] [address] [place] [address] [employer] Associate: Lance Sandoval MD, MS Blood BLOOD SPECIMEN / Unknown Lab Venipuncture / Unknown 11/16/2019 9:28 AM CDT 11/16/2019 10:24 AM CDT Salbador Choudhary MD LAB - SEROLOGY ORDER ANDREINA [facility] [employer]) [address] [place] [address] * SS-A (SJOGREN'S) 52+60 ANTIBODIES (11/16/2019 9:28 AM CDT) SS-A 52 Antibody 4 0 - 40 AU/mL 11/18/2019 6:32 AM CDT [facility] [place] ([facility]) Comment: INTERPRETIVE INFORMATION: SSA-52 (Ro52) (COURT) Antibody, IgG 29 AU/mL or Less ............. Negative 30 - 40 AU/mL ................ Equivocal 41 AU/mL or Greater .......... Positive SSA-52 (Ro52) and/or SSA-60 (Ro60) antibodies are associated with a diagnosis of Sjogren syndrome, systemic lupus erythematosus (SLE), and systemic sclerosis. SSA-52 antibody overlaps significantly with the major SSc-related antibodies. SSA-52 (Ro52) antibody occurs frequently in patients with inflammatory myopathies, often in the presence of interstitial lung disease. SS-A 60 Antibody 1 0 - 40 AU/mL 11/18/2019 6:32 AM CDT [facility] ([facility]) Comment: REFERENCE INTERVAL: SSA-60 (Ro60) (COURT) Antibody, IgG 29 AU/mL or Less ............. Negative 30 - 40 AU/mL ................ Equivocal 41 AU/mL or Greater .......... Positive Performed By: [facility] [address] [place] [address] Summer Law Associate: Lance Sandoval MD, MS Blood BLOOD SPECIMEN / Unknown Lab Venipuncture / Unknown 11/16/2019 9:28 AM CDT 11/16/2019 10:25 AM CDT Salbador Choudhary MD [facility] Organization Address City/State/ZIP Co de Phone Number [facility]) [address] [place] [address], [place] * PATTON (SM) ANTIBODY COURT (11/16/2019 9:28 AM CDT) Patton (COURT) Antibody 2 0 - 40 AU/mL 11/18/2019 6:32 AM CDT [facility] [place] ([facility]) Comment: INTERPRETIVE INFORMATION: Patton (COURT) Antibody, IgG 29 AU/mL or Less ............. Negative 30 - 40 AU/mL ................ Equivocal 41 AU/mL or Greater .......... Positive Patton antibody is highly specific (greater than 90 percent) for systemic lupus erythematosus (SLE) but only occurs in 30-35 percent of SLE cases. The presence of antibodies to Patton has variable associations with SLE clinical manifestations. Performed By: [facility] [address] [place] [address] Summer Law Associate: Lance Sandoval MD, MS Blood BLOOD SPECIMEN / Unknown Lab Venipuncture / Unknown 11/16/2019 9:28 AM CDT 11/16/2019 10:25 AM CDT Salbador Choudhary MD LAB - CHEMISTRY SHANKAR KATE [facility]) [address] * RHEUMATOID FACTOR BLOOD QUANTITATIVE (11/16/2019 9:28 AM CDT) Pathologist [facility] [place] Rheumatoid Factor 16 <30 IU/mL 11/16/2019 1:51 PM CDT [facility] Blood BLOOD SPECIMEN / Unknown Lab Venipuncture / Unknown 11/16/2019 9:28 AM CDT 11/16/2019 10:25 AM CDT Salbador Choudhary MD LAB - CHEMISTRY SHANKAR KATE [address] [id number] [phone] * BENNETT BLOOD SCREEN W/REFLEX TITER (11/16/2019 9:28 AM CDT) [facility] BENNETT IgG None Detected None Detected 11/18/2019 3:12 PM CDT [facility]) Comment: If suspicion of connective tissue disease is strong and BENNETT EIA is negative, consider testing for BENNETT by IFA ([id number]). INTERPRETIVE INFORMATION: Anti-Nuclear Antibodies (BENNETT), IgG by STACEY Antinuclear Antibodies (BENNETT), IgG by STACEY: BENNETT specimens are screened using enzyme-linked immunosorbent assay (STACEY) methodology. All STACEY results reported as Detected are further tested by indirect fluorescent assay (IFA) using HEp-2 substrate with an IgG-specific conjugate. The BENNETT STACEY screen is designed to detect antibodies against dsDNA, histones, SS-A (Ro), SS-B (La), Patton, Patton/DATA COMPILER, Scl-70, Makayla-1, centromeric proteins, other antigens extracted from the HEp-2 cell nucleus. BENNETT STACEY assays have been reported to have lower sensitivities than BENNETT IFA for systemic autoimmune rheumatic diseases (SARD). Negative results do not necessarily rule out SARD. Performed By: [facility] [address] [place] [address] Summer Law Associate: Lance Sandoval MD, MS Blood BLOOD SPECIMEN / Unknown Lab Venipuncture / Unknown 11/16/2019 9:28 AM CDT 11/16/2019 10:25 AM CDT Salbador Choudhary MD LAB - CHEMISTRY SHANKAR KATE Performing Organization Address City/[facility]/ZIP Co de Phone Number [employer] [place] ([facility]) [address] [place] [address] * SS-B (SJOGREN'S) ANTIBODY (11/16/2019 9:28 AM CDT) SS-B Antibody 1 0 - 40 AU/mL 11/18/2019 6:32 AM CDT [facility] [place] ([facility]) Comment: INTERPRETIVE INFORMATION: SSB (La) (COURT) Ab, IgG 29 AU/mL or Less ............. Negative 30 - 40 AU/mL ................ Equivocal 41 AU/mL or Greater .......... Positive SSB (La) antibody is seen in 50-60% of Sjogren syndrome cases and is specific if it is the only COURT antibody present. 15-25% of patients with systemic lupus erythematosus (SLE) and 5-10% of patients with progressive systemic sclerosis (PSS) also have this antibody. Performed By: [facility] [address] [place] [address] Summer Law Associate: Lance Sandoval MD, MS Blood BLOOD SPECIMEN / Unknown Lab Venipuncture / Unknown 11/16/2019 9:28 AM CDT 11/16/2019 10:25 AM CDT Salbador Choudhary MD LAB - CHEMISTRY SHANKAR KATE Performing Organization Address City/[facility]/ZIP Co de Phone Number [facility] [place] ([facility]) [address] [place] [address] * DNA ANTIBODY DOUBLE STRANDED (11/16/2019 9:28 AM CDT) [facility] dsDNA Antibody None Detected None Detected 11/18/2019 4:55 PM CDT [facility] [place] ([facility]) Comment: INTERPRETIVE INFORMATION: Double-Stranded DNA (dsDNA) Antibody, IgG by STACEY Positivity for anti-double stranded DNA (anti-dsDNA) IgG antibody is a diagnostic criterion of systemic lupus erythematosus (SLE). Specimens are initially screened by enzyme-linked immunosorbent assay (STACEY). All STACEY results reported as detected (positive) are confirmed by a highly specific IFA titer (Crithidia luciliae indirect fluorescent test [BRAYDEN]). Some patients with early or inactive SLE may be positive for anti-dsDNA IgG by STACEY but negative by BRAYDEN. If the patient is negative by BRAYDEN but positive by STACEY and clinical suspicion remains, consider antinuclear antibody (BENNETT) testing by IFA. Additional information and recommendations for testing may be found at http://www.[email or web address]/Topics/AutoimmuneDz/[email or web address]/[email or web address] ndex.html. Performed By: [email or web address] [address] [place] [address] Summer Law Associate: Lance Sandoval MD, MS Blood BLOOD SPECIMEN / Unknown Lab Venipuncture / Unknown 11/16/2019 9:28 AM CDT 11/16/2019 10:25 AM CDT Salbador Choudhary MD LAB - HEMATOLOGY ORD ERABLES [facility] [place]) [address] [place] [address], [place] * MAKAYLA-1 ANTIBODY (11/16/2019 9:28 AM CDT) [facility] Makayla-1 Antibody IgG 3 0 - 40 AU/mL 11/18/2019 6:32 AM CDT [facility] ([facility]) Comment: INTERPRETIVE INFORMATION: Makayla-1 Antibody, IgG 29 AU/mL or less.........Negative 30-40 AU/mL..............Equivocal 41 AU/mL or greater......Positive Presence of Makayla-1 (antihistidyl transfer RNA [t-RNA] synthetase) antibody is associated with polymyositis and may also be seen in patients with dermatomyositis. Makayla-1 antibody is associated with pulmonary involvement (interstitial lung disease), Raynaud phenomenon, arthritis, and garden machinery mechanic's hands (implicated in antisynthetase syndrome). Performed By: [facility] [address] [place] [address] Summer Law Associate: Lance Sandoval MD, MS Blood BLOOD SPECIMEN / Unknown Lab Venipuncture / Unknown 11/16/2019 9:28 AM CDT 11/16/2019 10:25 AM CDT Salbador Choudhary MD LAB - CHEMISTRY SHANKAR KATE [facility] ([facility]) [address] [place] [address] * CYCLIC CITRULLINATED PEPTIDE(CCP) AB IGG (11/16/2019 9:28 AM CDT) CCP Antibody IgG 0.5 <5.0 U/mL 11/16/2019 2:21 PM CDT [facility] Blood BLOOD SPECIMEN / Unknown Lab Venipuncture / Unknown 11/16/2019 9:28 AM CDT 11/16/2019 10:25 AM CDT Salbador Choudhary MD LAB - CHEMISTRY SHANKAR KATE [address] [phone] * DERMATOPATHOLOGY (09/06/2019 12:00 AM CDT) Case Report Dermatopathology Report Case: [id number] Authorizing Provider: Rosie Mary MD Collected: 09/06/2019 12:00 AM Ordering Location: [facility] DermPath Lab Received: 09/07/2019 06:47 AM Pathologist: [...] The specimen consists of a punch measuring [id number], bisected. Jar 0. 0 3:10 PM CDT [...] characteristic determined by the Dermatopathology Laboratory at [facility], directed by Dr. Elian Jo. These tests need not be, and therefore are not, approved by the [place] Food and Drug Administration. The tests are used for clinical purposes. Billing Codes Specimen Charges Stain Charges 83429 1 83136 64631 1 1 0 3:10 PM CDT DERMATOPATHOLOGY LABORATORY Embedded Images 0 3:10 PM CDT DERMATOPATHOLOGY LABORATORY Pathology/Cytolog y TISSUE SPECIMEN FROM SKIN / Unknown 09/06/2019 09/07/2019 6:47 AM CDT Rosie Mary MD LAB - PATHOLOGY/CYTO LOGY ORDERABLES DERMATOPATHOLOGY LABORATORY [facility] - Department of Dermatology [address] [facility], 5th Floor Lab B [address] [phone] Care Teams Demand Generation Manager Relationship Specialty Start Date End Date Tasha Perez PA-C [address] [place] [phone] PCP - General 10/08/19
--- OUTSIDE RECORDS SUMMARY | 2024-06-21 10:33 | XMS_ITS | Encounter Summary ---
Author Organization [facility] Address [address] [place] [address] Care Team Providers Care Case Advocate Name Role Phone Tasha Perez PA-C Primary Care Provider Reason for Visit * Reason Onset Date Comments Post Op Call 04/05/2020 Encounter Details Date Type Department Care Team (Late Contact Info) Description 04/05/2020 Telephone [facility] [address] [place] [phone] Latanya Chapa RN Post Op Call Social History Tobacco Use Types Packs/Day Years Used Date Smoking Tobacco: Never Smokeless Tobacco: Never Alcohol Use Standard Drinks/Week Comments Not Currently 0 (1 standard drink = 0.6 oz pur e alcohol) Sex and Gender Information Value Date Recorded Sex Assigned at Not on file Gender Identity Not on file Sexual Orientation Not on file documented as of this encounter Plan of Treatment Upcoming Encounters Date Type Department Care Team (Late Contact Info) Description 10/13/2024 2:40 PM CDT Office Visit [facility] - Rheumatology [address] [place] [address], [place] [phone] Linda Pennington MD [address] [place] [address] [place] [phone] documented as of this encounter Visit Diagnoses Not on filedocumented in this encounter Additional Health Concerns Infection Onset Date Last Indicated Resolved Time COVID-19 Under Investigation 12/18/2021 12/18/2021 12/18/2021 1:01 PM CDT documented as of this encounter Care Teams Case Advocate Relationship Specialty Start Date End Date Tasha Perez PA-C [address] [place] [phone] PCP - General 10/08/19 documented as of this encounter
--- OUTSIDE RECORDS SUMMARY | 2024-06-21 10:33 | XMS_ITS | Referral Summary ---
Author Organization [facility] Address [address] [facility] [place] [address] Care Team Providers Care Warehouse Material Handler Name Role Phone Tasha Perez PA-C Primary Care Provider Source Comments [facility],non-owned Affiliates and Associated Physician Practices is amultiple site organization consisting of ambulatory clinics and hospital sitesin [place], [place], [place] and [place]. This disclosure is being madepursuant to the Care Everywhere program and may not contain all information available regarding this patient. Last updated 18.[facility] Encounters Date Type Department Care Team Description 06/21/2024 Telephone [facility] - Rheumatology [address] [place] [phone] Linda Pennington MD Question 06/21/2024 Telephone [facility] - Rheumatology [address] [place] [phone] Linda Pennington MD Requesting Labs 06/15/2024 Travel 06/15/2024 3:20 PM SR. MANAGER Office Visit [facility] - Rheumatology [address] [place] [phone] Linda Pennington MD Adult onset amyopathic dermatomyositis (HCC) (Primary Dx); Encounter for long-term (current) use of high-risk medication; Encounter for therapeutic drug monitoring; Dermatomyositis (HCC) from Last 3 Months Allergies No known active allergies Medications * [...] Last Assessment & Plan: Will send to [place] [facility] for outpatient covid 19 testing. Patient [...] protection Assessment & Plan (05/31/2020 1:45 PM SR. MANAGER): Improved -Continue HCQ 200mg daily -Continue Desonide [...] visit Assessment & Plan (05/31/2020 4:27 PM SR. MANAGER): Hydroxychloroquine - CBC and CMP ordered to [...] qid. Cough 12/09/2019 01/06/2020 Cough 10/11/2019 11/08/2019 Immunizations Name Administration Dates Next Due INFLUENZA VACCINE, TRIV. (AF LURIA, FLUZONE TRIVALENT; 6MO+) (IIV3) 05/06/2014,03/19/2013 Covid MD2U primary monoval ent 12+ yr 0.3mL Purple cap 04/27/2021 DTaP VACCINE IM (6wk-6yrs) 08/30/2014 FLU VACCINE QUAD IIV4 SPLIT 0.25 ML IM 8,02/26/2016,04/10/2015 INFLUENZA VACCINE, CELL CULT URE, QUADR. (FLUCELVAX QUADRIVALENT; 6MO+) (CCIIV4) 01/31/2020 INFLUENZA VACCINE, QUADR. (F LUZONE; FLULAVAL; FLUARIX; AFLURIA QUADRIVALENT; 6MO+), 0.5 ML (IIV4) 01/02/2017 TDAP (7yrs+) 08/30/2014,08/23/2013 iNFLUENZA VACCINE, RECOM-CAMPO, QUADR. (FLUBLOCK QUADRIVALENT; 18Y+) (RIV4) 01/30/2021 Social History Tobacco Use Types Packs/Day Years [...] Comments Blood Pressure 120/73 06/15/2024 3:28 PM SR. MANAGER Pulse 78 06/15/2024 3:28 PM SR. MANAGER Temperature 36.1 C (97 F) 06/15/2024 3:28 PM SR. MANAGER Respiratory Rate 16 12/18/2021 6:24 PM CDT Oxygen Saturation 98% 06/15/2024 3:28 PM SR. MANAGER Inhaled Oxygen Concentration - - Weight 58 kg (127 lb 12.8 oz) 06/15/2024 3:28 PM SR. MANAGER Height 162.6 cm (5' 4 ) 06/15/2024 3:28 PM SR. MANAGER Body Mass Index 21.94 06/15/2024 3:28 PM SR. MANAGER Plan of Treatment Upcoming Encounters Date Type Department Care Team (Late st Contact Info) Description 10/13/2024 2:40 PM CDT Office Visit [facility] - Rheumatology [address] [place] [address], [facility] [place] [phone] Linda Pennington MD [address] [place] [address] [place] [address] Procedures Procedure Name Priority Date/Time Associated Diagnosis Comments EXTENDED MYOSITIS PANEL 06/21/2024 8:20 AM SR. MANAGER from Last 3 Months Care Teams Warehouse Material Handler Relationship Specialty Start Date End Date Tasha Perez PA-C [address] [place] [phone] PCP - General 10/08/19
--- OUTSIDE RECORDS SUMMARY | 2024-06-21 10:33 | XMS_ITS | Encounter Summary ---
Author Organization [facility] Address [address] [place] [address] Care Team Providers Care Sewer Head Name Role Phone Tsaha Perez PA-C Primary Care Provider Reason for Visit * Reason Onset Date Comments Returned Call 01/06/2020 Encounter Details Date Type Department Care Team (Late Contact Info) Description 01/06/2020 Telephone [facility] [address] [place] [address] Kathy Cash MD [address] [facility] 3L DEPT [place] [address] Returned Call Social History Tobacco Use Types Packs/Day Years Used Date Smoking Tobacco: Never Smokeless Tobacco: Never Alcohol Use Standard Drinks/Week Comments Not Currently 0 (1 standard drink = 0.6 oz pur e alcohol) Sex and Gender Information Value Date Recorded Sex Assigned at Not on file Gender Identity Not on file Sexual Orientation Not on file COVID-19 Exposure Response Date Recorded In the last month, have you been in contact with someone who was confirmed or suspected to have Coronavirus / COVID-19? No / Unsure 12/31/2019 10:56 AM CDT documented as of this encounter Miscellaneous Notes * Telephone Encounter - Araceli Bansal - 01/06/2020 1:15 PM CDT Pt returning call regarding results. documented in this encounter Plan of Treatment Upcoming Encounters Date Type Department Care Team (Late Contact Info) Description 10/13/2024 2:40 PM CDT Office Visit [facility] - Rheumatology [address] [facility], [place] [phone] Linda Pennington MD [facility] [place] [phone] documented as of this encounter Visit Diagnoses Not on filedocumented in this encounter Additional Health Concerns Infection Onset Date Last Indicated Resolved Time COVID-19 Under Investigation 12/18/2021 12/18/2021 12/18/2021 1:01 PM CDT documented as of this encounter Care Teams Sewer Head Relationship Specialty Start Date End Date Tasha Perez PA-C [address] [place] [phone] PCP - General 10/08/19 documented as of this encounter
== END 2024-06-21 09:40 | disposition home or self-care (01) ==
PROVIDERS: PCP Physician Assistant; Visit Provider Internal Medicine Rheumatology
DX: M33.13 Other dermatomyositis without myopathy (principal); M17.11 Unilateral primary osteoarthritis, right knee; Z79.899 Other long term (current) drug therapy; Z51.81 Encounter for therapeutic drug level monitoring
CPT/HCPCS: 73560

== ENCOUNTER 2024-06-29 19:26 | Emergency (ER) | payer OTHER, SELFPAY ==
--- NOTE | ~2024-06-29 | CT_ITS ---
CLINICAL INDICATION: Flank pain COMPARISON: 05/01/2021. TECHNIQUE: Multiple contiguous axial images of the abdomen and pelvis were performed without the admi nistration of intravenous contrast The dose-length product (DLP) was 194.94 mGy-cm. Automated exposure control and iterative reconstruction technique were employed. FINDINGS/OBSERVATIONS: Visualized lower thorax: The bilateral lung bases are clear. The heart is of normal size, without pericardial effusion. Liver: The liver demonstrates homogeneous attenuation and is not enlarged measuring 17 cm in longitudinal di mension. Gallbladder and biliary system: The gallbladder is minimally distended, and contains multiple calcified stones without wall thickenin g or surrounding inflammatory change. Pancreas: Limited evaluation of the pancreas secondary to the lack of intravenous contrast. Spleen: The spleen demonstrates homogeneous attenuation and is not enlarged measuring 10 cm in longitudinal d imension. Kidneys: The bilateral kidneys are unremarkable, without hydronephrosis or renal calculi. Adrenal glands: Unremarkable. Gastrointestinal tract: Colonic diverticulosis without surrounding inflammatory change. Appendix: The air-filled appendix is of normal caliber (axial series, images 114 through 122). Vasculature: Unremarkable. Lymph nodes: Limited evaluation without intravenous contrast Pelvic structures: The bladder is only minimally distended, and otherwise unremarkable. The uterus is anteverted and anteflexed, and otherwise unremarkable. Body wall and musculoskeletal: A small fat and likely omental containing umbilical hernia. No significant degenerative disease within the lower thoracic or lumbosacral spine. IMPRESSION: No obstructive uropathy. Cholelithiasis. Colonic diverticulosis without surrounding inflammatory change Reviewed, dictated and finalized at location A. [facility]
--- OUTSIDE RECORDS SUMMARY | 2024-06-29 19:28 | XMS_ITS | Encounter Summary ---
Author Organization [facility] Address [address] [place] [address] Care Team Providers Care Brush Filler Hand Name Role Phone Tasha Perez PA-C Primary Care Provider Encounter Details Date Type Department Care Team (Late st Contact Info) Description 09/07/2019 Lab Requisition [facility] Care DermPath Lab [address] [facility] [place] [phone] Rosie Mary MD [address] [place] [address] [address] [place] [address] Social History Tobacco Use Types Packs/Day Years [...] Office Visit [facility] - Rheumatology [address] [place] [address], [place] [address] Linad Pennington MD [address] [place] [address] 2L [place] [address] documented as of this encounter Procedures Procedure Name Priority Date/Time Associated Diagnosis Comments DERMATOPATHOLOGY Routine 09/06/2019 12:0 0 AM CDT documented in this encounter Results * DERMATOPATHOLOGY (09/06/2019 12:00 AM CDT) Case Report Dermatopathology Report Case: [id number] Authorizing Provider: Rosie Mary MD Collected: 09/06/2019 12:00 AM Ordering Location: [facility] DermPath Lab Received: 09/07/2019 06:47 AM [...] The specimen consists of a punch measuring [id number], bisected. Jar 0. 0 3:10 PM CDT [...] characteristic determined by the Dermatopathology Laboratory at [facility], directed by Dr. Elian Jo. These tests need not be, and therefore are not, approved by the [place] Food and Drug Administration. The tests are used for clinical purposes. Billing Codes Specimen Charges Stain Charges 27116 1 04171 59182 1 1 0 3:10 PM CDT DERMATOPATHOLOGY LABORATORY Embedded Images 0 3:10 PM CDT DERMATOPATHOLOGY LABORATORY Pathology/Cytolog y TISSUE SPECIMEN FROM SKIN / Unknown 09/06/2019 09/07/2019 6:47 AM CDT Rosie Mary MD LAB - PATHOLOGY/CYTO LOGY ORDERABLES DERMATOPATHOLOGY LABORATORY [facility] - Department of Dermatology [address] [place] [address], 5th Floor Lab [address] [phone] documented in this encounter Visit Diagnoses Not on filedocumented in this encounter Additional Health Concerns Infection Onset Date Last Indicated Resolved Time COVID-19 Under Investigation 12/18/2021 12/18/2021 12/18/2021 1:01 PM CDT documented as of this encounter Care Teams Brush Filler Hand Relationship Specialty Start Date End Date Tasha Perez PA-C [facility] [place] [phone] PCP - General 10/08/19 documented as of this encounter
--- OUTSIDE RECORDS SUMMARY | 2024-06-29 19:28 | XMS_ITS | Referral Summary ---
Author Organization [facility] [address] [place] [phone] Care Team Providers Care Sales Force Administrator Name Role Phone Tasha Perez Primary Care [...] (12/17/2021 9:09 AM CDT): Will send to [facility] for outpatient covid 19 testing. Patient [...] prilosec Assessment & Plan (06/11/2021 6:59 PM CRATE LINER): improving with protonix, continue with medication at this time Assessment & Plan (05/28/2021 11:46 AM CRATE LINER): Will refer to gi for further evaluation and treatment Advised bland diet Will change pepcid to nexium Will evaluate abd pain further with US Rectal bleed 05/28/2021 Assessment & Plan (05/28/2021 11:45 AM CRATE LINER): Patient declines rectal exam Will refer to gi Will assess for anemia with labs today Irregular menses 05/28/2021 Assessment & Plan (05/28/2021 11:45 AM CRATE LINER): She was encouraged to follow up with her kindergarten assistant Calculus of gallbladder with out cholecystitis without obstruction 05/28/2021 Assessment & Plan (05/28/2021 11:47 AM CRATE LINER): We reviewed ct abd/pelvis from care everywhere. Will evaluate further with US abdomen. History of Helicobacter pylori infection 022 Assessment & Plan (05/28/2021 11:46 AM CRATE LINER): Will refer to gi for further evaluation and treatment Advised bland diet Will change pepcid to nexium Will evaluate abd pain further with US History of COVID-19 05/28/2021 Dizziness 11/27/2020 Assessment & Plan (07/16/2021 7:17 PM CDT): Continue with prn antivert Assessment & Plan (06/11/2021 7:35 PM CRATE LINER): Add prn meclizine, advised no driving for 6h after taking as it may make her drowsy Discussed further evaluation with imaging if symptoms continue Assessment & Plan (05/28/2021 11:46 AM CRATE LINER): Will evaluate further with labs for anemia [...] 10/11/2019 Assessment & Plan (05/28/2021 11:47 AM CRATE LINER): Advised follow up with derm - note [...] 12/17/2021 Assessment & Plan (05/28/2021 11:46 AM CRATE LINER): Retrieve records from previous pcp Immunizations Immunization [...] on file Legal Sex Female 9:29 AM CRATE LINER Gender Identity Not on file Sexual Orientation [...] age 40, based on guidelines of the [employer] (ACR Practice Parameter for the Performance of Screening and Diagnostic Mammography) and [employer]. For women [...] Most Recently Relevant to Health Maintenance Insurance [id number] [place] [address] [facility] Care Teams Sales Force Administrator Relationship Specialty Start Date End Date Tasha Perez PA PCP - General Physician Hydraulic Specialist 07/08/22
--- OUTSIDE RECORDS SUMMARY | 2024-06-29 19:28 | XMS_ITS | Clinical Summary ---
Author Organization [facility] Medical Office Building [address] [place] [id number] Care Team Providers Care Modeling Agent Name Role Phone Tasha Perez Primary Care [...] (12/17/2021 9:09 AM CDT): Will send to [place] now for outpatient covid 19 testing. Patient [...] prilosec Assessment & Plan (06/11/2021 6:59 PM TOWEL FOLDER): improving with protonix, continue with medication at this time Assessment & Plan (05/28/2021 11:46 AM TOWEL FOLDER): Will refer to gi for further evaluation and treatment Advised bland diet Will change pepcid to nexium Will evaluate abd pain further with US Rectal bleed 05/28/2021 Assessment & Plan (05/28/2021 11:45 AM TOWEL FOLDER): Patient declines rectal exam Will refer to gi Will assess for anemia with labs today Irregular menses 05/28/2021 Assessment & Plan (05/28/2021 11:45 AM TOWEL FOLDER): She was encouraged to follow up with her buying agent Calculus of gallbladder with out cholecystitis without obstruction 05/28/2021 Assessment & Plan (05/28/2021 11:47 AM TOWEL FOLDER): We reviewed ct abd/pelvis from care everywhere. Will evaluate further with US abdomen. History of Helicobacter pylori infection 022 Assessment & Plan (05/28/2021 11:46 AM TOWEL FOLDER): Will refer to gi for further evaluation and treatment Advised bland diet Will change pepcid to nexium Will evaluate abd pain further with US History of COVID-19 05/28/2021 Dizziness 11/27/2020 Assessment & Plan (07/16/2021 7:17 PM CDT): Continue with prn antivert Assessment & Plan (06/11/2021 7:35 PM TOWEL FOLDER): Add prn meclizine, advised no driving for 6h after taking as it may make her drowsy Discussed further evaluation with imaging if symptoms continue Assessment & Plan (05/28/2021 11:46 AM TOWEL FOLDER): Will evaluate further with labs for anemia [...] 10/11/2019 Assessment & Plan (05/28/2021 11:47 AM TOWEL FOLDER): Advised follow up with derm - note [...] 12/17/2021 Assessment & Plan (05/28/2021 11:46 AM TOWEL FOLDER): Retrieve records from previous pcp Immunizations Immunization [...] on file Legal Sex Female 9:29 AM TOWEL FOLDER Gender Identity Not on file Sexual Orientation [...] age 40, based on guidelines of the [employer] (ACR Practice Parameter for the Performance of Screening and Diagnostic Mammography) and [employer]. For women [...] Most Recently Relevant to Health Maintenance Insurance [facility] Care Teams Modeling Agent Relationship Specialty Start Date End Date Tasha Perez PA PCP - General Physician Pathology Specialist 07/08/22
--- OUTSIDE RECORDS SUMMARY | 2024-06-29 19:28 | XMS_ITS | Encounter Summary ---
Author Organization [facility] Address [address] [place] [address] Care Team Providers Care Speck Dyer Name Role Phone Tasha Perez PA-C Primary Care Provider Encounter Details Date Type Department Care Team (Late Contact Info) Description 02/11/2024 Telephone [facility] - Centralized Scheduling [address] [place] [address] Neena Jo MD [address] [place] [address] [address] [place] [address] Social History Tobacco Use Types [...] Upcoming Encounters Date Type Department Care Team ([facility] Contact Info) Description 10/13/2024 2:40 PM CDT Office Visit [facility] - Rheumatology [address] [place] [address], [facility] [place] [address] Linda Pennington MD [address] [place] [address] documented as of this encounter Visit Diagnoses Not on filedocumented in this encounter Care Teams Speck Dyer Relationship Specialty Start Date End Date Tasha Perez PA-C [address] [place] [phone] PCP - General 10/08/19 documented as of this encounter
[2024-06-29 19:29] VITALS: BP 116/66; PULSE 71; RESP 20; TEMP 37.2; O2SAT 100
--- OUTSIDE RECORDS SUMMARY | 2024-06-29 19:29 | XMS_ITS | Clinical Summary ---
Author Organization [facility] Care Team Providers Care Front End Developer Name Role Phone Unavailable Primary Care Provider Unavailabl e Social History Tobacco Use Types Packs/Day Years Used Date Smoking Tobacco: Never Assessed Comments Unknown Sex and Gender Information Value Date Recorded Sex Assigned at Not on file Legal Sex Female 8:51 AM WELDING MACHINE OPERATOR GAS Gender Identity Not on file Sexual Orientation [...]
--- OUTSIDE RECORDS SUMMARY | 2024-06-29 19:29 | XMS_ITS | Patient Health Summary ---
Author Organization [facility] Address [address] [place] [address] Care Team Providers Care Drum Builder Name Role Phone Tasha Perez PA-C Primary Care Provider Note from [facility],non-owned Affiliates and Associated Physician Practices is amultiple site organization consisting of ambulatory clinics and hospital sitesin [place], [place], [place] and [place]. This disclosure is being madepursuant to the Care Everywhere program and may not contain all information available regarding this patient. Last updated 18.[facility] Allergies No known active allergies Medications * [...] TRIVALENT; 6MO+) (IIV3)(Given 05/06/2014, 03/19/2013) * Covid Dayforce primary monovalent 12+ yr 0.3mL Purple cap(Given [...] Comments Blood Pressure 120/73 06/15/2024 3:28 PM SADDLE TREE ST[facility]ER Pulse 78 06/15/2024 3:28 PM SADDLE TREE STITCHER Temperature 36.1 C (97 F) 06/15/2024 3:28 PM SADDLE TREE STITCHER Respiratory Rate 16 12/18/2021 6:24 PM CDT Oxygen Saturation 98% 06/15/2024 3:28 PM SADDLE TREE STITCHER Inhaled Oxygen Concentration - - Weight 58 kg (127 lb 12.8 oz) 06/15/2024 3:28 PM SADDLE TREE STITCHER Height 162.6 cm (5' 4 ) 06/15/2024 3:28 PM SADDLE TREE STITCHER Body Mass Index 21.94 06/15/2024 3:28 PM SADDLE TREE STITCHER Procedures * EXTENDED MYOSITIS PANEL(Performed 06/21/2024) * URINALYSIS W/MICROSCOPIC REFLEX TO CULTURE(Performed 06/21/2024) 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), Encounter for long- term (current) use of high-risk medication, Encounter for therapeutic drug monitoring * ERYTHROCYTE SEDIMENTATION RATE(Performed 06/21/2024) 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), Encounter for long- term (current) use of high-risk medication, Encounter for therapeutic drug monitoring * C-REACTIVE PROTEIN(Performed 06/21/2024) 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), Encounter for long- term (current) use of high-risk medication, Encounter for therapeutic drug monitoring * COMPREHENSIVE METABOLIC PANEL(Performed 06/21/2024) 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), Encounter for long- term (current) use of high-risk medication, Encounter for therapeutic drug monitoring * CBC W AUTO DIFFERENTIAL(Performed 06/21/2024) 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), Encounter for long- term (current) use of high-risk medication, Encounter for therapeutic drug monitoring * CULTURE URINE REFLEXED III(Performed 06/21/2024) * URINALYSIS W/MICROSCOPIC REFLEX TO CULTURE(Performed [...] 11/05/2023) 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[facility]), Encounter for long- term (current) use of [...] 06/10/2023) 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[facility]), Encounter for long- term (current) use of [...] 11/05/2022) 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[facility]), Encounter for long- term (current) use of high-risk medication, Encounter for therapeutic drug monitoring * CK BLOOD(Performed 11/05/2022) 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[facility]), Encounter for long- term (current) use of high-risk medication, Encounter for therapeutic drug monitoring * ALDOLASE(Performed 11/05/2022) 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[facility]), Encounter for long- term (current) use of high-risk medication, Encounter for therapeutic drug monitoring * ERYTHROCYTE SEDIMENTATION RATE(Performed 11/05/2022) 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[facility]), Encounter for long- term (current) use of high-risk medication, Encounter for therapeutic drug monitoring * C-REACTIVE PROTEIN(Performed 11/05/2022) 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[facility]), Encounter for long- term (current) use of high-risk medication, Encounter for therapeutic drug monitoring * COMPREHENSIVE METABOLIC PANEL(Performed 11/05/2022) 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[facility]), Encounter for long- term (current) use of high-risk medication, Encounter for therapeutic drug monitoring * CBC W AUTO DIFFERENTIAL(Performed 11/05/2022) 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[facility]), Encounter for long- term (current) use of high-risk medication, Encounter for therapeutic drug monitoring * MYOSITIS ANTIBODY PANEL COMPREHENSIVE(Performed 11/05/2022) 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[facility]), Encounter for long- term (current) use of high-risk medication, Encounter for therapeutic drug monitoring * CK BLOOD(Performed 06/17/2022) 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[facility]), Encounter for long- term (current) use of high-risk medication, Encounter for therapeutic drug monitoring * URINALYSIS W/MICROSCOPIC REFLEX TO CULTURE(Performed 06/17/2022) 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[facility]), Encounter for long- term (current) use of high-risk medication, Encounter for therapeutic drug monitoring * ERYTHROCYTE SEDIMENTATION RATE(Performed 06/17/2022) 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), Encounter for long- term (current) use of high-risk medication, Encounter for therapeutic drug monitoring * C-REACTIVE PROTEIN(Performed 06/17/2022) 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), Encounter for long- term (current) use of high-risk medication, Encounter for therapeutic drug monitoring * COMPREHENSIVE METABOLIC PANEL(Performed 06/17/2022) 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), Encounter for long- term (current) use of high-risk medication, Encounter for therapeutic drug monitoring * CBC W AUTO DIFFERENTIAL(Performed 06/17/2022) 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[facility]), Encounter for long- term (current) use of high-risk medication, Encounter for therapeutic drug monitoring * CULTURE URINE(Performed 06/17/2022) * CULTURE URINE REFLEXED II(Performed 06/17/2022) * ALDOLASE(Performed 02/11/2022) 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[facility]), Encounter for long- term (current) use of high-risk medication, Encounter for therapeutic drug monitoring * CK BLOOD(Performed 02/11/2022) 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[facility]), Encounter for long- term (current) use of high-risk medication, Encounter for therapeutic drug monitoring * URINALYSIS W/MICROSCOPIC REFLEX TO CULTURE(Performed 02/11/2022) 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[facility]), Encounter for long- term (current) use of high-risk medication, Encounter for therapeutic drug monitoring * ERYTHROCYTE SEDIMENTATION RATE(Performed 02/11/2022) 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[facility]), Encounter for long- term (current) use of high-risk medication, Encounter for therapeutic drug monitoring * C-REACTIVE PROTEIN(Performed 02/11/2022) 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[facility]), Encounter for long- term (current) use of high-risk medication, Encounter for therapeutic drug monitoring * COMPREHENSIVE METABOLIC PANEL(Performed 02/11/2022) 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[facility]), Encounter for long- term (current) use of high-risk medication, Encounter for therapeutic drug monitoring * CBC W AUTO DIFFERENTIAL(Performed 02/11/2022) 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[facility]), Encounter for long- term (current) use of [...] Encounter for therapeutic drug monitoring, 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HCC) * LDH BLOOD(Performed 12/04/2021) Performed for Oropharyngeal dysphagia, Encounter for long-term (current) use of high-risk medication, Encounter for therapeutic drug monitoring, 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HCC) * CK BLOOD(Performed 12/04/2021) Performed for Oropharyngeal dysphagia, Encounter for long-term (current) use of high-risk medication, Encounter for therapeutic drug monitoring, 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HCC) * ALDOLASE(Performed 12/04/2021) Performed for Oropharyngeal dysphagia, Encounter for long-term (current) use of high-risk medication, Encounter for therapeutic drug monitoring, 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HCC) * URINALYSIS W/MICROSCOPIC REFLEX TO CULTURE(Performed 12/04/2021) Performed for Oropharyngeal dysphagia, Encounter for long-term (current) use of high-risk medication, Encounter for therapeutic drug monitoring, 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[facility]) * ERYTHROCYTE SEDIMENTATION RATE(Performed 12/04/2021) Performed for Oropharyngeal dysphagia, Encounter for long-term (current) use of high-risk medication, Encounter for therapeutic drug monitoring, 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[facility]) * C-REACTIVE PROTEIN(Performed 12/04/2021) Performed for Oropharyngeal dysphagia, Encounter for long-term (current) use of high-risk medication, Encounter for therapeutic drug monitoring, 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[facility]) * CBC W AUTO DIFFERENTIAL(Performed 12/04/2021) Performed for Oropharyngeal dysphagia, Encounter for long-term (current) use of high-risk medication, Encounter for therapeutic drug monitoring, 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[facility]) * COMPREHENSIVE METABOLIC PANEL(Performed 12/04/2021) Performed for Oropharyngeal dysphagia, Encounter for long-term (current) use of high-risk medication, Encounter for therapeutic drug monitoring, 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[facility]) * COMPLETE PFT W/WO BRONCHODILATOR(Performed 08/20/2021) Performed for Chronic cough, Dyspnea on exertion, Dermatomyositis ([facility]) * MYOSITIS 11 ANTIBODY PNL(Performed 01/15/2021) Performed for Encounter for long-term (current) use of high-risk medication, Encounter for therapeutic drug monitoring, 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[facility]) * LDH BLOOD(Performed 01/15/2021) Performed for Encounter for long-term (current) use of high-risk medication, Encounter for therapeutic drug monitoring, 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[facility]) * CK BLOOD(Performed 01/15/2021) Performed for Encounter for long-term (current) use of high-risk medication, Encounter for therapeutic drug monitoring, 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[facility]) * ALDOLASE(Performed 01/15/2021) Performed for Encounter for long-term (current) use of high-risk medication, Encounter for therapeutic drug monitoring, 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[facility]) * URINALYSIS W/MICROSCOPIC REFLEX TO CULTURE(Performed 01/15/2021) Performed for Encounter for long-term (current) use of high-risk medication, Encounter for therapeutic drug monitoring, 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[facility]) * ERYTHROCYTE SEDIMENTATION RATE(Performed 01/15/2021) Performed for Encounter for long-term (current) use of high-risk medication, Encounter for therapeutic drug monitoring, 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HCC) * C-REACTIVE PROTEIN(Performed 01/15/2021) Performed for Encounter for long-term (current) use of high-risk medication, Encounter for therapeutic drug monitoring, 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HCC) * COMPREHENSIVE METABOLIC PANEL(Performed 01/15/2021) Performed for Encounter for long-term (current) use of high-risk medication, Encounter for therapeutic drug monitoring, 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HCC) * CBC W AUTO DIFFERENTIAL(Performed 01/15/2021) Performed for Encounter for long-term (current) use of high-risk medication, Encounter for therapeutic drug monitoring, 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HCC) * CULTURE URINE(Performed 01/15/2021) * CULTURE URINE [...] loss, Abdominal pain, unspecified abdominal location * UT ED EGD FLEX TRANSORAL DX(Performed 04/04/2020) Performed [...] cough * DERMATOPATHOLOGY(Performed 09/06/2019) Results * (ABNORMAL) EXTENDED MYOSITIS PANEL (06/21/2024 8:20 AM SADDLE TREE STITCHER) Makayla-1 Antibody <11 <[address] [facility] [address]-7 Antibody <11 <[address] [facility] [address]-12 Antibody <11 <11 [facility] EJ Antibody <11 <11 [facility] OJ Antibody <11 <11 [facility] SRP Antibody <11 <11 SI [facility] CA-2 Alpha Antibody <11 <11 SI [facility] CA-2 Beta Antibody <11 <11 SI [facility] MDA-5 Antibody <11 <11 SI [facility] TIF-1Y Antibody <11 <11 [facility] NXP-2 Antibody 37(H) <11 SI [facility] Comment: Myositis-specific autoantibodies (MSAs) are highly selective, generally mutually exclusive, and are associated with a particular clinical phenotype within the myositis spectrum. Anti-synthetase syndrome is associated with MSAs to cytoplasmic enzymes and tRNAs involved with the synthesis of proteins. Target antigens include Makayla-1, PL-7, PL-12, EJ, and OJ. Clinically, anti-synthetase syndrome is primarily characterized by myositis and lung inflammation. Dermatomyositis is associated with MSAs to SRP, Mi-2A, Mi-2B, and clinically this disease is characterized by myositis in association with a rash. Additionally, MSAs to MDA5 ([id number]) have been identified in patients with clinically amyopathic dermatomyositis and rapidly progressive lung disease. MSAs to TIF1-y and NXP-2, collectively, are seen in >40% of children with dermatomyositis and appear to identify those with more severe disease. Finally, TIF1-y Ab has been reported in adults with dermatomyositis and is associated with malignancy, but not in children. SRP Ab has also been associated with necrotizing myopathy, a disease with unique histological features and an aggressive clinical course. This test was developed and its analytical performance characteristics have been determined by [facility]. It has not been cleared or approved by the FDA. This assay has been validated pursuant to the CLIA regulations and is used for clinical purposes. HMGCR AB IGG <2 <20 CU [facility] Comment: 3-Ztubikj-0-Methylglutaryl-Coenzyme A Reductase (HMGCR) Ab is associated with necrotizing myopathy and is often found with the use of statin medications. Rarely, HMGCR Ab associated myositis has also been seen in patients ingesting mushrooms and other foods. Anti-cN-1A IGG <5 Units [facility] Comment: Reference Range: <15: NEGATIVE 15-19: BORDERLINE > OR = 20: POSITIVE The cN-1A Ab assay is a useful aid for the diagnosis of inclusion body myositis (IBM). The analytical sensitivity of this assay is 35-70%, based on published reports. In our internal validation study with 120 healthy adult subjects, 1.7% had a positive cN-1A Ab result and 6.7% had an equivocal result. However, published reports and our own internal studies suggest that patients with Sjogren's syndrome, systemic lupus erythematosus, dermatomyositis (DM), or polymyositis (PM), are significantly more likely to have a positive cN-1A Ab result. In contrast, patients presenting clinically with IBM rarely produce autoantibodies associated with a diagnosis of DM or PM. Therefore, cN-1A Ab results must be interpreted in context with other details of the patient's clinical evaluation. This test was developed and its analytical performance characteristics have been determined by [facility]. It has not been cleared or approved by FDA. This assay has been validated pursuant to the CLIA regulations and is used for clinical purposes. REPORT COMMENT: FASTING:YES Test Performed at: [facility] [id number] [place] [address] SARAH MARTINES MD,PHD,GIORGI 06/21/2024 8:20 AM SADDLE TREE STITCHER 06/21/2024 8:20 AM SADDLE TREE STITCHER Lidna Pennington MD LAB - CHEMISTR Y ORDERABLES Performing Organization Address [facility] [place] [address] * CULTURE URINE REFLEXED III (06/21/2024 7:58 AM SADDLE TREE STITCHER) Only the most recent of4 resultswithin the time period is included. Reflexive Urine Culture See Below [facility] Comment: NO CULTURE INDICATED REPORT COMMENT: FASTING:YES Test Performed at: [facility] [address] SIRIA MOFFETT MD 06/21/2024 7:58 AM SADDLE TREE STITCHER 06/21/2024 8:13 AM SADDLE TREE STITCHER Linda Pennington MD LAB - MICROBIO LOGY ORDERABLES Performing Organization Address [facility] [place] [address] * URINALYSIS W/MICROSCOPIC REFLEX TO CULTURE (06/21/2024 7:58 AM SADDLE TREE STITCHER) Only the most recent of9 resultswithin the time period is included. Color UA YELLOW YELLOW [facility] Appearance CLEAR CLEAR [facility] Specific [place] UA 1.009 1.001 - 1.035 [facility] pH UA 7.0 5.0 - 8.0 [facility] Glucose UA NEGATIVE NEGATIVE [facility] Bilirubin UA NEGATIVE NEGATIVE [facility] Ketone UA NEGATIVE NEGATIVE [facility] Blood UA NEGATIVE NEGATIVE [facility] Protein UA NEGATIVE NEGATIVE [facility] Nitrite NEGATIVE NEGATIVE [facility] Leukocyte Esterase NEGATIVE NEGATIVE [facility] WBC UA NONE SEEN < OR = 5 /HPF [facility] RBC UA NONE SEEN < OR = 2 /HPF [facility] Epithelial Cell UA 0-5 < OR = 5 /HPF [facility] Transitional Epithelial Cells [facility] Renal Epithelial Cells [facility] Bacteria UA NONE SEEN NONE SEEN /HPF [facility] Calcium Oxalate Crystals [facility] Triple Phosphate Crystals [facility] Uric Acid Crystals [facility] Amorphous UA [facility] Crystals UA [facility] Hyaline Casts NONE SEEN NONE SEEN /LPF [facility] Granular Casts [facility] Casts UA [facility] Yeast [facility] Comments [facility] Note See Below [facility] Comment: This urine was analyzed for the presence of WBC, RBC, bacteria, casts, and other formed elements. Only those elements seen were reported. Test Performed at: [facility] [address] SIRIA MOFFETT MD Urine MID-STREAM URINE SPECIMEN / Unknown 06/21/2024 7:58 AM SADDLE TREE STITCHER 06/21/2024 8:13 AM SADDLE TREE STITCHER Linda Pennington MD LAB - URINALYS IS ORDERABLES Performing Organization Address [facility] Co de Phone Number [address] [address] * C-REACTIVE PROTEIN (06/21/2024 7:58 AM SADDLE TREE STITCHER) Only the most recent of11 resultswithin the time period is included. C-Reactive Protein <5.0 <8.0 mg/L [facility] Comment: REPORT COMMENT: FASTING:YES Test Performed at: [facility] [employer] [address] [address] SIRIA MOFFETT MD Blood BLOOD SPECIMEN / Unknown 06/21/2024 7:58 AM SADDLE TREE STITCHER 06/21/2024 8:13 AM SADDLE TREE STITCHER Linda Pennington MD LAB - CHEMISTR Y ORDERABLES Performing Organization Address [facility] Co de Phone Number [address] [address] * ERYTHROCYTE SEDIMENTATION RATE (06/21/2024 7:58 AM SADDLE TREE STITCHER) Only the most recent of11 resultswithin the time period is included. Erythrocyte Sedimentation Rate Westergren 11 < OR = 20 mm/h [facility] Comment: Test Performed at: [facility] [address] SIRIA MOFFETT MD Blood BLOOD SPECIMEN / Unknown 06/21/2024 7:58 AM SADDLE TREE STITCHER 06/21/2024 8:13 AM SADDLE TREE STITCHER Linda Pennington MD LAB - HEMATOLO GY ORDERABLES Performing Organization Address [facility] Co de Phone Number [facility] [address] [place] [address] * CBC WITH DIFFERENTIAL (06/21/2024 7:58 AM SADDLE TREE STITCHER) Only the most recent of15 resultswithin the time period is included. White Blood Cell Count 5.4 3.8 - 10.8 Thousand/u L [facility] RBC 4.71 3.80 - 5.10 Million/uL [facility] Hemoglobin 14.2 11.7 - 15.5 g/dL [facility] Hematocrit 43.8 35.0 - 45.0 % [facility] MCV 93.0 80.0 - 100.0 fL [facility] MCH 30.1 27.0 - 33.0 pg [facility] MCHC 32.4 32.0 - 36.0 g/dL [facility] Comment: For adults, a slight decrease in the calculated MCHC value (in the range of 30 to 32 g/dL) is most likely not clinically significant; however, it should be interpreted with caution in correlation with other red cell parameters and the patient's clinical condition. RDW 12.6 11.0 - 15.0 % [facility] Platelet Count 342 140 - 400 Thousand/u L [facility] MPV 9.1 7.5 - 12.5 fL [facility] Neutrophil Absolute 3262 1500 - 7800 cells/uL [facility] Lymphocytes Absolute 1334 850 - 3900 cells/uL [facility] Absolute Monocytes 486 200 - 950 cells/uL [facility] Eosinophils Absolute 270 15 - 500 cells/uL [facility] Basophils Absolute 49 0 - 200 cells/uL [facility] Granulocytes % 60.4 % [facility] Lymphocytes % 24.7 % [facility] Monocytes % 9.0 % [facility] Eosinophils % 5.0 % [facility] Basophils % 0.9 % [facility] Comment: Test Performed at: [facility] [address] SIRIA MOFFETT MD Blood BLOOD SPECIMEN / Unknown 06/21/2024 7:58 AM SADDLE TREE STITCHER 06/21/2024 8:13 AM SADDLE TREE STITCHER Linda Pennington MD LAB - HEMATOLO GY ORDERABLES Performing Organization Address [facility]/ZIP Co de Phone Number [facility] [address] [place] [id number] * COMPREHENSIVE METABOLIC PANEL (06/21/2024 7:58 AM SADDLE TREE STITCHER) Only the most recent of15 resultswithin the time period is included. Glucose 85 65 - 99 mg/dL [facility] Comment: Fasting reference interval BUN 13 7 - 25 mg/dL [facility] Creatinine 0.56 0.50 - 0.99 mg/dL [facility] eGFR by Cystatin C 115 > OR = 60 mL/min/1. 73m2 [facility] BUN/Creatinine Ratio SEE NOTE: 6 - 22 (calc) [facility] Comment: Not Reported: BUN and Creatinine are within reference range. Sodium 136 135 - 146 mmol/L [facility] Potassium 4.1 3.5 - 5.3 mmol/L [facility] Chloride 102 98 - 110 mmol/L [facility] CO2 26 20 - 32 mmol/L [facility] Calcium 9.3 8.6 - 10.2 mg/dL [facility] Protein Total 7.2 6.1 - 8.1 g/dL [facility] Albumin 4.5 3.6 - 5.1 g/dL [facility] Globulin Total 2.7 1.9 - 3.7 g/dL (calc) [facility] Albumin/Globulin Ratio 1.7 1.0 - 2.5 (calc) [facility] Bilirubin Total 0.8 0.2 - 1.2 mg/dL [facility] Alkaline Phosphatase 72 31 - 125 U/L [facility] AST 16 10 - 30 U/L [facility] ALT 21 6 - 29 U/L [facility] Comment: Test Performed at: [facility] [address] SIRIA MOFFETT MD Blood BLOOD SPECIMEN / Unknown 06/21/2024 7:58 AM SADDLE TREE STITCHER 06/21/2024 8:13 AM SADDLE TREE STITCHER Linda Pennington MD LAB - CHEMISTR Y ORDERABLES [address] [address] * CULTURE URINE (11/05/2023 2:22 PM CDT) Only the most recent of3 resultswithin the time period is included. Pathologist [facility] Culture Urine 50,000-100,000 CFU/mL urogenital nneka AUDREY 11/07/2023 2:11 AM CDT [facility] Urine MID-STREAM URINE SPECIMEN / Unknown Collection / Unknown 11/05/2023 2:22 PM CDT 11/05/2023 3:17 PM CDT Linda Pennington MD LAB - MICROBIO LOGY ORDERABLES [facility] [address] [place] [address], [facility] [phone] * CK BLOOD (11/05/2023 2:15 PM CDT) Only the most recent of10 resultswithin the time period is included. [facility] CK Total 99 30 - 200 U/L 11/05/2023 3:[address] [facility] Blood BLOOD SPECIMEN / Unknown Lab Venipuncture / Unknown 11/05/2023 2:15 PM CDT 11/05/2023 2:32 PM CDT Linda Pennington MD LAB - CHEMISTR Y ORDERABLES [facility] [address] [place] [address], [facility] [phone] * ALDOLASE (06/10/2023 9:27 AM SADDLE TREE STITCHER) Only the most recent of8 resultswithin the time period is included. [facility] Aldolase 3.2 < OR = 8.1 U/L [facility] Comment: Test Performed at: [facility] [address] [place] [address] SIRIA MOFFETT MD Blood BLOOD SPECIMEN / Unknown 06/10/2023 9:27 AM SADDLE TREE STITCHER 06/10/2023 9:28 AM SADDLE TREE STITCHER Linda Pennington MD LAB - CHEMISTR Y ORDERABLES [facility] [employer] [facility] [address] [place] [address] * LDH BLOOD (06/10/2023 9:27 AM SADDLE TREE STITCHER) Only the most recent of6 resultswithin the time period is included. [facility] LD-Total 114 100 - 200 U/L [facility] Comment: Test Performed at: [employer] [address] SIRIA MOFFETT MD Blood BLOOD SPECIMEN / Unknown 06/10/2023 9:27 AM SADDLE TREE STITCHER 06/10/2023 9:28 AM SADDLE TREE STITCHER Linda Pennington MD LAB - CHEMISTR Y ORDERABLES Performing Organization Address [facility]/ZIP Co de Phone Number [address] [address] * CKMB (12/16/2022 1:13 PM CDT) [facility] CK-MB (CK2) 1.2 0 - 5.0 ng/mL [employer] Comment: Test Performed at: [facility] [facility] [place] [address] [place] [address] SIRIA MOFFETT MD 12/16/2022 1:13 PM CDT 12/16/2022 1:16 PM CDT Linda Pennington MD LAB - CHEMISTR Y ORDERABLES Performing Organization Address [facility] de Phone Number [address] [address] * (ABNORMAL) MYOSITIS ANTIBODY PANEL COMPREHENSIVE (11/05/2022 3:44 PM CDT) Only the most recent of3 resultswithin the time period is included. [facility] SAE1 (SUMO activating enzyme) Ab Negative Negative 11/12/2022 7:11 PM CDT [facility] ([facility]) NXP2 (Nuclear matrix protein-2) Ab Low Positive(A ) Negative 11/12/2022 7:11 PM CDT [facility] ([facility]) Comment: Low positive reactivity to nuclear matrix protein (NXP2) detected. Strong clinical correlation is recommended. MDA5 (CADM-140) Ab Negative Negative 2022 7:11 PM CDT [facility] ([facility]) TIF-1 gamma (155 kDa) Ab Negative Negative 11/12/2022 7:11 PM CDT [facility] ([facility]) Myositis Panel Interpretive Data See Note 11/12/2022 7:11 PM CDT [facility] ([facility]) Comment: INTERPRETIVE INFORMATION: Extended Myositis [...] . . . . . . X Patton/INWEAVER (COURT) Ab, IgG . . . . [...] . . . . X Fibrillarin (U3 INWEAVER) Ab, IgG . . . . . [...] developed and its performance characteristics determined by [employer]. It has not been cleared or approved by the US Food and Drug Administration. This test was performed in a CLIA certified laboratory and is intended for clinical purposes. Mi-2 Antibody Negative Negative 11/12/2022 7:11 PM CDT [facility]) P155/140 Antibody Negative Negative 023 7:11 PM CDT [facility] ([facility]) PL-12 Antibody Negative Negative 11/12/2022 7:11 PM CDT [facility] ([facility]) PL-7 Antibody Negative Negative 11/12/2022 7:11 PM CDT [facility] ([facility]) OJ Antibody Negative Negative 11/12/2022 7:11 PM CDT [facility] ([facility]) EJ Antibody Negative Negative 11/12/2022 7:11 PM CDT [facility] ([facility]) SRP Antibody Negative Negative 11/12/2022 7:11 PM CDT [facility] ([facility]) Makayla-1 Antibody IgG 7 0 - 40 AU/mL 11/12/2022 7:11 PM CDT [facility] ([facility]) Comment: INTERPRETIVE INFORMATION: Makayla-1 Antibody, IgG 29 AU/mL or less.........Negative 30-40 AU/mL..............Equivocal 41 AU/mL or greater......Positive Presence of Makayla-1 (antihistidyl transfer RNA [t-RNA] synthetase) antibody is associated with polymyositis and may also be seen in patients with dermatomyositis. Makayla-1 antibody is associated with pulmonary involvement (interstitial lung disease), Raynaud phenomenon, arthritis, and elevator mechanic's hands (implicated in antisynthetase syndrome). KU Antibody Negative Negative 11/12/2022 7:11 PM CDT [facility] ([facility]) Patton/INWEAVER (COURT) Antibody IgG 2 0 - 19 Units 11/12/2022 7:11 PM CDT [facility] ([facility]) Comment: INTERPRETIVE INFORMATION: Patton/INWEAVER (COURT) Antibody, IgG 19 Units or Less ............. Negative 20 to 39 Units ............... Weak Positive 40 to 80 Units ............... Moderate Positive 81 Units or greater .......... Strong Positive Patton/INWEAVER antibodies are frequently seen in patients with mixed connective tissue disease (MCTD) and are also associated with other systemic autoimmune rheumatic diseases (SARDs) such as systemic lupus erythematosus (SLE), systemic sclerosis, and myositis. Antibodies targeting the Patton/INWEAVER antigenic complex also recognize Patton antigens, therefore, the Patton antibody response must be considered when interpreting these results. PM/Scl 100 Antibody IgG Negative Negative 11/12/2022 7:11 PM CDT [facility] ([facility]) Comment: INTERPRETIVE INFORMATION: PM/Scl-100 Antibody, [...] developed and its performance characteristics determined by [employer]. It has not been cleared or approved by the US Food and Drug Administration. This test was performed in a CLIA certified laboratory and is intended for clinical purposes. SS-A 52 Antibody 5 0 - 40 AU/mL 11/12/2022 7:11 PM CDT [email or web address] ([facility]) Comment: INTERPRETIVE INFORMATION: SSA-52 (Ro52) [...] - 40 AU/mL 11/12/2022 7:11 PM CDT [facility] ([facility]) Comment: REFERENCE INTERVAL: SSA-60 (Ro60) (COURT) Antibody, IgG 29 AU/mL or Less ............. Negative 30 - 40 AU/mL ................ Equivocal 41 AU/mL or Greater .......... Positive Fibrillarin (U3 INWEAVER) Antibody IgG Negative Negative 11/12/2022 7:11 PM CDT [facility] ([facility]) Comment: Interpretive Information: Fibrillarin (U3 INWEAVER) Antibody, IgG The presence of fibrillarin (U3-INWEAVER) IgG antibodies in association with an BENNETT [...] a multi-ethnic cohort of [facility]Sc patients (n=98), U3-INWEAVER antibodies detected by immunoblot had an agreement of 98.9 percent with the gold standard immunoprecipitation (IP) assay. Approximately 71 percent (5/7) of the borderline U3-INWEAVER results with BENNETT nucleolar pattern in this cohort were IP negative. This test was developed and its performance characteristics determined by [employer]. It has not been cleared or approved by the US Food and Drug Administration. This test was performed in a CLIA certified laboratory and is intended for clinical purposes. Performed by [facility], [address] [place] [id number] [email or web address], Jax Mitchell MD, PHD, Lab. Director Blood BLOOD SPECIMEN / Unknown Lab Venipuncture / Unknown 11/05/2022 3:44 PM CDT 11/05/2022 4:04 PM CDT Linda Pennington MD LAB - CHEMISTR Y ORDERABLES [facility] ([facility]) [address] [place] [address], [facility] * CULTURE URINE REFLEXED II (06/17/2022 9:41 AM SADDLE TREE STITCHER) Only the most recent of2 resultswithin the time period is included. Reflexive Urine Culture See Below [facility] Comment: CULTURE INDICATED - RESULTS TO FOLLOW Test Performed at: [address] [address] SIRIA MOFFETT MD 06/17/2022 9:41 AM SADDLE TREE STITCHER 06/17/2022 9:42 AM SADDLE TREE STITCHER Linda Pennington MD LAB - MICROBIO LOGY ORDERABLES Performing Organization Address City/[facility]/ZIP Co de Phone Number [address] [address] * OCT (01/15/2022 9:53 AM CDT) Anatomical [...] <0.010 <0.032 ng/mL 12/18/2021 8:[address] [facility] Blood BLOOD SPECIMEN / Unknown Venipuncture / Unknown 12/18/2021 8:05 PM CDT 12/18/2021 8:09 PM CDT Dmitriy Goff PA-C LAB - CHEMISTRY ORDE [facility] [address] [place] [phone] [phone] * XR CHEST PA AND LATERAL (12/18/2021 12:27 PM CDT) Anatomical Region Laterality Modality Chest Radiographic Shalini ging 12/18/2021 1:05 PM CDT Impressions 12/18/2021 1:22 PM CDT IMPRESSION: No acute cardiopulmonary process. > Dictated by Angelica Piper MD (transporter radiology). Claribel Danielle MD have personally reviewed [...] process. > Dictated by Angelica Piper MD (transporter radiology). Claribel Danielle MD have personally reviewed and interpreted this examination/study. > Interpreting Provider: Claribel Paula MD on 12/18/2021 1:22 PM Dmitriy Goff PA-C DIAGNOSTIC IMAGING O RDERABLES * SARS-COV-2 (COVID-19) RAPID (12/18/2021 12:11 PM CDT) COVID-19 PCR Not detected Not detected 12/19/19 1:[address] [facility] Microbiology SPECIMEN FROM NASOPHARYNGEAL STRUCTURE / Unknown Collection / Unknown 12/18/2021 12:11 PM CDT 12/18/2021 12:17 PM CDT Narrative [facility] - 12/18/2021 1:01 PM CDT The [...] Goff PA-C LAB - MICROBIOLOGY O RDERABLES [facility] [address] [place] [phone], [facility] [phone] * HCG BETA BLOOD QUANTITATIVE (12/18/2021 12:11 PM CDT) Beta-hCG Total Quantitative <3 mIU/mL 12/18/2021 1:03 PM CDT [facility] Comment: This assay is cleared for [...] Dmitriy Goff PA-C LAB - CHEMISTRY ORDE RABLES [facility] [address] [place] [address], [facility] [phone] * (ABNORMAL) URINALYSIS REFLEX TO MICROSCOPIC NO CULTURE (12/18/2021 12:04 PM CDT) Color UA Yellow Straw, Yellow 12/18/2021 12:29 PM [facility] Clarity UA Slt Cloudy(A) Clear 12/18/2021 12:29 PM [facility] Specific [place] UA 1.008 1.005 - 1.030 12/18/2021 12:29 PM [facility] pH UA 8.0 5.0 - 8.0 pH 12/18/2021 12:29 PM [facility] Protein UA Negative Negative 12/18/2021 12:29 PM [facility] Glucose UA Negative Negative 12/18/2021 12:29 PM [facility] Ketone UA Negative Negative 12/18/2021 12:29 PM [facility] Bilirubin UA Negative Negative 12/18/2021 12:29 PM [facility] Blood UA 1+(A) Negative 12/18/2021 12:29 PM [facility] Nitrite UA Negative Negative 12/18/2021 12:29 PM [facility] Leukocyte Esterase Negative Negative 12/18/2021 12:29 PM [facility] Urobilinogen UA Negative Negative mg/dL 12/18/2021 12:29 PM [facility] RBC UA 0-2 None Seen, 0-2, 3-5 /HPF 12/18/2021 12:29 PM [facility] WBC UA 0-5 None Seen, 0-5 /HPF 12/18/2021 12:29 PM [facility] Squamous Epithelial Cells UA 6-10(A) None Seen, 0-2, 3-5 /HPF 12/18/2021 12:29 PM [facility] Mucus UA 1+ /LPF 12/18/2021 12:29 PM [facility] Urine URINE SPECIMEN OBTAINED BY CLEAN CATCH PROCEDURE / Unknown Collection / Unknown 12/18/2021 12:04 PM CDT 12/18/2021 12:[address] [facility] - 12/18/2021 12:29 PM CDT Dmitriy Goff PA-C LAB - URINALYSIS ORD ERABLES Performing Organization Address [facility] Co de Phone Number [facility] [address] [place] [address], [facility] [phone] * EKG 12-LEAD (12/18/2021 11:52 AM CDT) Ventricular Rate 71 BPM [facility] MUSE Atrial Rate 71 BPM [facility] P-R Interval 152 ms [facility] QRS Duration ms [address] [facility] MUSE Q-T Interval ms [address] [facility] MUSE QTC Calculation (Bezet) 430 ms [facility] MUSE Calculated P Vashon 79 degrees [facility] MUSE Calculated R [place] 82 degrees [facility] MUSE Calculated T [place] [address] [facility] MUSE Interpretation EKG NORMAL SINUS RHYTHM LOW VOLTAGE QRS BORDERLINE ECG NO PREVIOUS ECGS AVAILABLE Confirmed by Freedom Pineda ([id number]) on 12/18/2021 9:27:[address] [facility] MUSE 12/18/2021 11:5 2 AM CDT 12/18/2021 9:27 PM CDT Dmitriy Goff PA-C ECG ORDERABLES Performing Organization Address [facility] de Phone Number [facility] * FL SWALLOWING FUNCTION STUDY (12/13/2021 3:08 PM CDT) Anatomical Region Laterality Modality Chest Radiographic Shalini ging 12/14/2021 9:52 AM CDT Narrative 12/14/2021 10:43 AM CDT PROCEDURE: FL SWALLOWING FUNCTION STUDY, DATE/TIME OF EXAM: 12/13/2021 4:02 PM, LOCATION [facility] INDICATION: R13.12: Oropharyngeal dysphagia COMPARISON: None. FLUOROSCOPY DOSE: 17 mGy Reference air kerma (ka,r). FLUOROSCOPY TIME: 3.05 minutes; Number of images: 1944 TECHNIQUE: Modified barium swallow fluoroscopy performed in conjunction with speech pathology staff. The speech pathologist administered varying thickness barium liquids and solids under direct Cine fluoroscopy. FINDINGS/IMPRESSION: Fluoroscopic assistance was provided for a modified barium swallow test performed by Speech Therapy. Please see the Speech Therapy report for details. Report dictated by Pietro Issa MD (transporter radiology). Claribel Danielle MD have personally reviewed and interpreted this examination/study. > Interpreting Provider: Claribel Paula MD on 12/14/2021 10:43 AM Procedure Note Claribel Paula MD - 12/14/2021 PROCEDURE: FL SWALLOWING FUNCTION STUDY, DATE/TIME OF EXAM: 12/13/2021 4:02 PM, LOCATION [facility] INDICATION: R13.12: Oropharyngeal dysphagia COMPARISON: None. FLUOROSCOPY DOSE: 17 mGy Reference air kerma (ka,r). FLUOROSCOPY TIME: 3.05 minutes; Number of images: 1944 TECHNIQUE: Modified barium swallow fluoroscopy performed in conjunction with speech pathology staff. The speech pathologist administered varying thickness barium liquids and solids under direct Cine fluoroscopy. FINDINGS/IMPRESSION: Fluoroscopic assistance was provided for a modified barium swallow test performed by Speech Therapy. Please see the Speech Therapy report for details. Report dictated by Pietro Issa MD (transporter radiology). Claribel Danielle MD have personally reviewed and interpreted this examination/study. > Interpreting Provider: Claribel Paula MD on 12/14/2021 10:43 AM Linda Pennington MD FLUOROSCOPY OR DERABLES * COMPLETE PFT W/WO BRONCHODILATOR (08/20/2021 4:37 PM CDT) Impressions Aime Almaguer MD - 08/20/2021 4:37 PM CDT [facility] DEPARTMENT OF PULMONARY, CRITICAL CARE, AND SLEEP [...] of Pulmonary, Critical Care, & Sleep Medicine [facility] I have reviewed this study and agree with the interpretation by the Aircraft Engine Mechanic. Aime Almaguer M.D. Admittance Attendant of Internal Medicine Division of Pulmonary, Critical Care and Sleep Medicine [facility] Narrative Aime Almaguer MD - 08/20/2021 4:37 PM CDT Dalial Juan MD 08/24/2021 3:40 PM Salbador Choudhary MD RESPIRATORY THERAPY ORDERABLES * (ABNORMAL) MYOSITIS 11 ANTIBODY PNL (01/15/2021 12:43 PM CDT) Makayla-1 Antibody <11 <[address] [facility] [address]-7 Antibody <11 <[address] [address]-12 Antibody <11 <11 [facility] EJ Antibody <11 <11 [facility] OJ Antibody <11 <11 [facility] SRP Antibody <11 <11 [facility] CA-2 Alpha Antibody <11 <11 [facility] CA-2 Beta Antibody <11 <11 [facility] MDA-5 [...] been made. MDA5 antibody, formerly known as [id number] antibody, has been identified in clinically amyopathic [...] analytical performance characteristics have been determined by [employer]. They have not been cleared or approved by the FDA. These assays have been validated pursuant to the CLIA regulations and are used for clinical purposes. Test Performed at: [employer] [facility] [facility] [address] [place] [address] LKUE GOMEZ MD Blood BLOOD SPECIMEN / Unknown 01/15/2021 12:43 PM CDT 01/15/2021 12:44 PM CDT Linda Pennington MD LAB - SEROLOGY ORDERABLES [employer] [address] [place] [address] * Corneal Topography (01/15/2021 10:43 AM CDT) [...] BREATH TEST ACQUIRE ANALYZE (05/31/2020 11:11 AM SADDLE TREE STITCHER) Anatomical Region Laterality Modality Nuclear Medicine 06/02/2020 12:4 2 PM SADDLE TREE STITCHER Impressions 06/02/2020 4:17 PM SADDLE TREE STITCHER Impression: Negative Urea Breath Test for H.pylori. This report was approved by Diallo Manuel on 06/02/2020 3:48 PM . I, Dr. AJ SHER D.O. have personally reviewed and interpreted this examination/study. This report was electronically signed by AJ SHER D.O. on 06/02/2020 4:17 PM . Narrative 06/02/2020 4:17 PM SADDLE TREE STITCHER PROCEDURE: Urea Breath Test- C-14. HISTORY: 39-year-old [...] collected and the sample was sent to [facility]. These test results are reported upon receiving from outside laboratory. Results are reported as disintegrations per minute (DPM): Positive = +200 DPM. Negative = 0-49 DPM. Indeterminate = 50-199 DPM. RESULT: 30; DPM. Procedure Note Aj Sher DO - 06/02/2020 PROCEDURE: Urea Breath Test- [...] collected and the sample was sent to [facility]. These test results are reported upon receiving [...] AJ SHER D.O. on06/02/2020 4:17 PM . July Mendieta MD NM ORDERABLES * PATHOLOGY TISSUE (04/04/2020 12:19 PM SADDLE TREE STITCHER) Case Report Surgical Pathology Report Case: [id number] Authorizing Provider: July Mendieta MD Collected: 04/04/2020 12:19 PM Ordering Location: [facility] Received: 04/04/2020 01:20 PM Pathologist: Pennie Heard MD Specimen: Gastric, random gastric biopsies 04/05/2020 1:34 PM SADDLE TREE STITCHER [facility] Final Diagnosis Stomach, random, biopsy (A): - Chronic active gastritis with H. pylori organisms 04/05/2020 1:34 PM SADDLE TREE STITCHER [facility] Microscopic Description and Comment Microscopic examination substantiates the final diagnosis. 04/05/2020 1:34 PM [facility] Clinical History The patient is a 39 year old woman who presented with weight loss. Operative procedure/findings: EGD - normal stomach, biopsied. 04/05/2020 1:34 PM [facility] Gross Description The requisition and specimen(s) are labeled with the patient's name, Jeanie Collado. Received in formalin, specimen A , are 2 yellow-collazo tissue fragments measuring 0.3 x 0.1 x 0.1 cm and 0.4 x 0.2 x 0.1 cm. Specimen is submitted in toto in cassette A1. KK 04/05/2020 1:34 PM [facility] Disclaimer The performance characteristics of all immunohistochemical and indirect immunofluorescence stains (if any) cited in this report were determined by the Histopathology Laboratory of [facility]. Some of these tests were developed by [...] the attending (teaching) pathologist. 04/05/2020 1:34 PM [facility] Embedded Images 04/05/2020 1:34 PM [facility] Biopsy, NOS GASTRIC CONTENTS SPECIMEN / Unknown 04/04/2020 12:19 PM SADDLE TREE STITCHER 04/04/2020 1:20 PM SADDLE TREE STITCHER Comment:Pre-op diagnosis: Dermatomyositis [M33.90] Weight loss [R63.4] Abdominal pain, unspecified abdominal location [R10.9] July Mendieta MD LAB - PATHOLOGY/CY TOLOGY ORDERABLES [facility] [address] [place] [address], [facility] [phone] * ENDOSCOPY, COLON, DIAGNOSTIC (04/04/2020 12:03 PM SADDLE TREE STITCHER) Report Endoscopy POC Endoscopy Department Report _ [...] non-aguilar portions. Procedure Code(s): --- Professional --- 70594, Colonoscopy, flexible; diagnostic, including collection of specimen(s) by brushing or washing, when performed (separate procedure) Diagnosis Code(s): --- Professional --- R63.4, Abnormal weight loss CPT copyright 2019 [employer]. All rights reserved. The codes documented in this report are preliminary and upon solar thermal installer review may be revised to meet current compliance requirements. July Mendieta MD 04/04/2020 12:59:14 PM Note Initiated On: 04/04/2020 12:03 PM Number of Addenda: [phone] [place] [address] [employer]ATION 04/04/2020 12:0 3 PM SADDLE TREE STITCHER Fermin Jones MD GI PRO CEDURE ORDERABLES [facility] [employer] * EGD (04/04/2020 11:57 AM SADDLE TREE STITCHER) Report Endoscopy POC Endoscopy Department Report __ _ Patient Name: Jeanie Collado Procedure Date: 04/04/2020 11:57 AM Date of : 1980 Classification: Outpatient Gender: Female Ethnicity: or Race: White __ _ Providers: July Mendieta MD, Denys Jones (Fellow) Referring MD: Tasha Perze (Referring MD) Procedure: Upper GI endoscopy Indications: [...] non-aguilar portions. Procedure Code(s): --- Professional --- 52752, Esophagogastroduode noscopy, flexible, transoral; with biopsy, single or multiple Diagnosis Code(s): --- Professional --- R63.4, Abnormal weight loss CPT copyright 2019 [employer]. All rights reserved. The codes documented in this report are preliminary and upon solar thermal installer review may be revised to meet current compliance requirements. ___ July Mendieta MD 04/04/2020 12:58:42 PM Note Initiated On: 04/04/2020 11:57 AM Number of Addenda: [address] 04/04/2020 11:5 7 AM SADDLE TREE STITCHER Fermin Jones MD GI PRO CEDURE ORDERABLES Performing Organization Address City/[facility] Co de Phone Number [facility] * HCG URINE QUALITATIVE - POCT (IP) INTERFACED (04/04/2020 11:14 AM SADDLE TREE STITCHER) HCG Qual Urine Negative Negative 04/04/2020 11:[address] [facility] Urine URINE / Unknown 04/04/2020 1 1:14 AM SADDLE TREE STITCHER 04/04/2020 11:21 AM SADDLE TREE STITCHER July Mendieta MD LAB - POINT OF CAR E ORDERABLES Performing Organization Address [facility]/State/ZIP Co de Phone Number [facility] [address] [place] [phone], [facility] [phone] * HCG URINE QUAL POCT NOTIFICATION (04/04/2020 11:03 AM SADDLE TREE STITCHER) Comment Notification Label Only - See Separate Report 04/04/2020 12:30 PM SADDLE TREE STITCHER [facility] Urine URINE / Unknown 04/04/2020 1 1:03 AM SADDLE TREE STITCHER 04/04/2020 11:04 AM SADDLE TREE STITCHER July Mendieta MD LAB - URINALYSIS O RDERABLES [address] [address], [facility] [phone] * (ABNORMAL) URINALYSIS W/MICROSCOPIC NO CULTURE (01/31/2020 12:23 PM CDT) Only the most recent of2 resultswithin the time period is included. Color UA Yellow Straw, Yellow, Colorless 01/31/2020 12:46 PM [facility] Clarity UA Clear Clear, Slt Cloudy 01/31/2020 12:46 PM [facility] Specific [place] UA 1.008 1.005 - 1.030 01/31/2020 12:46 PM [facility] pH UA 6.0 5.0 - 8.0 pH 01/31/2020 12:46 PM [facility] Protein UA Negative Negative mg/dL 01/31/2020 12:46 PM [facility] Glucose UA Negative Negative mg/dL 01/31/2020 12:46 PM [facility] Ketone UA Negative Negative mg/dL 01/31/2020 12:46 PM [facility] Bilirubin UA Negative Negative mg/dL 01/31/2020 12:46 PM [facility] Blood UA 3+(A) Negative 01/31/2020 12:46 PM [facility] Nitrite UA Negative Negative 01/31/2020 12:46 PM [facility] Leukocyte Esterase 1+(A) Negative 01/31/2020 12:46 PM [facility] Urobilinogen UA Negative Negative mg/dL 01/31/2020 12:46 PM CDT [facility] RBC UA 51-100(A) None Seen, 0-2, 3-5 /HPF 01/31/2020 12:46 PM CDT [facility] WBC UA 21-50(A) None Seen, 0-5 /HPF 01/31/2020 12:46 PM CDT [facility] Squamous Epithelial Cells UA 3-5(A) None Seen, 0-2 /HPF 01/31/2020 12:46 PM CDT [facility] Urine URINE SPECIMEN OBTAINED BY CLEAN CATCH PROCEDURE / Unknown Collection / Unknown 01/31/2020 12:23 PM CDT 01/31/2020 12:30 PM CDT Narrative [facility] - 01/31/2020 12:46 PM CDT Neena Jo MD LAB - URINALYSIS ORD ERABLES [address] [address], [facility] [phone] * TSH (01/31/2020 12:22 PM CDT) TSH 1.586 0.350 - 4.940 uIU/mL 01/31/2020 1:15 PM CDT [facility] Blood BLOOD SPECIMEN / Unknown Lab Venipuncture / Unknown 01/31/2020 12:22 PM CDT 01/31/2020 12:31 PM CDT Neena Jo MD LAB - CHEMISTRY ORDE RABLES [address] [address], [place] [phone] * T4 FREE (01/31/2020 12:22 PM CDT) T4 Free 1.0 0.7 - 1.5 ng/dL 01/31/2020 1:15 PM CDT [facility] Blood BLOOD SPECIMEN / Unknown Lab Venipuncture / Unknown 01/31/2020 12:22 PM CDT 01/31/2020 12:31 PM CDT Neena Jo MD LAB - CHEMISTRY [address] [place] [address] [place] [address], [facility] [phone] * OCT (01/10/2020 7:25 AM CDT) Anatomical Region Laterality Modality Other 01/10/2020 7:25 AM CDT Christine Neena Loera OD OPHTHALMOLOGY SERVIC ES ORDERABLES * CT CHEST ABDOMEN PELVIS W CONT (12/31/2019 11:49 AM CDT) Anatomical Region Laterality Modality Chest, Abdomen, Pelvis Computed Tomography 12/31/2019 1:34 PM CDT Impressions 12/31/2019 5:06 PM CDT IMPRESSION: 1. Uterine cervix appears thickened and hypoattenuating. Gynecological evaluation recommended. Dictated by Anuel Hodges MD (transporter radiology). I, Dr. FRANSICO NASH have personally [...] evaluation recommended. Dictated by Anuel Hodges MD (transporter radiology). I, Dr. FRANSICO NASH have personally reviewed and interpreted this examination/study. This report was electronically signed by FARNSICO NASH on 12/31/2019 5:06 PM. Linwood Valles MD CT ORDERABLES * CREATININE - POCT INTERFACED (12/31/2019 11:40 AM CDT) Creatinine POCT 0.41 0.30 - 1.30 mg/dL 12/31/2019 11:58 AM CDT [facility] eGFR >60 >60 mL/min/1.7 3 m2 12/31/2019 11:58 AM CDT [facility] Blood BLOOD SPECIMEN / Unknown 12/31/2019 11:40 AM CDT 12/31/2019 11:58 AM CDT Linwood Valles MD LAB - POINT OF CARE ORDERABLES Performing Organization Address City/State/[facility] Co de Phone Number [facility] [address] [place] [phone], [facility] [phone] * XR KNEE RIGHT 2VW OR LESS [...] VON WILLEBRAND ANTIGEN (12/09/2019 4:04 PM CDT) [facility] von Willebrand Factor Antigen 104 50 - 280 U/dL 12/09/2019 4:[address] [facility]OR[facility] Comment: Biologic population variability within the [...] Pennington MD LAB - COAGULAT ION ORDERABLES [address] [address], [facility] [phone] * SCLERODERMA COMPREHENSIVE AB PANEL (11/16/2019 9:28 AM CDT) BENNETT HEp-2 IgG <1:80 <1:80 11/19/2019 7:42 AM CDT [facility] ([facility]) BENNETT Interpretive Comment See Note 11/19/2019 7:42 AM CDT [facility] ([facility]) Comment: Antinuclear antibodies by IFA [...] 0 - 40 AU/mL 11/19/2019 7:42 AM CDT [facility] ([facility]) Comment: INTERPRETIVE INFORMATION: Scleroderma (Scl-70) [...] sera of SLE patients may bind to washington-I, leading to a false-positive result. The presence [...] testing for centromere, RNA polymerase III and U3-INWEAVER, PM/Scl, or Th/To antibodies. RNA Polymerase 3 Antibody IgG 4 0 - 19 Units 11/19/2019 7:42 AM [facility] ([facility]) Comment: INTERPRETIVE INFORMATION: RNA Polymerase [...] antibodies associated with SSc, including centromere, Scl-70, U3-INWEAVER, PM/Scl, or Th/To. Patton/INWEAVER (COURT) Antibody IgG 15 0 - 40 AU/mL 11/19/2019 7:42 AM [facility]) Comment: INTERPRETIVE INFORMATION: Patton/INWEAVER (COURT) Antibody, IgG 29 AU/mL or Less ............. Negative 30 - 40 AU/mL ................ Equivocal 41 AU/mL or Greater .......... Positive Patton/INWEAVER antibodies are frequently seen in patients with mixed connective tissue disease (MCTD) and are also associated with other systemic autoimmune rheumatic diseases (SARDs) such as systemic lupus erythematosus (SLE), systemic sclerosis, and myositis. Antibodies targeting the Patton/INWEAVER antigenic complex also recognize Patton antigens, therefore, the Patton antibody response must be considered when interpreting these results. PM/Scl 100 Antibody IgG Negative Negative 11/19/2019 7:42 AM CDT [facility] ([facility]) Comment: INTERPRETIVE INFORMATION: PM/Scl-100 Antibody, [...] occur. Test developed and characteristics determined by [facility]. See Compliance Statement D: [employer]/CS Fibrillarin (U3 INWEAVER) Antibody IgG Negative Negative 11/19/2019 7:42 AM CDT [facility] ([facility]) Comment: Interpretive Information: Fibrillarin (U3 INWEAVER) Antibody, IgG The presence of fibrillarin (U3-INWEAVER) IgG antibodies in association with an BENNETT [...] a multi-ethnic cohort of SSc patients (n=98), U3-INWEAVER antibodies detected by immunoblot had an agreement of 98.9 percent with the gold standard immunoprecipitation (IP) assay. Approximately 71 percent (5/7) of the borderline U3-INWEAVER results with BENNETT nucleolar pattern in this cohort were IP negative. Test developed and characteristics determined by [facility]. See Compliance Statement D: [email or web address] Performed By: [facility] [address] [place] [address] After School Program Director: Lance Sandoval MD, MS Blood BLOOD SPECIMEN / Unknown Lab Venipuncture / Unknown 11/16/2019 9:28 AM CDT 11/16/2019 10:24 AM CDT Salbador Choudhary MD LAB - SEROLOGY ORDER ANDREINA [facility] ([facility]) [address] * SS-A (SJOGREN'S) 52+60 ANTIBODIES (11/16/2019 9:28 AM CDT) SS-A 52 Antibody 4 0 - 40 AU/mL 11/18/2019 6:32 AM CDT [facility] ([facility]) Comment: INTERPRETIVE INFORMATION: SSA-52 (Ro52) [...] - 40 AU/mL 11/18/2019 6:32 AM CDT [facility] ([facility]) Comment: REFERENCE INTERVAL: SSA-60 (Ro60) (COURT) Antibody, IgG 29 AU/mL or Less ............. Negative 30 - 40 AU/mL ................ Equivocal 41 AU/mL or Greater .......... Positive Performed By: [facility] [address] [place] [address] After School Program Director: Lance Sandoval MD, MS Blood BLOOD SPECIMEN / Unknown Lab Venipuncture / Unknown 11/16/2019 9:28 AM CDT 11/16/2019 10:25 AM CDT Salbador Choudhary MD LAB - CHEMISTRY SHANKAR KATE Performing Organization Address City/[facility]/ZIP Co de Phone Number [facility]) [address] [place] [address] * PATTON (SM) ANTIBODY COURT (11/16/2019 9:28 AM CDT) Pathologist [facility] Patton (COURT) Antibody 2 0 - 40 AU/mL 11/18/2019 6:32 AM CDT [facility] ([facility]) Comment: INTERPRETIVE INFORMATION: Patton (COURT) [...] associations with SLE clinical manifestations. Performed By: [facility] [address] [place] [address] After School Program Director: Lance Sandoval MD, MS Blood BLOOD SPECIMEN / Unknown Lab Venipuncture / Unknown 11/16/2019 9:28 AM CDT 11/16/2019 10:25 AM CDT Salbador Choudhary MD LAB - CHEMISTRY SHANKAR KATE Performing Organization Address City/[facility]/ZIP Co de Phone Number [facility] ([facility]) [address] [place] [address] * RHEUMATOID FACTOR BLOOD QUANTITATIVE (11/16/2019 9:28 AM CDT) Pathologist [facility] Rheumatoid Factor 16 <30 IU/mL 11/16/2019 1:[address] [facility] Blood BLOOD SPECIMEN / Unknown Lab Venipuncture / Unknown 11/16/2019 9:28 AM CDT 11/16/2019 10:25 AM CDT Salbador Choudhary MD LAB - CHEMISTRY SHANKAR KATE [address] [phone] [phone] * BENNETT BLOOD SCREEN W/REFLEX TITER (11/16/2019 9:28 AM CDT) BENNETT IgG None Detected None Detected 11/18/2019 3:12 PM CDT [facility] ([facility]) Comment: If suspicion of connective tissue disease is strong and BENNETT EIA is negative, consider testing for BENNETT by IFA ([id number]). INTERPRETIVE INFORMATION: Anti-Nuclear Antibodies (BENNETT), IgG by STACEY Antinuclear Antibodies (BENNETT), IgG by STACE[facility]: BENNETT specimens are screened using enzyme-linked immunosorbent assay (STACEY) methodology. All STACEY results reported as Detected are further tested by indirect fluorescent assay (IFA) using HEp-2 substrate with an IgG-specific conjugate. The BENNETT STACEY screen is designed to detect antibodies against dsDNA, histones, SS-A (Ro), SS-B (La), Patton, Patton/INWEAVER, Scl-70, Makayla-1, centromeric proteins, other antigens extracted from the HEp-2 cell nucleus. BENNETT STACEY assays have been reported to have lower sensitivities than BENNETT IFA for systemic autoimmune rheumatic diseases (SARD). Negative results do not necessarily rule out SARD. Performed By: [facility] [address] [place] [address] After School Program Director: Lance Sandoval MD, MS Blood BLOOD SPECIMEN / Unknown Lab Venipuncture / Unknown 11/16/2019 9:28 AM CDT 11/16/2019 10:25 AM CDT Salbador Choudhary MD LAB - CHEMISTRY SHANKAR KATE [facility]) [address] * SS-B (SJOGREN'S) ANTIBODY (11/16/2019 9:28 AM CDT) SS-B Antibody 1 0 - 40 AU/mL 11/18/2019 6:32 AM CDT [facility] ([facility]) Comment: INTERPRETIVE INFORMATION: SSB (La) [...] (PSS) also have this antibody. Performed By: [facility] [employer] [address] [place] [address] After School Program Director: Lance Sandoval MD, MS Blood BLOOD SPECIMEN / Unknown Lab Venipuncture / Unknown 11/16/2019 9:28 AM CDT 11/16/2019 10:25 AM CDT Salbador Choudhary MD LAB - CHEMISTRY SHANKAR KATE [facility]) [address] [place] [address], [facility] * DNA ANTIBODY DOUBLE STRANDED (11/16/2019 9:28 AM CDT) [facility] dsDNA Antibody None Detected None Detected 11/18/2019 4:55 PM CDT [facility] ([facility]) Comment: INTERPRETIVE INFORMATION: Double-Stranded DNA [...] recommendations for testing may be found at http://www.[employer].com/Topics/AutoimmuneDz/ConnectiveTissueDz/i ndex.html. Performed By: [facility] [address] [place] [address] After School Program Director: Lance Sandoval MD, MS Blood BLOOD SPECIMEN / Unknown Lab Venipuncture / Unknown 11/16/2019 9:28 AM CDT 11/16/2019 10:25 AM CDT Salbador Choudhary MD LAB - HEMATOLOGY ORD ERARICHARD Performing Organization Address City/[facility]/ZIP Co de Phone Number [facility]) [address] [place] [address] * MAKAYLA-1 ANTIBODY (11/16/2019 9:28 AM CDT) Pathologist [facility] Makayla-1 Antibody IgG 3 0 - 40 AU/mL 11/18/2019 6:32 AM CDT [facility] ([facility]) Comment: INTERPRETIVE INFORMATION: Makayla-1 Antibody, IgG 29 AU/mL or less.........Negative 30-40 AU/mL..............Equivocal 41 AU/mL or greater......Positive Presence of Makayla-1 (antihistidyl transfer RNA [t-RNA] synthetase) antibody is associated with polymyositis and may also be seen in patients with dermatomyositis. Makayla-1 antibody is associated with pulmonary involvement (interstitial lung disease), Raynaud phenomenon, arthritis, and elevator mechanic's hands (implicated in antisynthetase syndrome). Performed By: [facility] [address] [place] [address] After School Program Director: Lance Sandoval MD, MS Blood BLOOD SPECIMEN / Unknown Lab Venipuncture / Unknown 11/16/2019 9:28 AM CDT 11/16/2019 10:25 AM CDT Salbador Choudhary MD LAB - CHEMISTRY SHANKAR KATE Performing Organization Address City/[facility]/ZIP Co de Phone Number [facility] ([facility]) [address] [place] [address] * CYCLIC CITRULLINATED PEPTIDE(CCP) AB IGG (11/16/2019 9:28 AM CDT) CCP Antibody IgG 0.5 <5.0 U/mL 11/16/2019 2:[address] [facility] Blood BLOOD SPECIMEN / Unknown Lab Venipuncture / Unknown 11/16/2019 9:28 AM CDT 11/16/2019 10:25 AM CDT Salbador Choudhary MD LAB - CHEMISTRY SHANKAR KATE [address] [address] [phone] * DERMATOPATHOLOGY (09/06/2019 12:00 AM CDT) Case Report Dermatopathology Report Case: [id number] Authorizing Provider: Rosie Mary MD Collected: 09/06/2019 12:00 AM Ordering Location: [facility] DermPath Lab Received: 09/07/2019 06:47 AM [...] The specimen consists of a punch measuring [id number], bisected. Jar 0. 0 3:10 PM CDT [...] characteristic determined by the Dermatopathology Laboratory at [facility], directed by Dr. Elian Jo. These tests need not be, and therefore are not, approved by the [place] Food and Drug Administration. The tests are used for clinical purposes. Billing Codes Specimen Charges Stain Charges 81468 1 64589 25008 1 1 0 3:10 PM CDT DERMATOPATHOLOGY LABORATORY Embedded Images 0 3:10 PM CDT DERMATOPATHOLOGY LABORATORY Pathology/Cytolog y TISSUE SPECIMEN FROM SKIN / Unknown 09/06/2019 09/07/2019 6:47 AM CDT Rosie Mary MD LAB - PATHOLOGY/CYTO LOGY ORDERABLES DERMATOPATHOLOGY LABORATORY [facility] - Department of Dermatology [facility], 5th Floor Lab B [address] [phone] Care Teams Drum Builder Relationship Specialty Start Date End Date Tasha Perez PA-C [address] [place] [phone] PCP - General 10/08/19
--- OUTSIDE RECORDS SUMMARY | 2024-06-29 19:29 | XMS_ITS | Encounter Summary ---
Author Organization [facility] Address [address] [place] [address] Care Team Providers Care Cone Chocolate Dipper Name Role Phone Tasha Perez PA-C Primary Care Provider Reason for Visit * Reason Onset Date Comments Returned Call 01/06/2020 Encounter Details Date Type Department Care Team (Late Contact Info) Description 01/06/2020 Telephone [facility] Dermatology [address] [place] [address] Kathy Cash MD [address] [facility] 3L [place] [address] Returned Call Social History Tobacco Use Types [...] Visit [facility] - Rheumatology [address] [facility], [place] [phone] Linda Pennington MD [facility] [place] [phone] documented as of this encounter Visit Diagnoses Not on filedocumented in this encounter Additional Health Concerns Infection Onset Date Last Indicated Resolved Time COVID-19 Under Investigation 12/18/2021 12/18/2021 12/18/2021 1:01 PM CDT documented as of this encounter Care Teams Cone Chocolate Dipper Relationship Specialty Start Date End Date Tasha Perez PA-C [address] [place] [phone] PCP - General 10/08/19 documented as of this encounter
--- OUTSIDE RECORDS SUMMARY | 2024-06-29 19:29 | XMS_ITS | Encounter Summary ---
Author Organization [facility] Address [address] [place] [address] Care Team Providers Care Environmental Health And Safety Manager Name Role Phone Tasha Perez PA-C Primary Care Provider Reason for Visit * Reason Onset Date Comments Post Op Call 04/05/2020 Encounter Details Date Type Department Care Team (Late Contact Info) Description 04/05/2020 Telephone [facility] ENDOSCOPY [address] [place] [phone] Latanya Chapa RN Post Op Call Social [...] Description 10/13/2024 2:40 PM CDT Office Visit [facility] - Rheumatology [address] [place] [address], [place] [phone] Linda Pennington MD [address] [place] [address] [place] [phone] documented as of this encounter Visit Diagnoses Not on filedocumented in this encounter Additional Health Concerns Infection Onset Date Last Indicated Resolved Time COVID-19 Under Investigation 12/18/2021 12/18/2021 12/18/2021 1:01 PM CDT documented as of this encounter Care Teams Environmental Health And Safety Manager Relationship Specialty Start Date End Date Tasha Perez PA-C [address] [place] [phone] PCP - General 10/08/19 documented as of this encounter
--- OUTSIDE RECORDS SUMMARY | 2024-06-29 19:29 | XMS_ITS | Clinical Summary ---
Author Organization [facility] [employer] Address [address] [place] [address] Care Team Providers Care It Account Manager Name Role Phone Tasha Perez PA-C Primary Care Provider Source Comments [facility] [employer],non-owned Affiliates and Associated Physician Practices is amultiple site organization consisting of ambulatory clinics and hospital sitesin [place], [place]. This disclosure is being madepursuant to the Care Everywhere program and may not contain all information available regarding this patient. Last updated 18.[facility] [employer] Allergies No known active allergies Medications * [...] Last Assessment & Plan: Will send to [facility] now for outpatient covid 19 testing. Patient [...] protection Assessment & Plan (05/31/2020 1:45 PM STONE PLANER): Improved -Continue HCQ 200mg daily -Continue Desonide [...] visit Assessment & Plan (05/31/2020 4:27 PM STONE PLANER): Hydroxychloroquine - CBC and CMP ordered to [...] 06/21/2024 Telephone [facility] - Rheumatology [address] [place] [address], [place] [phone] Linda Pennington MD Question 06/21/2024 Telephone [facility]umatology [address] [place] [phone] Linda Pennington MD Requesting Labs 06/15/2024 3:20 PM STONE PLANER Office Visit [facility] - Rheumatology [address] [place] [address] [place] [address] Linda Pennington MD Adult onset amyopathic dermatomyositis (HCC) (Primary Dx); Encounter for long-term (current) use of high-risk medication; Encounter for therapeutic drug monitoring; Dermatomyositis (HCC) 06/15/2024 Travel from Last 3 Months Immunizations Name Administration Dates Next Due INFLUENZA VACCINE, TRIV. (AF LURIA, FLUZONE TRIVALENT; 6MO+) (IIV3) 05/06/2014,03/19/2013 Covid [employer] primary monoval ent 12+ yr 0.3mL Purple [...] Comments Blood Pressure 120/73 06/15/2024 3:28 PM STONE PLANER Pulse 78 06/15/2024 3:28 PM STONE PLANER Temperature 36.1 C (97 F) 06/15/2024 3:28 PM STONE PLANER Respiratory Rate 16 12/18/2021 6:24 PM CDT Oxygen Saturation 98% 06/15/2024 3:28 PM STONE PLANER Inhaled Oxygen Concentration - - Weight 58 kg (127 lb 12.8 oz) 06/15/2024 3:28 PM STONE PLANER Height 162.6 cm (5' 4 ) 06/15/2024 3:28 PM STONE PLANER Body Mass Index 21.94 06/15/2024 3:28 PM STONE PLANER Plan of Treatment Upcoming Encounters Date Type Department Care Team (Late st Contact Info) Description 10/13/2024 2:40 PM CDT Office Visit [facility] - Rheumatology [address] [place] [address], [facility] [place] [phone] Linda Pennington MD [address] [place] [address] [place] [phone] Health Maintenance Due Date Last Done Comments [...] Comments EXTENDED MYOSITIS PANEL 06/21/2024 8:20 AM STONE PLANER URINALYSIS W/MICROSCOPIC REFLEX TO CULTURE Routine 06/21/2024 7:58 AM STONE PLANER Adult onset amyopathic dermatomyositis (HCC) Encounter for long-term (current) use of high-risk medication Encounter for therapeutic drug monitoring ERYTHROCYTE SEDIMENTATION RATE Routine 06/21/2024 7:58 AM STONE PLANER Adult onset amyopathic dermatomyositis (HCC) Encounter for long-term (current) use of high-risk medication Encounter for therapeutic drug monitoring C-REACTIVE PROTEIN Routine 06/21/2024 7: 58 AM STONE PLANER Adult onset amyopathic dermatomyositis (HCC) Encounter for long-term (current) use of high-risk medication Encounter for therapeutic drug monitoring COMPREHENSIVE METABOLIC PANEL Routine 06/21/2024 7:58 AM STONE PLANER Adult onset amyopathic dermatomyositis (HCC) Encounter for long-term (current) use of high-risk medication Encounter for therapeutic drug monitoring CBC W AUTO DIFFERENTIAL Routine 06/21/2024 7:58 AM STONE PLANER Adult onset amyopathic dermatomyositis (HCC) Encounter for long-term (current) use of high-risk medication Encounter for therapeutic drug monitoring CULTURE URINE REFLEXED III 06/21/2024 7:58 AM STONE PLANER from Last 3 Months Results * (ABNORMAL) EXTENDED MYOSITIS PANEL (06/21/2024 8:20 AM STONE PLANER) Makayla-1 Antibody <11 <[address]-7 Antibody <11 <[address]-12 Antibody <11 <11 [facility] EJ Antibody <11 <11 [facility] OJ Antibody <11 <11 [facility] SRP Antibody <11 <11 [facility] LA-2 Alpha Antibody <11 <11 [facility] LA-2 Beta Antibody <11 <11 SI [facility] MDA-5 [...] with a rash. Additionally, MSAs to MDA5 ([id number]) have been identified in patients with clinically [...] analytical performance characteristics have been determined by [employer]. It has not been cleared or approved by the FDA. This assay has been validated pursuant to the CLIA regulations and is used for clinical purposes. HMGCR AB IGG <2 <20 CU [facility] Comment: 6-Eouparp-6-Methylglutaryl-Coenzyme A Reductase (HMGCR) Ab is associated with [...] analytical performance characteristics have been determined by [employer]. It has not been cleared or approved by FDA. This assay has been validated pursuant to the CLIA regulations and is used for clinical purposes. REPORT COMMENT: FASTING:YES Test Performed at: [facility] [address] [place] [address] SARAH MARTINES MD,PHD,GIORGI 06/21/2024 8:20 AM STONE PLANER 06/21/2024 8:20 AM STONE PLANER Linda Pennington MD LAB - CHEMISTR Y ORDERABLES [facility] [address] [place] [address] * CULTURE URINE REFLEXED III (06/21/2024 7:58 AM STONE PLANER) Reflexive Urine Culture See Below [facility] Comment: NO CULTURE INDICATED REPORT COMMENT: FASTING:YES Test Performed at: [facility] [address] SIRIA MOFFETT MD 06/21/2024 7:58 AM STONE PLANER 06/21/2024 8:13 AM STONE PLANER Linda Pennington MD LAB - MICROBIO LOGY ORDERABLES Performing Organization Address [facility]/ZIP Co de Phone Number [address] [address] * URINALYSIS W/MICROSCOPIC REFLEX TO CULTURE (06/21/2024 7:58 AM STONE PLANER) Color UA YELLOW YELLOW [facility] Appearance CLEAR CLEAR [facility] Specific Moro UA 1.009 1.001 - 1.035 [facility] pH [...] elements seen were reported. Test Performed at: [facility] [address] SIRIA MOFFETT MD Urine MID-STREAM URINE SPECIMEN / Unknown 06/21/2024 7:58 AM STONE PLANER 06/21/2024 8:13 AM STONE PLANER Linda Pennington MD LAB - URINALYS IS ORDERABLES Performing Organization Address [facility]/ZIP Co de Phone Number [address] [address] * C-REACTIVE PROTEIN (06/21/2024 7:58 AM STONE PLANER) [facility] C-Reactive Protein <5.0 <8.0 mg/L [facility] Comment: REPORT COMMENT: FASTING:YES Test Performed at: [address] [address] SIRIA MOFFETT MD Blood BLOOD SPECIMEN / Unknown 06/21/2024 7:58 AM STONE PLANER 06/21/2024 8:13 AM STONE PLANER Linda Pennington MD LAB - CHEMISTR Y ORDERABLES Performing Organization Address [facility] Co de Phone Number [address] [address] * ERYTHROCYTE SEDIMENTATION RATE (06/21/2024 7:58 AM STONE PLANER) [facility] Erythrocyte Sedimentation Rate Westergren 11 < OR = 20 mm/h [facility] Comment: Test Performed at: [address] [address] SIRIA MOFFETT MD Blood BLOOD SPECIMEN / Unknown 06/21/2024 7:58 AM STONE PLANER 06/21/2024 8:13 AM STONE PLANER Linda Pennington MD LAB - HEMATOLO GY ORDERABLES Performing Organization Address [facility] de Phone Number [address] [address] * CBC WITH DIFFERENTIAL (06/21/2024 7:58 AM STONE PLANER) [facility] White Blood Cell Count 5.4 3.8 - [...] 0.9 % [facility] Comment: Test Performed at: [facility] [address] SIRIA MOFFETT MD Blood BLOOD SPECIMEN / Unknown 06/21/2024 7:58 AM STONE PLANER 06/21/2024 8:13 AM STONE PLANER Linda Pennington MD LAB - HEMATOLO GY ORDERABLES [address] [address] * COMPREHENSIVE METABOLIC PANEL (06/21/2024 7:58 AM STONE PLANER) Pathologist [facility] Glucose 85 65 - 99 mg/dL [facility] [...] 29 U/L [facility] Comment: Test Performed at: [facility] [address] SIRIA MOFFETT MD Blood BLOOD SPECIMEN / Unknown 06/21/2024 7:58 AM STONE PLANER 06/21/2024 8:13 AM STONE PLANER Linda Pennington MD LAB - CHEMISTR Y ORDERABLES [facility] [address] [place] [address] from Last 3 Months Care Teams It Account Manager Relationship Specialty Start Date End Date Tasha Perez PA-C [address] [place] [phone] PCP - General 10/08/19
--- OUTSIDE RECORDS SUMMARY | 2024-06-29 19:29 | XMS_ITS | Referral Summary ---
Author Organization [facility] Address [address] [place] [address] Care Team Providers Care Lathe Puller Name Role Phone Tasha Perez PA-C Primary Care Provider Source Comments [facility],non-owned Affiliates and Associated Physician Practices is amultiple site organization consisting of ambulatory clinics and hospital sitesin [place], [place], [place] and [place]. This disclosure is being madepursuant to the Care Everywhere program and may not contain all information available regarding this patient. Last updated 18.[facility] Encounters Date Type Department Care Team Description 06/21/2024 Telephone [facility] - Rheumatology [address] [place] [phone] Linda Pennington MD Question 06/21/2024 Telephone [facility] - Rheumatology [address] [place] [phone] Linda Pennington MD Requesting Labs 06/15/2024 Travel 06/15/2024 3:20 PM BANQUET LINE COOK Office Visit [facility] - Rheumatology [address] [place] [phone] Linda Pennington MD Adult onset amyopathic dermatomyositis [...] Last Assessment & Plan: Will send to [facility] now for outpatient covid 19 testing. Patient [...] protection Assessment & Plan (05/31/2020 1:45 PM BANQUET LINE COOK): Improved -Continue HCQ 200mg daily -Continue Desonide [...] visit Assessment & Plan (05/31/2020 4:27 PM BANQUET LINE COOK): Hydroxychloroquine - CBC and CMP ordered to [...] LURIA, FLUZONE TRIVALENT; 6MO+) (IIV3) 05/06/2014,03/19/2013 Covid Bunchball primary monoval ent 12+ yr 0.3mL Purple [...] Comments Blood Pressure 120/73 06/15/2024 3:28 PM BANQUET LINE COOK Pulse 78 06/15/2024 3:28 PM BANQUET LINE COOK Temperature 36.1 C (97 F) 06/15/2024 3:28 PM BANQUET LINE COOK Respiratory Rate 16 12/18/2021 6:24 PM CDT Oxygen Saturation 98% 06/15/2024 3:28 PM BANQUET LINE COOK Inhaled Oxygen Concentration - - Weight 58 kg (127 lb 12.8 oz) 06/15/2024 3:28 PM BANQUET LINE COOK Height 162.6 cm (5' 4 ) 06/15/2024 3:28 PM BANQUET LINE COOK Body Mass Index 21.94 06/15/2024 3:28 PM BANQUET LINE COOK Plan of Treatment Upcoming Encounters Date Type Department Care Team (Late st Contact Info) Description 10/13/2024 2:40 PM CDT Office Visit [facility] - Rheumatology [address] [place] [address], [facility] [place] [address] Linda Pennington MD [address] [place] [address] [place] [address] Procedures Procedure Name Priority Date/Time Associated Diagnosis Comments EXTENDED MYOSITIS PANEL 06/21/2024 8:20 AM BANQUET LINE COOK URINALYSIS W/MICROSCOPIC REFLEX TO CULTURE Routine 06/21/2024 7:58 AM BANQUET LINE COOK Adult onset amyopathic dermatomyositis (HCC) Encounter for long-term (current) use of high-risk medication Encounter for therapeutic drug monitoring ERYTHROCYTE SEDIMENTATION RATE Routine 06/21/2024 7:58 AM BANQUET LINE COOK Adult onset amyopathic dermatomyositis (HCC) Encounter for long-term (current) use of high-risk medication Encounter for therapeutic drug monitoring C-REACTIVE PROTEIN Routine 06/21/2024 7: 58 AM BANQUET LINE COOK Adult onset amyopathic dermatomyositis (HCC) Encounter for long-term (current) use of high-risk medication Encounter for therapeutic drug monitoring COMPREHENSIVE METABOLIC PANEL Routine 06/21/2024 7:58 AM BANQUET LINE COOK Adult onset amyopathic dermatomyositis (HCC) Encounter for long-term (current) use of high-risk medication Encounter for therapeutic drug monitoring CBC W AUTO DIFFERENTIAL Routine 06/21/2024 7:58 AM BANQUET LINE COOK Adult onset amyopathic dermatomyositis (HCC) Encounter for long-term (current) use of high-risk medication Encounter for therapeutic drug monitoring CULTURE URINE REFLEXED III 06/21/2024 7:58 AM BANQUET LINE COOK from Last 3 Months Results * (ABNORMAL) EXTENDED MYOSITIS PANEL (06/21/2024 8:20 AM BANQUET LINE COOK) Makayla-1 Antibody <11 <[address] [address]-7 Antibody <11 <[address]-12 Antibody <11 <11 SI [facility] EJ Antibody <11 <11 [facility] OJ Antibody <11 <11 [facility] SRP Antibody <11 <11 [facility] RI-2 Alpha Antibody <11 <11 SI [facility] RI-2 Beta Antibody <11 <11 SI [facility] MDA-5 [...] with a rash. Additionally, MSAs to MDA5 (USRW383) have been identified in patients with clinically [...] analytical performance characteristics have been determined by [facility] [employer] [facility]. It has not been cleared or approved by the FDA. This assay has been validated pursuant to the CLIA regulations and is used for clinical purposes. HMGCR AB IGG <2 <20 CU [facility] Comment: 8-Zlacnhg-5-Methylglutaryl-Coenzyme A Reductase (HMGCR) Ab is associated with [...] analytical performance characteristics have been determined by [facility] [employer] [facility]. It has not been cleared or approved by FDA. This assay has been validated pursuant to the CLIA regulations and is used for clinical purposes. REPORT COMMENT: FASTING:YES Test Performed at: [facility] [address] [place] [address] SARAH MARTINES MD,PHD,GIORGI 06/21/2024 8:20 AM BANQUET LINE COOK 06/21/2024 8:20 AM BANQUET LINE COOK Linda Pennington MD LAB - CHEMISTR Y ORDERABLES [facility] [address] [place] [address] * CULTURE URINE REFLEXED III (06/21/2024 7:58 AM BANQUET LINE COOK) Pathologist [facility] Reflexive Urine Culture See Below [facility] Comment: NO CULTURE INDICATED REPORT COMMENT: FASTING:YES Test Performed at: [facility] [address] SIRIA MOFFTET MD 06/21/2024 7:58 AM BANQUET LINE COOK 06/21/2024 8:13 AM BANQUET LINE COOK Linda Pennington MD LAB - MICROBIO LOGY ORDERABLES Performing Organization Address [facility]/ZIP Co de Phone Number [address] [address] * URINALYSIS W/MICROSCOPIC REFLEX TO CULTURE (06/21/2024 7:58 AM BANQUET LINE COOK) Color UA YELLOW YELLOW [facility] Appearance CLEAR CLEAR [facility] Specific [place] UA 1.009 1.001 - 1.035 [facility] pH [...] elements seen were reported. Test Performed at: [facility] [address] SIRIA MOFFETT MD Urine MID-STREAM URINE SPECIMEN / Unknown 06/21/2024 7:58 AM BANQUET LINE COOK 06/21/2024 8:13 AM BANQUET LINE COOK Linda Pennington MD LAB - URINALYS IS ORDERABLES Performing Organization Address [facility]/ZIP Co de Phone Number [address] [address] * C-REACTIVE PROTEIN (06/21/2024 7:58 AM BANQUET LINE COOK) [facility] C-Reactive Protein <5.0 <8.0 mg/L [facility] Comment: REPORT COMMENT: FASTING:YES Test Performed at: [address] [address] SIRIA MOFFETT MD Blood BLOOD SPECIMEN / Unknown 06/21/2024 7:58 AM BANQUET LINE COOK 06/21/2024 8:13 AM BANQUET LINE COOK Linda Pennington MD LAB - CHEMISTR Y ORDERABLES Performing Organization Address City/[facility]/ZIP Co de Phone Number [address] [address] * ERYTHROCYTE SEDIMENTATION RATE (06/21/2024 7:58 AM BANQUET LINE COOK) [facility] Erythrocyte Sedimentation Rate Westergren 11 < OR = 20 mm/h [facility] Comment: Test Performed at: [address] [address] SIRIA MOFFETT MD Blood BLOOD SPECIMEN / Unknown 06/21/2024 7:58 AM BANQUET LINE COOK 06/21/2024 8:13 AM BANQUET LINE COOK Linda Pennington MD LAB - HEMATOLO GY ORDERABLES Performing Organization Address City/[facility]/[place] [address] * CBC WITH DIFFERENTIAL (06/21/2024 7:58 AM BANQUET LINE COOK) [facility] White Blood Cell Count 5.4 3.8 - [...] 0.9 % [facility] Comment: Test Performed at: [facility] [address] SIRIA MOFFETT MD Blood BLOOD SPECIMEN / Unknown 06/21/2024 7:58 AM BANQUET LINE COOK 06/21/2024 8:13 AM BANQUET LINE COOK Linda Pennington MD LAB - HEMATOLO GY ORDERABLES [address] [address] * COMPREHENSIVE METABOLIC PANEL (06/21/2024 7:58 AM BANQUET LINE COOK) Pathologist [facility] Glucose 85 65 - 99 mg/dL [facility] [...] 29 U/L [facility] Comment: Test Performed at: [facility] [address] SIRIA MOFFETT MD Blood BLOOD SPECIMEN / Unknown 06/21/2024 7:58 AM BANQUET LINE COOK 06/21/2024 8:13 AM BANQUET LINE COOK Linda Pennington MD LAB - CHEMISTR Y ORDERABLES [address] [address] from Last 3 Months Care Teams Lathe Puller Relationship Specialty Start Date End Date Tasha Perez PA-C [address] [place] [phone] PCP - General 10/08/19
[2024-06-29 21:27] LABS: BEDSIDEPREGUCG Negative (Negative)
--- OUTSIDE RECORDS SUMMARY | 2024-06-29 21:30 | XMS_ITS | Encounter Summary ---
Author Organization [facility] Address [address] [facility] [place] [address] Care Team Providers Care Tap Grinder Name Role Phone Tasha Perez PA-C Primary Care Provider Encounter Details Date Type Department Care Team (Late Contact Info) Description 02/11/2024 Telephone [facility] - Centralized Scheduling [address] [place] [address] Neena Jo MD [address] [place] [address] [address] [place] [address] Social History Tobacco Use Types [...] Upcoming Encounters Date Type Department Care Team ([facility] Contact Info) Description 10/13/2024 2:40 PM CDT Office Visit [facility] - Rheumatology [address] [place] [address], [facility] [place] [address] Linda Pennington MD [address] [place] [address] documented as of this encounter Visit Diagnoses Not on filedocumented in this encounter Care Teams Tap Grinder Relationship Specialty Start Date End Date Tasha Perez PA-C [address] [place] [phone] PCP - General 10/08/19 documented as of this encounter
--- OUTSIDE RECORDS SUMMARY | 2024-06-29 21:30 | XMS_ITS | Encounter Summary ---
Author Organization [facility] Address [address] [place] [address] Care Team Providers Care Director Of Surgery Name Role Phone Tasha Perez PA-C Primary Care Provider Encounter Details Date Type Department Care Team (Late st Contact Info) Description 09/07/2019 Lab Requisition [facility] [address] [facility] [place] [phone] Rosie Mary MD [address] [place] [address] [address] [place] [address] Social History Tobacco Use Types Packs/Day Years [...] Office Visit [facility] - Rheumatology [address] [place] [address], [place] [address] Linda Pennington MD [address] [place] [address] [address] [place] [address] documented as of this encounter Procedures Procedure Name Priority Date/Time Associated Diagnosis Comments DERMATOPATHOLOGY Routine 09/06/2019 12:0 0 AM CDT documented in this encounter Results * DERMATOPATHOLOGY (09/06/2019 12:00 AM CDT) Case Report Dermatopathology Report Case: [id number] Authorizing Provider: Rosie Mary MD Collected: 09/06/2019 12:00 AM Ordering Location: [facility] Derm[facility] Lab Received: 09/07/2019 06:47 AM [...] The specimen consists of a punch measuring [id number], bisected. Jar 0. 0 3:10 PM CDT [...] characteristic determined by the Dermatopathology Laboratory at [facility], directed by Dr. Elian Jo. These tests need not be, and therefore are not, approved by the [place] Food and Drug Administration. The tests are used for clinical purposes. Billing Codes Specimen Charges Stain Charges 10781 1 25159 64997 1 1 0 3:10 PM CDT DERMATOPATHOLOGY LABORATORY Embedded Images 0 3:10 PM CDT DERMATOPATHOLOGY LABORATORY Pathology/Cytolog y TISSUE SPECIMEN FROM SKIN / Unknown 09/06/2019 09/07/2019 6:47 AM CDT Rosie Mary MD LAB - PATHOLOGY/CYTO LOGY ORDERABLES DERMATOPATHOLOGY LABORATORY [facility] - Department of Dermatology [address] [place] [address], 5th Floor Lab [address] [phone] documented in this encounter Visit Diagnoses Not on filedocumented in this encounter Additional Health Concerns Infection Onset Date Last Indicated Resolved Time COVID-19 Under Investigation 12/18/2021 12/18/2021 12/18/2021 1:01 PM CDT documented as of this encounter Care Teams Director Of Surgery Relationship Specialty Start Date End Date Tasha Perez PA-C [facility] [place] [phone] PCP - General 10/08/19 documented as of this encounter
--- OUTSIDE RECORDS SUMMARY | 2024-06-29 21:30 | XMS_ITS | Clinical Summary ---
Author Organization [facility] Medical Office Building [address] [place] [phone] Care Team Providers Care Woods Manager Name Role Phone Tasha Perez Primary [...] (12/17/2021 9:09 AM CDT): Will send to [facility] now for outpatient covid 19 testing. Patient [...] prilosec Assessment & Plan (06/11/2021 6:59 PM IT SUPPORT ENGINEER): improving with protonix, continue with medication at this time Assessment & Plan (05/28/2021 11:46 AM IT SUPPORT ENGINEER): Will refer to gi for further evaluation and treatment Advised bland diet Will change pepcid to nexium Will evaluate abd pain further with US Rectal bleed 05/28/2021 Assessment & Plan (05/28/2021 11:45 AM IT SUPPORT ENGINEER): Patient declines rectal exam Will refer to gi Will assess for anemia with labs today Irregular menses 05/28/2021 Assessment & Plan (05/28/2021 11:45 AM IT SUPPORT ENGINEER): She was encouraged to follow up with her wrapping checker Calculus of gallbladder with out cholecystitis without obstruction 05/28/2021 Assessment & Plan (05/28/2021 11:47 AM IT SUPPORT ENGINEER): We reviewed ct abd/pelvis from care everywhere. Will evaluate further with US abdomen. History of Helicobacter pylori infection 022 Assessment & Plan (05/28/2021 11:46 AM IT SUPPORT ENGINEER): Will refer to gi for further evaluation and treatment Advised bland diet Will change pepcid to nexium Will evaluate abd pain further with US History of COVID-19 05/28/2021 Dizziness 11/27/2020 Assessment & Plan (07/16/2021 7:17 PM CDT): Continue with prn antivert Assessment & Plan (06/11/2021 7:35 PM IT SUPPORT ENGINEER): Add prn meclizine, advised no driving for 6h after taking as it may make her drowsy Discussed further evaluation with imaging if symptoms continue Assessment & Plan (05/28/2021 11:46 AM IT SUPPORT ENGINEER): Will evaluate further with labs for anemia [...] 10/11/2019 Assessment & Plan (05/28/2021 11:47 AM IT SUPPORT ENGINEER): Advised follow up with derm - note [...] 12/17/2021 Assessment & Plan (05/28/2021 11:46 AM IT SUPPORT ENGINEER): Retrieve records from previous pcp Immunizations Immunization [...] on file Legal Sex Female 9:29 AM IT SUPPORT ENGINEER Gender Identity Not on file Sexual Orientation [...] age 40, based on guidelines of the [employer] (ACR Practice Parameter for the Performance of Screening and Diagnostic Mammography) and [employer]. For women [...] Most Recently Relevant to Health Maintenance Insurance [facility] Care Teams Woods Manager Relationship Specialty Start Date End Date Tasha Perez PA PCP - General Physician Machine Plaster Mixer 07/08/22
--- OUTSIDE RECORDS SUMMARY | 2024-06-29 21:30 | XMS_ITS | Referral Summary ---
Author Organization [facility] Medical Office Building [address] [place] [phone] Care Team Providers Care Processing Tech Name Role Phone Tasha Perez Primary Care [...] (12/17/2021 9:09 AM CDT): Will send to [place] now for outpatient covid 19 testing. Patient [...] prilosec Assessment & Plan (06/11/2021 6:59 PM MARRIAGE THERAPIST): improving with protonix, continue with medication at this time Assessment & Plan (05/28/2021 11:46 AM MARRIAGE THERAPIST): Will refer to gi for further evaluation and treatment Advised bland diet Will change pepcid to nexium Will evaluate abd pain further with US Rectal bleed 05/28/2021 Assessment & Plan (05/28/2021 11:45 AM MARRIAGE THERAPIST): Patient declines rectal exam Will refer to gi Will assess for anemia with labs today Irregular menses 05/28/2021 Assessment & Plan (05/28/2021 11:45 AM MARRIAGE THERAPIST): She was encouraged to follow up with her revenue stamp cutter Calculus of gallbladder with out cholecystitis without obstruction 05/28/2021 Assessment & Plan (05/28/2021 11:47 AM MARRIAGE THERAPIST): We reviewed ct abd/pelvis from care everywhere. Will evaluate further with US abdomen. History of Helicobacter pylori infection 022 Assessment & Plan (05/28/2021 11:46 AM MARRIAGE THERAPIST): Will refer to gi for further evaluation and treatment Advised bland diet Will change pepcid to nexium Will evaluate abd pain further with US History of COVID-19 05/28/2021 Dizziness 11/27/2020 Assessment & Plan (07/16/2021 7:17 PM CDT): Continue with prn antivert Assessment & Plan (06/11/2021 7:35 PM MARRIAGE THERAPIST): Add prn meclizine, advised no driving for 6h after taking as it may make her drowsy Discussed further evaluation with imaging if symptoms continue Assessment & Plan (05/28/2021 11:46 AM MARRIAGE THERAPIST): Will evaluate further with labs for anemia [...] 10/11/2019 Assessment & Plan (05/28/2021 11:47 AM MARRIAGE THERAPIST): Advised follow up with derm - note [...] 12/17/2021 Assessment & Plan (05/28/2021 11:46 AM MARRIAGE THERAPIST): Retrieve records from previous pcp Immunizations Immunization [...] on file Legal Sex Female 9:29 AM MARRIAGE THERAPIST Gender Identity Not on file Sexual Orientation [...] age 40, based on guidelines of the [employer] (ACR Practice Parameter for the Performance of Screening and Diagnostic Mammography) and [employer]. For women with and elevated risk of breast cancer, please refer to the ACR Practice Parameter for specific screening recommendations. The patient will be entered into a reminder system with a target due date of 1 year for her next screening exam. Narrative 07/08/2022 10:11 AM CDT Screening Mammogram Bilateral W Tannre: 07/08/22 The study was acquired using full [...] Most Recently Relevant to Health Maintenance Insurance [id number] [place] [address] [facility] Care Teams Processing Tech Relationship Specialty Start Date End Date Tasha Perez PA PCP - General Physician Cleaning Machine Operator 07/08/22
--- OUTSIDE RECORDS SUMMARY | 2024-06-29 21:31 | XMS_ITS | Encounter Summary ---
Author Organization [facility] Address [address] [place] [address] Care Team Providers Care Medart Operator Name Role Phone Tasha Perez PA-C Primary Care Provider Reason for Visit * Reason Onset Date Comments Post Op Call 04/05/2020 Encounter Details Date Type Department Care Team (Late Contact Info) Description 04/05/2020 Telephone [facility] ENDOSCOPY [address] [place] [phone] Latanya Chapa RN Post Op Call Social [...] Description 10/13/2024 2:40 PM CDT Office Visit [facility] - Rheumatology [address] [place] [address], [place] [phone] Linda Pennington MD [address] [place] [address] [place] [phone] documented as of this encounter Visit Diagnoses Not on filedocumented in this encounter Additional Health Concerns Infection Onset Date Last Indicated Resolved Time COVID-19 Under Investigation 12/18/2021 12/18/2021 12/18/2021 1:01 PM CDT documented as of this encounter Care Teams Medart Operator Relationship Specialty Start Date End Date Tasha Perez PA-C [address] [place] [phone] PCP - General 10/08/19 documented as of this encounter
--- OUTSIDE RECORDS SUMMARY | 2024-06-29 21:31 | XMS_ITS | Referral Summary ---
Author Organization [facility] Address [address] [place] [address] Care Team Providers Care Manager Commodities Name Role Phone Tasha Perez PA-C Primary Care Provider Source Comments [facility],non-owned Affiliates and Associated Physician Practices is amultiple site organization consisting of ambulatory clinics and hospital sitesin [place], [place], [place] and [place]. This disclosure is being madepursuant to the Care Everywhere program and may not contain all information available regarding this patient. Last updated 18.[facility] Encounters Date Type Department Care Team Description 06/21/2024 Telephone [facility] - Rheumatology [address] [place] [phone] Linda Pennington MD Question 06/21/2024 Telephone [facility] [address] [place] [phone] Linda Pennington MD Requesting Labs 06/15/2024 Travel 06/15/2024 3:20 PM POLLS OR SURVEYS INTERVIEWER Office Visit [facility]ology [address] [place] [phone] Linda Pennington MD Adult onset amyopathic dermatomyositis [...] Last Assessment & Plan: Will send to [place] now for outpatient covid 19 testing. Patient [...] protection Assessment & Plan (05/31/2020 1:45 PM POLLS OR SURVEYS INTERVIEWER): Improved -Continue HCQ 200mg daily -Continue Desonide [...] visit Assessment & Plan (05/31/2020 4:27 PM POLLS OR SURVEYS INTERVIEWER): Hydroxychloroquine - CBC and CMP ordered to [...] LURIA, FLUZONE TRIVALENT; 6MO+) (IIV3) 05/06/2014,03/19/2013 Covid [employer] [place] primary monoval ent 12+ yr 0.3mL Purple [...] Comments Blood Pressure 120/73 06/15/2024 3:28 PM POLLS OR SURVEYS INTERVIEWER Pulse 78 06/15/2024 3:28 PM POLLS OR SURVEYS INTERVIEWER Temperature 36.1 C (97 F) 06/15/2024 3:28 PM POLLS OR SURVEYS INTERVIEWER Respiratory Rate 16 12/18/2021 6:24 PM CDT Oxygen Saturation 98% 06/15/2024 3:28 PM POLLS OR SURVEYS INTERVIEWER Inhaled Oxygen Concentration - - Weight 58 kg (127 lb 12.8 oz) 06/15/2024 3:28 PM POLLS OR SURVEYS INTERVIEWER Height 162.6 cm (5' 4 ) 06/15/2024 3:28 PM POLLS OR SURVEYS INTERVIEWER Body Mass Index 21.94 06/15/2024 3:28 PM POLLS OR SURVEYS INTERVIEWER Plan of Treatment Upcoming Encounters Date Type Department Care Team (Late st Contact Info) Description 10/13/2024 2:40 PM CDT Office Visit [facility] - Rheumatology [address] [place] [address], [facility] [place] [phone] Linda Pennington MD [address] [place] [address] [place] [address] Procedures Procedure Name Priority Date/Time Associated Diagnosis Comments EXTENDED MYOSITIS PANEL 06/21/2024 8:20 AM POLLS OR SURVEYS INTERVIEWER URINALYSIS W/MICROSCOPIC REFLEX TO CULTURE Routine 06/21/2024 7:58 AM POLLS OR SURVEYS INTERVIEWER Adult onset amyopathic dermatomyositis (HCC) Encounter for long-term (current) use of high-risk medication Encounter for therapeutic drug monitoring ERYTHROCYTE SEDIMENTATION RATE Routine 06/21/2024 7:58 AM POLLS OR SURVEYS INTERVIEWER Adult onset amyopathic dermatomyositis (HCC) Encounter for long-term (current) use of high-risk medication Encounter for therapeutic drug monitoring C-REACTIVE PROTEIN Routine 06/21/2024 7: 58 AM POLLS OR SURVEYS INTERVIEWER Adult onset amyopathic dermatomyositis (HCC) Encounter for long-term (current) use of high-risk medication Encounter for therapeutic drug monitoring COMPREHENSIVE METABOLIC PANEL Routine 06/21/2024 7:58 AM POLLS OR SURVEYS INTERVIEWER Adult onset amyopathic dermatomyositis (HCC) Encounter for long-term (current) use of high-risk medication Encounter for therapeutic drug monitoring CBC W AUTO DIFFERENTIAL Routine 06/21/2024 7:58 AM POLLS OR SURVEYS INTERVIEWER Adult onset amyopathic dermatomyositis (HCC) Encounter for long-term (current) use of high-risk medication Encounter for therapeutic drug monitoring CULTURE URINE REFLEXED III 06/21/2024 7:58 AM POLLS OR SURVEYS INTERVIEWER from Last 3 Months Results * (ABNORMAL) EXTENDED MYOSITIS PANEL (06/21/2024 8:20 AM POLLS OR SURVEYS INTERVIEWER) Makayla-1 Antibody <11 <[address] [address]-7 Antibody <11 <[address]-12 Antibody <11 <11 [facility] EJ Antibody <11 <11 [facility] OJ Antibody <11 <11 [facility] SRP Antibody <11 <11 [facility] ND-2 Alpha Antibody <11 <11 [facility] ND-2 Beta Antibody <11 <11 [facility] MDA-5 [...] with a rash. Additionally, MSAs to MDA5 ([id number]) have been identified in patients with clinically [...] analytical performance characteristics have been determined by [facility]. It has not been cleared or approved by the FDA. This assay has been validated pursuant to the CLIA regulations and is used for clinical purposes. HMGCR AB IGG <2 <20 CU [facility] Comment: 8-Yprbzng-5-Methylglutaryl-Coenzyme A Reductase (HMGCR) Ab is associated with [...] analytical performance characteristics have been determined by [facility]. It has not been cleared or approved by FDA. This assay has been validated pursuant to the CLIA regulations and is used for clinical purposes. REPORT COMMENT: FASTING:YES Test Performed at: [facility] [address] [place] [address] SARAH MARTINES MD,PHD,GIORGI 06/21/2024 8:20 AM POLLS OR SURVEYS INTERVIEWER 06/21/2024 8:20 AM POLLS OR SURVEYS INTERVIEWER Linda Pennington MD LAB - CHEMISTR Y ORDERABLES [facility] [id number] [place] [address] * CULTURE URINE REFLEXED III (06/21/2024 7:58 AM POLLS OR SURVEYS INTERVIEWER) Pathologist [facility] Reflexive Urine Culture See Below [facility] Comment: NO CULTURE INDICATED REPORT COMMENT: FASTING:YES Test Performed at: [facility] [address] SIRIA MOFFETT MD 06/21/2024 7:58 AM POLLS OR SURVEYS INTERVIEWER 06/21/2024 8:13 AM POLLS OR SURVEYS INTERVIEWER Linda Pennington MD LAB - MICROBIO LOGY ORDERABLES Performing Organization Address [facility]/ZIP Co de Phone Number [address] [address] * URINALYSIS W/MICROSCOPIC REFLEX TO CULTURE (06/21/2024 7:58 AM POLLS OR SURVEYS INTERVIEWER) Color UA YELLOW YELLOW [facility] Appearance CLEAR CLEAR [facility] Specific [place] UA 1.009 1.001 - 1.035 [facility] pH [...] elements seen were reported. Test Performed at: [facility] [address] SIRIA MOFFETT MD Urine MID-STREAM URINE SPECIMEN / Unknown 06/21/2024 7:58 AM POLLS OR SURVEYS INTERVIEWER 06/21/2024 8:13 AM POLLS OR SURVEYS INTERVIEWER Linda Pennington MD LAB - URINALYS IS ORDERABLES Performing Organization Address [facility]/ZIP Co de Phone Number [address] [address] * C-REACTIVE PROTEIN (06/21/2024 7:58 AM POLLS OR SURVEYS INTERVIEWER) [facility] C-Reactive Protein <5.0 <8.0 mg/L [facility] Comment: REPORT COMMENT: FASTING:YES Test Performed at: [address] [address] SIRIA MOFFETT MD Blood BLOOD SPECIMEN / Unknown 06/21/2024 7:58 AM POLLS OR SURVEYS INTERVIEWER 06/21/2024 8:13 AM POLLS OR SURVEYS INTERVIEWER Linda Pennington MD LAB - CHEMISTR Y ORDERABLES Performing Organization Address City/[facility]/ZIP Co de Phone Number [address] [address] * ERYTHROCYTE SEDIMENTATION RATE (06/21/2024 7:58 AM POLLS OR SURVEYS INTERVIEWER) [facility] Erythrocyte Sedimentation Rate Westergren 11 < OR = 20 mm/h [facility] Comment: Test Performed at: [address] [address] SIRIA MOFFETT MD Blood BLOOD SPECIMEN / Unknown 06/21/2024 7:58 AM POLLS OR SURVEYS INTERVIEWER 06/21/2024 8:13 AM POLLS OR SURVEYS INTERVIEWER Linda Pennington MD LAB - HEMATOLO GY ORDERABLES Performing Organization Address [facility]/[place] [address] * CBC WITH DIFFERENTIAL (06/21/2024 7:58 AM POLLS OR SURVEYS INTERVIEWER) [facility] White Blood Cell Count 5.4 3.8 - [...] 0.9 % [facility] Comment: Test Performed at: [facility] [address] SIRIA MOFFETT MD Blood BLOOD SPECIMEN / Unknown 06/21/2024 7:58 AM POLLS OR SURVEYS INTERVIEWER 06/21/2024 8:13 AM POLLS OR SURVEYS INTERVIEWER Linda Pennington MD LAB - HEMATOLO GY ORDERABLES [address] [address] * COMPREHENSIVE METABOLIC PANEL (06/21/2024 7:58 AM POLLS OR SURVEYS INTERVIEWER) Pathologist [facility] Glucose 85 65 - 99 mg/dL [facility] [...] 29 U/L [facility] Comment: Test Performed at: [facility] [address] SIRIA MOFFETT MD Blood BLOOD SPECIMEN / Unknown 06/21/2024 7:58 AM POLLS OR SURVEYS INTERVIEWER 06/21/2024 8:13 AM POLLS OR SURVEYS INTERVIEWER Linda Pennington MD LAB - CHEMISTR Y ORDERABLES [address] [address] from Last 3 Months Care Teams Manager Commodities Relationship Specialty Start Date End Date Tasha Perez PA-C [address] [place] [phone] PCP - General 10/08/19
--- OUTSIDE RECORDS SUMMARY | 2024-06-29 21:31 | XMS_ITS | Encounter Summary ---
Author Organization [facility] Address [address] [place] [address] Care Team Providers Care Art Preparator Name Role Phone Tasha Perez PA-C Primary Care Provider Reason for Visit * Reason Onset Date Comments Returned Call 01/06/2020 Encounter Details Date Type Department Care Team (Late Contact Info) Description 01/06/2020 Telephone [facility] [address] [place] [address] Kathy Cash MD [address] [facility] [address] [place] [address] Returned Call Social History Tobacco Use Types [...] Visit [facility] [address] [facility] [place] [phone] Linda Pennington MD [facility] [place] [phone] documented as of this encounter Visit Diagnoses Not on filedocumented in this encounter Additional Health Concerns Infection Onset Date Last Indicated Resolved Time COVID-19 Under Investigation 12/18/2021 12/18/2021 12/18/2021 1:01 PM CDT documented as of this encounter Care Teams Art Preparator Relationship Specialty Start Date End Date Tasha Perez PA-C [address] [place] [phone] PCP - General 10/08/19 documented as of this encounter
--- OUTSIDE RECORDS SUMMARY | 2024-06-29 21:31 | XMS_ITS | Patient Health Summary ---
Author Organization [facility] Address [address] [place] [address] Care Team Providers Care Salad Bar Clerk Name Role Phone Tasha Perez PA-C Primary Care Provider Note from [facility],non-owned Affiliates and Associated Physician Practices is amultiple site organization consisting of ambulatory clinics and hospital sitesin [place], [place], [place] and [place]. This disclosure is being madepursuant to the Care Everywhere program and may not contain all information available regarding this patient. Last updated 18.[facility] Allergies No known active allergies Medications [...] TRIVALENT; 6MO+) (IIV3)(Given 05/06/2014, 03/19/2013) * Covid [facility] - Addiction Treatment Reviews & Information primary monovalent 12+ yr 0.3mL Purple cap(Given [...] Comments Blood Pressure 120/73 06/15/2024 3:28 PM RECONCILIATION SPECIALIST Pulse 78 06/15/2024 3:28 PM RECONCILIATION SPECIALIST Temperature 36.1 C (97 F) 06/15/2024 3:28 PM RECONCILIATION SPECIALIST Respiratory Rate 16 12/18/2021 6:24 PM CDT Oxygen Saturation 98% 06/15/2024 3:28 PM RECONCILIATION SPECIALIST Inhaled Oxygen Concentration - - Weight 58 kg (127 lb 12.8 oz) 06/15/2024 3:28 PM RECONCILIATION SPECIALIST Height 162.6 cm (5' 4 ) 06/15/2024 3:28 PM RECONCILIATION SPECIALIST Body Mass Index 21.94 06/15/2024 3:28 PM RECONCILIATION SPECIALIST Procedures * EXTENDED MYOSITIS PANEL(Performed 06/21/2024) * [...] 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[facility]), Encounter for long- term (current) use of [...] 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[facility]), Encounter for long- term (current) use of [...] 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[facility]), Encounter for long- term (current) use of high-risk medication, Encounter for therapeutic drug monitoring * CK BLOOD(Performed 11/05/2022) 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[facility]), Encounter for long- term (current) use of high-risk medication, Encounter for therapeutic drug monitoring * ALDOLASE(Performed 11/05/2022) 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[facility]), Encounter for long- term (current) use of high-risk medication, Encounter for therapeutic drug monitoring * ERYTHROCYTE SEDIMENTATION RATE(Performed 11/05/2022) 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[facility]), Encounter for long- term (current) use of high-risk medication, Encounter for therapeutic drug monitoring * C-REACTIVE PROTEIN(Performed 11/05/2022) 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[facility]), Encounter for long- term (current) use of high-risk medication, Encounter for therapeutic drug monitoring * COMPREHENSIVE METABOLIC PANEL(Performed 11/05/2022) 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[facility]), Encounter for long- term (current) use of high-risk medication, Encounter for therapeutic drug monitoring * CBC W AUTO DIFFERENTIAL(Performed 11/05/2022) 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[facility]), Encounter for long- term (current) use of high-risk medication, Encounter for therapeutic drug monitoring * MYOSITIS ANTIBODY PANEL COMPREHENSIVE(Performed 11/05/2022) 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[facility]), Encounter for long- term (current) use of high-risk medication, Encounter for therapeutic drug monitoring * CK BLOOD(Performed 06/17/2022) 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[facility]), Encounter for long- term (current) use of high-risk medication, Encounter for therapeutic drug monitoring * URINALYSIS W/MICROSCOPIC REFLEX TO CULTURE(Performed 06/17/2022) 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[facility]), Encounter for long- term (current) use of [...] 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[facility]), Encounter for long- term (current) use of high-risk medication, Encounter for therapeutic drug monitoring * CULTURE URINE(Performed 06/17/2022) * CULTURE URINE REFLEXED II(Performed 06/17/2022) * ALDOLASE(Performed 02/11/2022) 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[facility]), Encounter for long- term (current) use of high-risk medication, Encounter for therapeutic drug monitoring * CK BLOOD(Performed 02/11/2022) 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[facility]), Encounter for long- term (current) use of high-risk medication, Encounter for therapeutic drug monitoring * URINALYSIS W/MICROSCOPIC REFLEX TO CULTURE(Performed 02/11/2022) 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[facility]), Encounter for long- term (current) use of high-risk medication, Encounter for therapeutic drug monitoring * ERYTHROCYTE SEDIMENTATION RATE(Performed 02/11/2022) 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[facility]), Encounter for long- term (current) use of high-risk medication, Encounter for therapeutic drug monitoring * C-REACTIVE PROTEIN(Performed 02/11/2022) 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] for therapeutic drug monitoring, 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[facility]) * ERYTHROCYTE SEDIMENTATION RATE(Performed 12/04/2021) Performed for Oropharyngeal dysphagia, Encounter for long-term (current) use of high-risk medication, Encounter for therapeutic drug monitoring, 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[facility]) * C-REACTIVE PROTEIN(Performed 12/04/2021) Performed for Oropharyngeal dysphagia, Encounter for long-term (current) use of high-risk medication, Encounter for therapeutic drug monitoring, 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[facility]) * CBC W AUTO DIFFERENTIAL(Performed 12/04/2021) Performed for Oropharyngeal dysphagia, Encounter for long-term (current) use of high-risk medication, Encounter for therapeutic drug monitoring, 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[facility]) * COMPREHENSIVE METABOLIC PANEL(Performed 12/04/2021) Performed for Oropharyngeal dysphagia, Encounter for long-term (current) use of high-risk medication, Encounter for therapeutic drug monitoring, 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[facility]) * COMPLETE PFT W/WO BRONCHODILATOR(Performed 08/20/2021) Performed for Chronic cough, Dyspnea on exertion, Dermatomyositis ([facility]) * MYOSITIS 11 ANTIBODY PNL(Performed 01/15/2021) Performed for Encounter for long-term (current) use of high-risk medication, Encounter for therapeutic drug monitoring, 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[facility]) * LDH BLOOD(Performed 01/15/2021) Performed for Encounter for long-term (current) use of high-risk medication, Encounter for therapeutic drug monitoring, 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[facility]) * CK BLOOD(Performed 01/15/2021) Performed for Encounter for long-term (current) use of high-risk medication, Encounter for therapeutic drug monitoring, 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[facility]) * ALDOLASE(Performed 01/15/2021) Performed for Encounter for long-term (current) use of high-risk medication, Encounter for therapeutic drug monitoring, 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[facility]) * URINALYSIS W/MICROSCOPIC REFLEX TO CULTURE(Performed 01/15/2021) Performed for Encounter for long-term (current) use of high-risk medication, Encounter for therapeutic drug monitoring, 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[facility]) * ERYTHROCYTE SEDIMENTATION RATE(Performed 01/15/2021) Performed for [...] loss, Abdominal pain, unspecified abdominal location * FL ED EGD FLEX TRANSORAL DX(Performed 04/04/2020) Performed [...] (ABNORMAL) EXTENDED MYOSITIS PANEL (06/21/2024 8:20 AM RECONCILIATION SPECIALIST) Makayla-1 Antibody <11 <[address] [facility] [address]-7 Antibody <11 <[address]-12 Antibody <11 <11 [facility] EJ Antibody <11 <11 [facility] OJ Antibody <11 <11 [facility] SRP Antibody <11 <11 [facility] FL-2 Alpha Antibody <11 <11 [facility] FL-2 Beta Antibody <11 <11 [facility] MDA-5 [...] with a rash. Additionally, MSAs to MDA5 ([id number]) have been identified in patients with clinically [...] analytical performance characteristics have been determined by [employer]. It has not been cleared or approved by the FDA. This assay has been validated pursuant to the CLIA regulations and is used for clinical purposes. HMGCR AB IGG <2 <20 CU [facility] Comment: 0-Iabzgwh-3-Methylglutaryl-Coenzyme A Reductase (HMGCR) Ab is associated with [...] analytical performance characteristics have been determined by [employer]. It has not been cleared or approved by FDA. This assay has been validated pursuant to the CLIA regulations and is used for clinical purposes. REPORT COMMENT: FASTING:YES Test Performed at: [facility] [address] [place] [address] SARAH MARTINES MD,PHD,GIORGI 06/21/2024 8:20 AM RECONCILIATION SPECIALIST 06/21/2024 8:20 AM RECONCILIATION SPECIALIST Linda Pennington MD LAB - CHEMISTR Y ORDERABLES Performing Organization Address [facility] [[email or web address]] [place] [address] * CULTURE URINE REFLEXED III (06/21/2024 7:58 AM RECONCILIATION SPECIALIST) Only the most recent of4 resultswithin the time period is included. Reflexive Urine Culture See Below [facility] Comment: NO CULTURE INDICATED REPORT COMMENT: FASTING:YES Test Performed at: [email or web address] [address] SIRIA MOFFETT MD 06/21/2024 7:58 AM RECONCILIATION SPECIALIST 06/21/2024 8:13 AM RECONCILIATION SPECIALIST Linda Pennington MD LAB - MICROBIO LOGY ORDERABLES Performing Organization Address [facility] [place] [address] * URINALYSIS W/MICROSCOPIC REFLEX TO CULTURE (06/21/2024 7:58 AM RECONCILIATION SPECIALIST) Only the most recent of9 resultswithin the time period is included. Color UA YELLOW YELLOW [facility] Appearance CLEAR CLEAR [facility] Specific Cactus UA 1.009 1.001 - 1.035 [facility] pH [...] elements seen were reported. Test Performed at: [email or web address] [address] SIRIA MOFFETT MD Urine MID-STREAM URINE SPECIMEN / Unknown 06/21/2024 7:58 AM RECONCILIATION SPECIALIST 06/21/2024 8:13 AM RECONCILIATION SPECIALIST Linda Pennington MD LAB - URINALYS IS ORDERABLES Performing Organization Address [facility] [[email or web address]] Co de Phone Number [address] [address] * C-REACTIVE PROTEIN (06/21/2024 7:58 AM RECONCILIATION SPECIALIST) Only the most recent of11 resultswithin the time period is included. C-Reactive Protein <5.0 <8.0 mg/L [facility] Comment: REPORT COMMENT: FASTING:YES Test Performed at: [employer] [address] [address] SIRIA MOFFETT MD Blood BLOOD SPECIMEN / Unknown 06/21/2024 7:58 AM RECONCILIATION SPECIALIST 06/21/2024 8:13 AM RECONCILIATION SPECIALIST Linda Pennington MD LAB - CHEMISTR Y ORDERABLES Performing Organization Address [facility] [[email or web address]] Co de Phone Number [address] [address] * ERYTHROCYTE SEDIMENTATION RATE (06/21/2024 7:58 AM RECONCILIATION SPECIALIST) Only the most recent of11 resultswithin the time period is included. Erythrocyte Sedimentation Rate Westergren 11 < OR = 20 mm/h [facility] Comment: Test Performed at: [email or web address] [address] SIRIA MOFFETT MD Blood BLOOD SPECIMEN / Unknown 06/21/2024 7:58 AM RECONCILIATION SPECIALIST 06/21/2024 8:13 AM RECONCILIATION SPECIALIST Linda Pennington MD LAB - HEMATOLO GY ORDERABLES Performing Organization Address [facility] [[email or web address]] Co de Phone Number [facility] [phone] [place] [address] * CBC WITH DIFFERENTIAL (06/21/2024 7:58 AM RECONCILIATION SPECIALIST) Only the most recent of15 resultswithin the [...] 0.9 % [facility] Comment: Test Performed at: [email or web address] [address] SIRIA MOFFETT MD Blood BLOOD SPECIMEN / Unknown 06/21/2024 7:58 AM RECONCILIATION SPECIALIST 06/21/2024 8:13 AM RECONCILIATION SPECIALIST Linda Pennington MD LAB - HEMATOLO GY ORDERABLES Performing Organization Address City/[facility]/ZIP Co de Phone Number [facility] [address] [place] [phone] * COMPREHENSIVE METABOLIC PANEL (06/21/2024 7:58 AM RECONCILIATION SPECIALIST) Only the most recent of15 resultswithin the [...] 29 U/L [facility] Comment: Test Performed at: [email or web address] [address] SIRIA MOFFETT MD Blood BLOOD SPECIMEN / Unknown 06/21/2024 7:58 AM RECONCILIATION SPECIALIST 06/21/2024 8:13 AM RECONCILIATION SPECIALIST Linda Pennington MD LAB - CHEMISTR Y ORDERABLES [address] [address] * CULTURE URINE (11/05/2023 2:22 PM CDT) Only the most recent of3 resultswithin the time period is included. Pathologist [facility] Culture Urine 50,000-100,000 CFU/mL urogenital nneka AURDEY 11/07/2023 2:11 AM CDT [facility] MICROBIOLOG[facility] Urine MID-STREAM URINE SPECIMEN / Unknown Collection / Unknown 11/05/2023 2:22 PM CDT 11/05/2023 3:17 PM CDT Linda Pennington MD LAB - MICROBIO LOGY ORDERABLES [facility] MICROBIOLOGY [address] [place] [address], [facility] [phone] * CK BLOOD (11/05/2023 2:15 PM CDT) Only the most recent of10 resultswithin the time period is included. [facility] CK Total 99 30 - 200 U/L 11/05/2023 3:00 PM CDT [facility] Blood BLOOD SPECIMEN / Unknown Lab Venipuncture / Unknown 11/05/2023 2:15 PM CDT 11/05/2023 2:32 PM CDT Linda Pennington MD LAB - CHEMISTR Y ORDERABLES [facility] [address] [place] [address], [facility] [phone] * ALDOLASE (06/10/2023 9:27 AM RECONCILIATION SPECIALIST) Only the most recent of8 resultswithin the time period is included. [facility] Aldolase 3.2 < OR = 8.1 U/L [facility] Comment: Test Performed at: [facility] [address] [place] [address] SIRIA MOFFETT MD Blood BLOOD SPECIMEN / Unknown 06/10/2023 9:27 AM RECONCILIATION SPECIALIST 06/10/2023 9:28 AM RECONCILIATION SPECIALIST Linda Pennington MD LAB - CHEMISTR Y ORDERABLES [employer] [address] [place] [address] * LDH BLOOD (06/10/2023 9:27 AM RECONCILIATION SPECIALIST) Only the most recent of6 resultswithin the time period is included. [facility] LD-Total 114 100 - 200 U/L [facility] Comment: Test Performed at: [email or web address] [address] SIRIA MOFFETT MD Blood BLOOD SPECIMEN / Unknown 06/10/2023 9:27 AM RECONCILIATION SPECIALIST 06/10/2023 9:28 AM RECONCILIATION SPECIALIST Linda Pennington MD LAB - CHEMISTR Y ORDERABLES Performing Organization Address [facility]/ZIP Co de Phone Number [address] [address] * CKMB (12/16/2022 1:13 PM CDT) [facility] CK-MB (CK2) 1.2 0 - 5.0 ng/mL [employer] Comment: Test Performed at: [facility] [address] [place] [address] SIRIA MOFFETT MD 12/16/2022 1:13 PM CDT 12/16/2022 1:16 PM CDT Linda Pennington MD LAB - CHEMISTR Y ORDERABLES Performing Organization Address [facility] de Phone Number [address] [address] * (ABNORMAL) MYOSITIS ANTIBODY PANEL COMPREHENSIVE (11/05/2022 3:44 PM CDT) Only the most recent of3 resultswithin the time period is included. [facility] SAE1 (SUMO activating enzyme) Ab Negative Negative 11/12/2022 7:11 PM CDT [facility] NXP2 (Nuclear matrix protein-2) Ab Low Positive(A ) Negative 11/12/2022 7:11 PM CDT [facility] Comment: Low positive reactivity to nuclear matrix protein (NXP2) detected. Strong clinical correlation is recommended. MDA5 (CADM-140) Ab Negative Negative 2022 7:11 PM CDT [facility] TIF-1 gamma (155 kDa) Ab Negative Negative 11/12/2022 7:11 PM CDT [facility] Myositis Panel Interpretive Data See Note 11/12/2022 7:11 PM CDT [facility] Comment: INTERPRETIVE INFORMATION: Extended Myositis Panel If [...] . . . . . . X Patton/PATIENT SCHEDULER (COURT) Ab, IgG . . . . [...] . . . . X Fibrillarin (U3 PATIENT SCHEDULER) Ab, IgG . . . . . [...] developed and its performance characteristics determined by [employer]. It has not been cleared or approved by the US Food and Drug Administration. This test was performed in a CLIA certified laboratory and is intended for clinical purposes. Mi-2 Antibody Negative Negative 11/12/2022 7:11 PM CDT [facility]) P155/140 Antibody Negative Negative 023 7:11 PM CDT [facility] PL-12 Antibody Negative Negative 11/12/2022 7:11 PM CDT [facility] PL-7 Antibody Negative Negative 11/12/2022 7:11 PM CDT [facility] OJ Antibody Negative Negative 11/12/2022 7:11 PM CDT [facility] EJ Antibody Negative Negative 11/12/2022 7:11 PM CDT [facility] SRP Antibody Negative Negative 11/12/2022 7:11 PM CDT [facility] Makayla-1 Antibody IgG 7 0 - 40 AU/mL 11/12/2022 7:11 PM CDT [facility] Comment: INTERPRETIVE INFORMATION: Makayla-1 Antibody, IgG 29 AU/mL or less.........Negative 30-40 AU/mL..............Equivocal 41 AU/mL or greater......Positive Presence of Makayla-1 (antihistidyl transfer RNA [t-RNA] synthetase) antibody is associated with polymyositis and may also be seen in patients with dermatomyositis. Makayla-1 antibody is associated with pulmonary involvement (interstitial lung disease), Raynaud phenomenon, arthritis, and tire mechanic's hands (implicated in antisynthetase syndrome). KU Antibody Negative Negative 11/12/2022 7:11 PM CDT [facility] Patton/PATIENT SCHEDULER (COURT) Antibody IgG 2 0 - 19 Units 11/12/2022 7:11 PM CDT [facility] Comment: INTERPRETIVE INFORMATION: Patton/PATIENT SCHEDULER (COURT) Antibody, IgG 19 Units or Less ............. Negative 20 to 39 Units ............... Weak Positive 40 to 80 Units ............... Moderate Positive 81 Units or greater .......... Strong Positive Patton/PATIENT SCHEDULER antibodies are frequently seen in patients with mixed connective tissue disease (MCTD) and are also associated with other systemic autoimmune rheumatic diseases (SARDs) such as systemic lupus erythematosus (SLE), systemic sclerosis, and myositis. Antibodies targeting the Patton/PATIENT SCHEDULER antigenic complex also recognize Patton antigens, therefore, the Patton antibody response must be considered when interpreting these results. PM/Scl 100 Antibody IgG Negative Negative 11/12/2022 7:11 PM CDT [facility] Comment: INTERPRETIVE INFORMATION: PM/Scl-100 Antibody, IgG by [...] developed and its performance characteristics determined by [employer]. It has not been cleared or approved by the US Food and Drug Administration. This test was performed in a CLIA certified laboratory and is intended for clinical purposes. SS-A 52 Antibody 5 0 - 40 AU/mL 11/12/2022 7:11 PM CDT [facility] Comment: INTERPRETIVE INFORMATION: SSA-52 (Ro52) (COURT) Antibody, [...] - 40 AU/mL 11/12/2022 7:11 PM CDT [facility] ([facility] Comment: REFERENCE INTERVAL: SSA-60 (Ro60) (COURT) Antibody, IgG 29 AU/mL or Less ............. Negative 30 - 40 AU/mL ................ Equivocal 41 AU/mL or Greater .......... Positive Fibrillarin (U3 PATIENT SCHEDULER) Antibody IgG Negative Negative 11/12/2022 7:11 PM CDT [facility] Comment: Interpretive Information: Fibrillarin (U3 PATIENT SCHEDULER) Antibody, IgG The presence of fibrillarin (U3-PATIENT SCHEDULER) IgG antibodies in association with an BENNETT [...] a multi-ethnic cohort of SSc patients (n=98), U3-PATIENT SCHEDULER antibodies detected by immunoblot had an agreement of 98.9 percent with the gold standard immunoprecipitation (IP) assay. Approximately 71 percent (5/7) of the borderline U3-PATIENT SCHEDULER results with BENNETT nucleolar pattern in this cohort were IP negative. This test was developed and its performance characteristics determined by [employer]. It has not been cleared or approved by the US Food and Drug Administration. This test was performed in a CLIA certified laboratory and is intended for clinical purposes. Performed by [employer], [address] [place] [id number] [email or web address], Jax Mitchell MD, PHD, Lab. Director Blood BLOOD SPECIMEN / Unknown Lab Venipuncture / Unknown 11/05/2022 3:44 PM CDT 11/05/2022 4:04 PM CDT Linda Pennington MD LAB - CHEMISTR Y ORDERABLES [facility] [address] [place] [address], [facility] * CULTURE URINE REFLEXED II (06/17/2022 9:41 AM RECONCILIATION SPECIALIST) Only the most recent of2 resultswithin the time period is included. Reflexive Urine Culture See Below [facility] Comment: CULTURE INDICATED - RESULTS TO FOLLOW Test Performed at: [address] [address] SIRIA MOFFETT MD 06/17/2022 9:41 AM RECONCILIATION SPECIALIST 06/17/2022 9:42 AM RECONCILIATION SPECIALIST Linda Pennington MD LAB - MICROBIO LOGY ORDERABLES Performing Organization Address City/[facility]/ZIP Co de Phone Number [address] [address] * OCT (01/15/2022 9:53 AM CDT) Anatomical [...] <0.010 <0.032 ng/mL 12/18/2021 8:49 PM CDT [facility] Blood BLOOD SPECIMEN / Unknown Venipuncture / Unknown 12/18/2021 8:05 PM CDT 12/18/2021 8:09 PM CDT Dmitriy Goff PA-C LAB - CHEMISTRY [facility] [address] [place] [phone] [phone] * XR CHEST PA AND LATERAL (12/18/2021 12:27 PM CDT) Anatomical Region Laterality Modality Chest Radiographic Shalini ging 12/18/2021 1:05 PM CDT Impressions 12/18/2021 1:22 PM CDT IMPRESSION: No acute cardiopulmonary process. > Dictated by Angelica Piper MD (front loader residential driver). Claribel Danielle MD have personally reviewed and [...] process. > Dictated by Angelica Piper MD (front loader residential driver). Claribel Danielle MD have personally reviewed and interpreted this examination/study. > Interpreting Provider: Claribel Paula MD on 12/18/2021 1:22 PM Dmitriy Goff PA-C DIAGNOSTIC IMAGING O RDERABLES * SARS-COV-2 (COVID-19) RAPID (12/18/2021 12:11 PM CDT) COVID-19 PCR Not detected Not detected 12/19/19 1:01 PM CDT [facility] Microbiology SPECIMEN FROM NASOPHARYNGEAL STRUCTURE / Unknown Collection / Unknown 12/18/2021 12:11 PM CDT 12/18/2021 12:17 PM CDT Narrative [facility] - 12/18/2021 1:01 PM CDT The [...] Goff PA-C LAB - MICROBIOLOGY O RDERABLES [facility] [address] [place] [phone], [facility] [phone] * HCG BETA BLOOD QUANTITATIVE (12/18/2021 12:11 PM CDT) Beta-hCG Total Quantitative <3 mIU/mL 12/18/2021 1:03 PM CDT [facility] Comment: This assay is cleared for [...] Goff PA-C LAB - CHEMISTRY ORDE RABLES [facility] [address] [place] [address], [facility] [phone] * (ABNORMAL) URINALYSIS REFLEX TO MICROSCOPIC NO CULTURE (12/18/2021 12:04 PM CDT) Color UA Yellow Straw, Yellow 12/18/2021 12:29 PM [facility] Clarity UA Slt Cloudy(A) Clear 12/18/2021 12:29 PM [facility] Specific Cactus UA 1.008 1.005 - 1.030 12/18/2021 12:29 PM [facility] pH UA 8.0 5.0 - 8.0 pH 12/18/2021 12:29 PM [facility] Protein UA Negative Negative 12/18/2021 12:29 PM [facility] Glucose UA Negative Negative 12/18/2021 12:29 PM [facility] Ketone UA Negative Negative 12/18/2021 12:29 PM [facility] Bilirubin UA Negative Negative 12/18/2021 12:29 PM [facility] Blood UA 1+(A) Negative 12/18/2021 12:29 PM [facility] Nitrite UA Negative Negative 12/18/2021 12:29 PM [facility] Leukocyte Esterase Negative Negative 12/18/2021 12:29 PM [facility] Urobilinogen UA Negative Negative mg/dL 12/18/2021 12:29 PM [facility] RBC UA 0-2 None Seen, 0-2, 3-5 /HPF 12/18/2021 12:29 PM [facility] WBC UA 0-5 None Seen, 0-5 /HPF 12/18/2021 12:29 PM [facility] Squamous Epithelial Cells UA 6-10(A) None Seen, 0-2, 3-5 /HPF 12/18/2021 12:29 PM [facility] Mucus UA 1+ /LPF 12/18/2021 12:29 PM [facility] Urine URINE SPECIMEN OBTAINED BY CLEAN CATCH PROCEDURE / Unknown Collection / Unknown 12/18/2021 12:04 PM CDT 12/18/2021 12:08 PM CDT Narrative [facility] - 12/18/2021 12:29 PM CDT Dmitriy Goff PA-C LAB - URINALYSIS ORD ERABLES Performing Organization Address [facility] [[email or web address]] Co de Phone Number [facility] [address] [place] [address], [facility] [phone] * EKG 12-LEAD (12/18/2021 11:52 AM CDT) Ventricular Rate 71 BPM [facility] Atrial Rate 71 BPM [facility] P-R Interval 152 ms [facility] QRS Duration ms 72 ms [facility] Q-T Interval ms 396 ms [facility] QTC Calculation (Bezet) 430 ms [facility] Calculated P Grady 79 degrees [facility] MUSE Calculated R Grady 82 degrees [facility] Calculated T Grady 69 degrees [facility] Interpretation EKG NORMAL SINUS RHYTHM LOW VOLTAGE QRS BORDERLINE ECG NO PREVIOUS ECGS AVAILABLE Confirmed by Freedom Pineda ([id number]) on 12/18/2021 9:27:07 PM [facility] 12/18/2021 11:5 2 AM CDT 12/18/2021 9:27 PM CDT Dmitriy Goff PA-C ECG ORDERABLES Performing Organization Address [facility] de Phone Number [facility] * FL SWALLOWING FUNCTION STUDY (12/13/2021 3:08 PM CDT) Anatomical Region Laterality Modality Chest Radiographic Shalini ging 12/14/2021 9:52 AM CDT Narrative 12/14/2021 10:43 AM CDT PROCEDURE: FL SWALLOWING FUNCTION STUDY, DATE/TIME OF EXAM: 12/13/2021 4:02 PM, LOCATION [facility] INDICATION: R13.12: Oropharyngeal dysphagia COMPARISON: None. [...] details. Report dictated by Pietro Issa MD (front loader residential driver). Claribel Danielle MD have personally reviewed and interpreted this examination/study. > Interpreting Provider: Claribel Paula MD on 12/14/2021 10:43 AM Procedure Note Claribel Paula MD - 12/14/2021 PROCEDURE: FL SWALLOWING FUNCTION STUDY, DATE/TIME OF EXAM: 12/13/2021 4:02 PM, LOCATION [facility] INDICATION: R13.12: Oropharyngeal dysphagia COMPARISON: None. [...] details. Report dictated by Pietro Issa MD (front loader residential driver). Claribel Danielle MD have personally reviewed and interpreted this examination/study. > Interpreting Provider: Claribel Paula MD on 12/14/2021 10:43 AM Linda Pennington MD FLUOROSCOPY OR DERABLES * COMPLETE PFT W/WO BRONCHODILATOR (08/20/2021 4:37 PM CDT) Impressions Aime Almaguer MD - 08/20/2021 4:37 PM CDT [facility] DEPARTMENT OF PULMONARY, CRITICAL CARE, AND [...] of Pulmonary, Critical Care, & Sleep Medicine [facility] I have reviewed this study and agree with the interpretation by the Agricultural Crop Farm Manager. Aime Almaguer M.D. Metal Temperer of Internal Medicine Division of Pulmonary, Critical Care and Sleep Medicine [facility] Narrative Aime Almaguer MD - [...] QUEST SRP Antibody <11 <11 SI QUEST FL-2 Alpha Antibody <11 <11 SI QUEST FL-2 Beta Antibody <11 <11 SI QUEST MDA-5 [...] been made. MDA5 antibody, formerly known as [id number] antibody, has been identified in clinically amyopathic [...] analytical performance characteristics have been determined by [employer]. They have not been cleared or approved by the FDA. These assays have been validated pursuant to the CLIA regulations and are used for clinical purposes. Test Performed at: [employer] [facility] [address] [place] [address] LUKE GOMEZ MD Blood BLOOD SPECIMEN / Unknown 01/15/2021 12:43 PM CDT 01/15/2021 12:44 PM CDT Linda Pennington MD LAB - SEROLOGY ORDERABLES [employer] [address] [place] [address] * Corneal Topography (01/15/2021 10:43 AM CDT) [...] BREATH TEST ACQUIRE ANALYZE (05/31/2020 11:11 AM RECONCILIATION SPECIALIST) Anatomical Region Laterality Modality Nuclear Medicine 06/02/2020 12:4 2 PM RECONCILIATION SPECIALIST Impressions 06/02/2020 4:17 PM RECONCILIATION SPECIALIST Impression: Negative Urea Breath Test for H.pylori. This report was approved by Diallo Manuel on 06/02/2020 3:48 PM . I, Dr. AJ SHER D.O. have personally reviewed and interpreted this examination/study. This report was electronically signed by AJ SHER D.O. on 06/02/2020 4:17 PM . Narrative 06/02/2020 4:17 PM RECONCILIATION SPECIALIST PROCEDURE: Urea Breath Test- C-14. HISTORY: 39-year-old [...] collected and the sample was sent to [facility]. These test results are reported upon receiving [...] collected and the sample was sent to [facility]. These test results are reported upon receiving [...] ORDERABLES * PATHOLOGY TISSUE (04/04/2020 12:19 PM RECONCILIATION SPECIALIST) Case Report Surgical Pathology Report Case: [id number] Authorizing Provider: July Mendieta MD Collected: 04/04/2020 12:19 PM [facility] Received: 04/04/2020 01:20 PM Pathologist: Pennie Heard MD Specimen: Gastric, random gastric biopsies 04/05/2020 1:34 PM RECONCILIATION SPECIALIST [facility] PATH[facility] Final Diagnosis Stomach, random, biopsy (A): - Chronic active gastritis with H. pylori organisms 04/05/2020 1:34 PM RECONCILIATION SPECIALIST [facility] PATHOLOG[facility] Microscopic Description and Comment Microscopic examination substantiates the final diagnosis. 04/05/2020 1:34 PM [facility] PATHOLOGY LAB Clinical History The patient is a 39 year old woman who presented with weight loss. Operative procedure/findings: EGD - normal stomach, biopsied. 04/05/2020 1:34 PM [facility] PATHOLOGY LAB Gross Description The requisition and specimen(s) are labeled with the patient's name, Jeanie Collado. Received in formalin, specimen A , are 2 yellow-collazo tissue fragments measuring 0.3 x 0.1 x 0.1 cm and 0.4 x 0.2 x 0.1 cm. Specimen is submitted in toto in cassette A1. KK 04/05/2020 1:34 PM [facility] PATHOLOGY LAB Disclaimer The performance characteristics of all immunohistochemical and indirect immunofluorescence stains (if any) cited in this report were determined by the Histopathology Laboratory of [facility]. Some of these tests were developed [...] the attending (teaching) pathologist. 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 Procedure Code(s): --- Professional --- 50626, Colonoscopy, flexible; diagnostic, including collection of specimen(s) by brushing or washing, when performed (separate procedure) Diagnosis Code(s): --- Professional --- R63.4, Abnormal weight loss CPT copyright 2019 [employer]. All rights reserved. The codes documented in this report are preliminary and upon professional fee coder review may be revised to meet current compliance requirements. July Mendieta MD 04/04/2020 12:59:14 PM Note Initiated On: 04/04/2020 12:03 PM Number of Addenda: [id number] [place] [address] [employer]OVATION 04/04/2020 12:0 3 PM RECONCILIATION SPECIALIST Fermin Jones MD GI PRO CEDURE ORDERABLES [facility] * EGD (04/04/2020 11:57 AM RECONCILIATION SPECIALIST) Report Endoscopy POC Endoscopy Department Report __ _ Patient Name: Jeanie Colldao Procedure Date: 04/04/2020 11:57 AM Date of [...] non-aguilar portions. Procedure Code(s): --- Professional --- 28344, Esophagogastroduode noscopy, flexible, transoral; with biopsy, single or multiple Diagnosis Code(s): --- Professional --- R63.4, Abnormal weight loss CPT copyright 2019 [employer]. All rights reserved. The codes documented in this report are preliminary and upon professional fee coder review may be revised to meet current compliance requirements. ___ July Mendieta MD 04/04/2020 12:58:42 PM Note Initiated On: 04/04/2020 11:57 AM Number of Addenda: [address] 04/04/2020 11:5 7 AM RECONCILIATION SPECIALIST Fermin Jones MD GI PRO CEDURE ORDERABLES Performing Organization Address City/[facility] [[email or web address]] Co de Phone Number [facility] * HCG URINE QUALITATIVE - POCT (IP) INTERFACED (04/04/2020 11:14 AM RECONCILIATION SPECIALIST) HCG Qual Urine Negative Negative 04/04/2020 11:21 AM RECONCILIATION SPECIALIST [facility] Urine URINE / Unknown 04/04/2020 1 1:14 AM RECONCILIATION SPECIALIST 04/04/2020 11:21 AM RECONCILIATION SPECIALIST July Mendieta MD LAB - POINT OF CAR E ORDERABLES Performing Organization Address [facility]/State/ZIP Co de Phone Number [facility] [address] [place] [phone], [facility] [phone] * HCG URINE QUAL POCT NOTIFICATION (04/04/2020 11:03 AM RECONCILIATION SPECIALIST) Comment Notification Label Only - See Separate Report 04/04/2020 12:30 PM RECONCILIATION SPECIALIST [facility] Urine URINE / Unknown 04/04/2020 1 1:03 AM RECONCILIATION SPECIALIST 04/04/2020 11:04 AM RECONCILIATION SPECIALIST July Mendieta MD LAB - URINALYSIS O RDERABLES [address] [address], [facility] [phone] * (ABNORMAL) URINALYSIS W/MICROSCOPIC NO CULTURE (01/31/2020 12:23 PM CDT) Only the most recent of2 resultswithin the time period is included. Color UA Yellow Straw, Yellow, Colorless 01/31/2020 12:46 PM [facility] Clarity UA Clear Clear, Slt Cloudy 01/31/2020 12:46 PM [facility] Specific Cactus UA 1.008 1.005 - 1.030 01/31/2020 12:46 PM [facility] pH UA 6.0 5.0 - 8.0 pH 01/31/2020 12:46 PM [facility] Protein UA Negative Negative mg/dL 01/31/2020 12:46 PM [facility] Glucose UA Negative Negative mg/dL 01/31/2020 12:46 PM [facility] Ketone UA Negative Negative mg/dL 01/31/2020 12:46 PM [facility] Bilirubin UA Negative Negative mg/dL 01/31/2020 12:46 PM [facility] Blood UA 3+(A) Negative 01/31/2020 12:46 PM [facility] Nitrite UA Negative Negative 01/31/2020 12:46 PM [facility] Leukocyte Esterase 1+(A) Negative 01/31/2020 12:46 PM [facility] Urobilinogen UA Negative Negative mg/dL 01/31/2020 12:46 PM CDT [facility] RBC UA 51-100(A) None Seen, 0-2, 3-5 /HPF 01/31/2020 12:46 PM CDT [facility] WBC UA 21-50(A) None Seen, 0-5 /HPF 01/31/2020 12:46 PM CDT [facility] Squamous Epithelial Cells UA 3-5(A) None Seen, 0-2 /HPF 01/31/2020 12:46 PM CDT [facility] Urine URINE SPECIMEN OBTAINED BY CLEAN CATCH PROCEDURE / Unknown Collection / Unknown 01/31/2020 12:23 PM CDT 01/31/2020 12:30 PM CDT Narrative [facility] - 01/31/2020 12:46 PM CDT Neena Jo MD LAB - URINALYSIS ORD ERABLES [address] [address], [facility] [phone] * TSH (01/31/2020 12:22 PM CDT) TSH 1.586 0.350 - 4.940 uIU/mL 01/31/2020 1:15 PM CDT [facility] Blood BLOOD SPECIMEN / Unknown Lab Venipuncture / Unknown 01/31/2020 12:22 PM CDT 01/31/2020 12:31 PM CDT Neena Jo MD LAB - CHEMISTRY ORDE RABLES [address] [address], [place] [phone] * T4 FREE (01/31/2020 12:22 PM CDT) T4 Free 1.0 0.7 - 1.5 ng/dL 01/31/2020 1:15 PM CDT [facility] Blood BLOOD SPECIMEN / Unknown Lab Venipuncture / Unknown 01/31/2020 12:22 PM CDT 01/31/2020 12:31 PM CDT Neena Jo MD LAB - CHEMISTRY [address] [place] [address] [place] [address], [facility] [phone] * OCT (01/10/2020 7:25 AM CDT) Anatomical [...] evaluation recommended. Dictated by Anuel Hodges MD (front loader residential driver). I, Dr. FRANSICO NASH have personally reviewed [...] evaluation recommended. Dictated by Anuel Hodges MD (front loader residential driver). I, Dr. FRANSICO NASH have personally reviewed and interpreted this examination/study. This report was electronically signed by FRANSICO NASH on 12/31/2019 5:[address] ORDERABLES * CREATININE - POCT INTERFACED (12/31/2019 11:40 AM CDT) Creatinine POCT 0.41 0.30 - 1.30 mg/dL 12/31/2019 11:58 AM CDT [facility] eGFR >60 >60 mL/min/1.7 3 m2 12/31/2019 11:58 AM CDT [facility] Blood BLOOD SPECIMEN / Unknown 12/31/2019 11:40 AM CDT 12/31/2019 11:58 AM CDT Linwood Valles MD LAB - POINT OF CARE ORDERABLES Performing Organization Address City/State/[facility] [[email or web address]] Co de Phone Number [facility] [address] [place] [phone], [facility] [phone] * XR KNEE RIGHT 2VW OR LESS [...] VON WILLEBRAND ANTIGEN (12/09/2019 4:04 PM CDT) [facility] von Willebrand Factor Antigen 104 50 - 280 U/dL 12/09/2019 4:48 PM CDT [facility] Comment: Biologic population variability within the [...] Pennington MD LAB - COAGULAT ION ORDERABLES [address] [address], [facility] [phone] * SCLERODERMA COMPREHENSIVE AB PANEL (11/16/2019 9:28 AM CDT) BENNETT HEp-2 IgG <1:80 <1:80 11/19/2019 7:42 AM CDT [facility] ([facility] BENNETT Interpretive Comment See Note 11/19/2019 7:42 AM CDT [facility] ([facility] Comment: Antinuclear antibodies by IFA negative for [...] - 40 AU/mL 11/19/2019 7:42 AM CDT [facility] ([facility]) Comment: INTERPRETIVE INFORMATION: Scleroderma (Scl-70) (COURT) Ab, [...] testing for centromere, RNA polymerase III and U3-PATIENT SCHEDULER, PM/Scl, or Th/To antibodies. RNA Polymerase 3 Antibody IgG 4 0 - 19 Units 11/19/2019 7:42 AM [facility] [employer] ([facility]) Comment: INTERPRETIVE INFORMATION: RNA Polymerase III Antibody, [...] antibodies associated with SSc, including centromere, Scl-70, U3-PATIENT SCHEDULER, PM/Scl, or Th/To. Patton/PATIENT SCHEDULER (OCURT) Antibody IgG 15 0 - 40 AU/mL 11/19/2019 7:42 AM [facility] Comment: INTERPRETIVE INFORMATION: Patton/PATIENT SCHEDULER (COURT) Antibody, IgG 29 AU/mL or Less ............. Negative 30 - 40 AU/mL ................ Equivocal 41 AU/mL or Greater .......... Positive Patton/PATIENT SCHEDULER antibodies are frequently seen in patients with mixed connective tissue disease (MCTD) and are also associated with other systemic autoimmune rheumatic diseases (SARDs) such as systemic lupus erythematosus (SLE), systemic sclerosis, and myositis. Antibodies targeting the Patton/PATIENT SCHEDULER antigenic complex also recognize Patton antigens, therefore, the Patton antibody response must be considered when interpreting these results. PM/Scl 100 Antibody IgG Negative Negative 11/19/2019 7:42 AM CDT [employer] ([facility]) Comment: INTERPRETIVE INFORMATION: PM/Scl-100 Antibody, IgG by [...] occur. Test developed and characteristics determined by [employer]. See Compliance Statement D: [employer]/CS Fibrillarin (U3 PATIENT SCHEDULER) Antibody IgG Negative Negative 11/19/2019 7:42 AM CDT [employer] ([facility]) Comment: Interpretive Information: Fibrillarin (U3 PATIENT SCHEDULER) Antibody, IgG The presence of fibrillarin (U3-PATIENT SCHEDULER) IgG antibodies in association with an BENNETT [...] a multi-ethnic cohort of SSc patients (n=98), U3-PATIENT SCHEDULER antibodies detected by immunoblot had an agreement of 98.9 percent with the gold standard immunoprecipitation (IP) assay. Approximately 71 percent (5/7) of the borderline U3-PATIENT SCHEDULER results with BENNETT nucleolar pattern in this cohort were IP negative. Test developed and characteristics determined by [employer]. See Compliance Statement D: [email or web address] Performed By: [employer] [address] [place] [address] Retread Builder: Lance Sandoval MD, MS Blood BLOOD SPECIMEN / Unknown Lab Venipuncture / Unknown 11/16/2019 9:28 AM CDT 11/16/2019 10:24 AM CDT Salbador Choudhary MD LAB - SEROLOGY ORDER ANDREINA [employer] ([facility]) [address] * SS-A (SJOGREN'S) 52+60 ANTIBODIES (11/16/2019 9:28 AM CDT) SS-A 52 Antibody 4 0 - 40 AU/mL 11/18/2019 6:32 AM CDT [facility] [employer] ([facility]) Comment: INTERPRETIVE INFORMATION: SSA-52 (Ro52) (COURT) Antibody, [...] - 40 AU/mL 11/18/2019 6:32 AM CDT [employer] ([facility]) Comment: REFERENCE INTERVAL: SSA-60 (Ro60) (COURT) Antibody, IgG 29 AU/mL or Less ............. Negative 30 - 40 AU/mL ................ Equivocal 41 AU/mL or Greater .......... Positive Performed By: [employer] [address] [place] [address] Retread Builder: Lance Sandoval MD, MS Blood BLOOD SPECIMEN / Unknown Lab Venipuncture / Unknown 11/16/2019 9:28 AM CDT 11/16/2019 10:25 AM CDT Salbador Choudhary MD LAB - CHEMISTRY SHANKAR KATE Performing Organization Address City/[facility]/ZIP Co de Phone Number [facility]) [address] [place] [address] * PATTON (SM) ANTIBODY COURT (11/16/2019 9:28 AM CDT) Pathologist [facility] Patton (COURT) Antibody 2 0 - 40 AU/mL 11/18/2019 6:32 AM CDT [facility] ([facility]) Comment: INTERPRETIVE INFORMATION: Patton (COURT) Antibody, IgG 29 AU/mL or Less ............. Negative 30 - 40 AU/mL ................ Equivocal 41 AU/mL or Greater .......... Positive Patton antibody is highly specific (greater than 90 percent) for systemic lupus erythematosus (SLE) but only occurs in 30-35 percent of SLE cases. The presence of antibodies to Patton has variable associations with SLE clinical manifestations. Performed By: [employer] [address] [place] [address] Retread Builder: Lance Sandoval MD, MS Blood BLOOD SPECIMEN / Unknown Lab Venipuncture / Unknown 11/16/2019 9:28 AM CDT 11/16/2019 10:25 AM CDT Salbador Choudhary MD LAB - CHEMISTRY HSANKAR KATE Performing Organization Address City/[facility]/ZIP Co de Phone Number [facility] ([facility]) [address] [place] [address] * RHEUMATOID FACTOR BLOOD QUANTITATIVE (11/16/2019 9:28 AM CDT) Pathologist [facility] Rheumatoid Factor 16 <30 IU/mL 11/16/2019 1:51 PM CDT [facility] Blood BLOOD SPECIMEN / Unknown Lab Venipuncture / Unknown 11/16/2019 9:28 AM CDT 11/16/2019 10:25 AM CDT Salbador Choudhary MD LAB - CHEMISTRY SHANKAR KATE [address] [address] [phone] * BENNETT BLOOD SCREEN W/REFLEX TITER (11/16/2019 9:28 AM CDT) BENNETT IgG None Detected None Detected 11/18/2019 3:12 PM CDT [facility] [employer] ([facility]) Comment: If suspicion of connective tissue disease is strong and BENNETT EIA is negative, consider testing for BENNETT by IFA ([id number]). INTERPRETIVE INFORMATION: Anti-Nuclear Antibodies (BENNETT), IgG by STACE[employer] Antinuclear Antibodies (BENNETT), IgG by STACEY: BENNETT specimens are screened using enzyme-linked immunosorbent assay (STACEY) methodology. All STACEY results reported as Detected are further tested by indirect fluorescent assay (IFA) using HEp-2 substrate with an IgG-specific conjugate. The BENNETT STACEY screen is designed to detect antibodies against dsDNA, histones, SS-A (Ro), SS-B (La), Patton, Patton/PATIENT SCHEDULER, Scl-70, Makayla-1, centromeric proteins, other antigens extracted from the HEp-2 cell nucleus. BENNETT STACEY assays have been reported to have lower sensitivities than BENNETT IFA for systemic autoimmune rheumatic diseases (SARD). Negative results do not necessarily rule out SARD. Performed By: [employer] [address] [place] [address] Retread Builder: Lance Sandoval MD, MS Blood BLOOD SPECIMEN / Unknown Lab Venipuncture / Unknown 11/16/2019 9:28 AM CDT 11/16/2019 10:25 AM CDT Salbador Choudhary MD LAB - CHEMISTRY SHANKAR KATE [facility] [employer] [facility]) [address] * SS-B (SJOGREN'S) ANTIBODY (11/16/2019 9:28 AM CDT) SS-B Antibody 1 0 - 40 AU/mL 11/18/2019 6:32 AM CDT [facility] [employer] ([facility]) Comment: INTERPRETIVE INFORMATION: SSB (La) (COURT) Ab, [...] (PSS) also have this antibody. Performed By: [facility] [employer] [address] [place] [address] Retread Builder: Lance Sandoval MD, MS Blood BLOOD SPECIMEN / Unknown Lab Venipuncture / Unknown 11/16/2019 9:28 AM CDT 11/16/2019 10:25 AM CDT Salbador Choudhary MD LAB - CHEMISTRY SHANKAR KATE [facility] [employer] [facility]) [address] [place] [address], [facility] * DNA ANTIBODY DOUBLE STRANDED (11/16/2019 9:28 AM CDT) [facility] dsDNA Antibody None Detected None Detected 11/18/2019 4:55 PM CDT [facility] ([facility]) Comment: INTERPRETIVE INFORMATION: Double-Stranded DNA (dsDNA) Antibody, [...] recommendations for testing may be found at http://www.[email or web address]/Topics/AutoimmuneDz/ConnectiveTissueDz/i ndex.html. Performed By: [employer] [address] [place] [address] Retread Builder: Lance Sandoval MD, MS Blood BLOOD SPECIMEN / Unknown Lab Venipuncture / Unknown 11/16/2019 9:28 AM CDT 11/16/2019 10:25 AM CDT Salbador Choudhary MD LAB - HEMATOLOGY ORD ERARICHARD Performing Organization Address City/[facility]/ZIP Co de Phone Number [facility]) [address] [place] [address] * MAKAYLA-1 ANTIBODY (11/16/2019 9:28 AM CDT) Pathologist [facility] Makayla-1 Antibody IgG 3 0 - 40 AU/mL 11/18/2019 6:32 AM CDT [facility] [employer] ([facility]) Comment: INTERPRETIVE INFORMATION: Makayla-1 Antibody, IgG 29 AU/mL or less.........Negative 30-40 AU/mL..............Equivocal 41 AU/mL or greater......Positive Presence of Makayla-1 (antihistidyl transfer RNA [t-RNA] synthetase) antibody is associated with polymyositis and may also be seen in patients with dermatomyositis. Makayla-1 antibody is associated with pulmonary involvement (interstitial lung disease), Raynaud phenomenon, arthritis, and tire mechanic's hands (implicated in antisynthetase syndrome). Performed By: [employer] [address] [place] [address] Retread Builder: Lance Sandoval MD, MS Blood BLOOD SPECIMEN / Unknown Lab Venipuncture / Unknown 11/16/2019 9:28 AM CDT 11/16/2019 10:25 AM CDT Salbador Choudhary MD LAB - CHEMISTRY SHANKAR KATE Performing Organization Address City/[facility]/ZIP Co de Phone Number [facility] [address] [place] [address] * CYCLIC CITRULLINATED PEPTIDE(CCP) AB IGG (11/16/2019 9:28 AM CDT) CCP Antibody IgG 0.5 <5.0 U/mL 11/16/2019 2:21 PM CDT [facility] Blood BLOOD SPECIMEN / Unknown Lab Venipuncture / Unknown 11/16/2019 9:28 AM CDT 11/16/2019 10:25 AM CDT Salbador Choudhary MD LAB - CHEMISTRY SHANKAR KATE [address] [address] [phone] * DERMATOPATHOLOGY (09/06/2019 12:00 AM CDT) Case Report Dermatopathology Report Case: [id number] Authorizing Provider: Rosie Mary MD Collected: 09/06/2019 12:00 AM Ordering Location: [facility] Lab Received: 09/07/2019 06:47 AM Pathologist: [...] The specimen consists of a punch measuring [id number], bisected. Jar 0. 0 3:10 PM CDT [...] characteristic determined by the Dermatopathology Laboratory at [facility], directed by Dr. Elian Jo. These tests need not be, and therefore are not, approved by the [place] Food and Drug Administration. The tests are used for clinical purposes. Billing Codes Specimen Charges Stain Charges 02540 1 37401 53379 1 1 0 3:10 PM CDT DERMATOPATHOLOGY LABORATORY Embedded Images 0 3:10 PM CDT DERMATOPATHOLOGY LABORATORY Pathology/Cytolog y TISSUE SPECIMEN FROM SKIN / Unknown 09/06/2019 09/07/2019 6:47 AM CDT Rosie Mary MD LAB - PATHOLOGY/CYTO LOGY ORDERABLES DERMATOPATHOLOGY LABORATORY [facility] - Department of Dermatology [facility], 5th Floor Lab B [address] [phone] Care Teams Salad Bar Clerk Relationship Specialty Start Date End Date Tasha Perez PA-C [address] [place] [phone] PCP - General 10/08/19
--- OUTSIDE RECORDS SUMMARY | 2024-06-29 21:31 | XMS_ITS | Clinical Summary ---
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
--- OUTSIDE RECORDS SUMMARY | 2024-06-29 21:31 | XMS_ITS | Clinical Summary ---
Author Organization [facility] Address [address] [place] [address] Care Team Providers Care Managing Manager Name Role Phone Tasha Perez PA-C Primary Care Provider Source Comments [facility],non-owned Affiliates and Associated Physician Practices is amultiple site organization consisting of ambulatory clinics and hospital sitesin [place], [place], [place] and [place]. This disclosure is being madepursuant to the Care Everywhere program and may not contain all information available regarding this patient. Last updated 18.[facility] Allergies No known active allergies Medications * [...] Last Assessment & Plan: Will send to [facility] now for outpatient covid 19 testing. Patient [...] protection Assessment & Plan (05/31/2020 1:45 PM FIELD EXAMINER): Improved -Continue HCQ 200mg daily -Continue Desonide [...] visit Assessment & Plan (05/31/2020 4:27 PM FIELD EXAMINER): Hydroxychloroquine - CBC and CMP ordered to [...] 06/21/2024 Telephone [facility] - Rheumatology [address] [place] [address], [place] [phone] Linda Pennington MD Question 06/21/2024 Telephone [facility] - Rheumatology [address] [place] [phone] Linda Pennington MD Requesting Labs 06/15/2024 3:20 PM FIELD EXAMINER Office Visit [facility] Rheumatology [address] [place] [address] [place] [address] Linda Pennington MD Adult onset amyopathic dermatomyositis (HCC) (Primary Dx); Encounter for long-term (current) use of high-risk medication; Encounter for therapeutic drug monitoring; Dermatomyositis (HCC) 06/15/2024 Travel from Last 3 Months Immunizations Name Administration Dates Next Due INFLUENZA VACCINE, TRIV. (AF LURIA, FLUZONE TRIVALENT; 6MO+) (IIV3) 05/06/2014,03/19/2013 Covid [employer] primary monoval ent 12+ yr 0.3mL Purple [...] Comments Blood Pressure 120/73 06/15/2024 3:28 PM FIELD EXAMINER Pulse 78 06/15/2024 3:28 PM FIELD EXAMINER Temperature 36.1 C (97 F) 06/15/2024 3:28 PM FIELD EXAMINER Respiratory Rate 16 12/18/2021 6:24 PM CDT Oxygen Saturation 98% 06/15/2024 3:28 PM FIELD EXAMINER Inhaled Oxygen Concentration - - Weight 58 kg (127 lb 12.8 oz) 06/15/2024 3:28 PM FIELD EXAMINER Height 162.6 cm (5' 4 ) 06/15/2024 3:28 PM FIELD EXAMINER Body Mass Index 21.94 06/15/2024 3:28 PM FIELD EXAMINER Plan of Treatment Upcoming Encounters Date Type Department Care Team (Late st Contact Info) Description 10/13/2024 2:40 PM CDT Office Visit [facility] - Rheumatology [address] [place] [address], [facility] [phone] Linda Pennington MD [address] [place] [address] [place] [phone] Health Maintenance Due Date Last Done Comments [...] Comments EXTENDED MYOSITIS PANEL 06/21/2024 8:20 AM FIELD EXAMINER URINALYSIS W/MICROSCOPIC REFLEX TO CULTURE Routine 06/21/2024 7:58 AM FIELD EXAMINER Adult onset amyopathic dermatomyositis (HCC) Encounter for long-term (current) use of high-risk medication Encounter for therapeutic drug monitoring ERYTHROCYTE SEDIMENTATION RATE Routine 06/21/2024 7:58 AM FIELD EXAMINER Adult onset amyopathic dermatomyositis (HCC) Encounter for long-term (current) use of high-risk medication Encounter for therapeutic drug monitoring C-REACTIVE PROTEIN Routine 06/21/2024 7: 58 AM FIELD EXAMINER Adult onset amyopathic dermatomyositis (HCC) Encounter for long-term (current) use of high-risk medication Encounter for therapeutic drug monitoring COMPREHENSIVE METABOLIC PANEL Routine 06/21/2024 7:58 AM FIELD EXAMINER Adult onset amyopathic dermatomyositis (HCC) Encounter for long-term (current) use of high-risk medication Encounter for therapeutic drug monitoring CBC W AUTO DIFFERENTIAL Routine 06/21/2024 7:58 AM FIELD EXAMINER Adult onset amyopathic dermatomyositis (HCC) Encounter for long-term (current) use of high-risk medication Encounter for therapeutic drug monitoring CULTURE URINE REFLEXED III 06/21/2024 7:58 AM FIELD EXAMINER from Last 3 Months Results * (ABNORMAL) EXTENDED MYOSITIS PANEL (06/21/2024 8:20 AM FIELD EXAMINER) Makayla-1 Antibody <11 <[address] [facility] [address]-7 Antibody <11 <[address]-12 Antibody <11 <11 [facility] EJ Antibody <11 <11 [facility] OJ Antibody <11 <11 [facility] SRP Antibody <11 <11 [facility] UT-2 Alpha Antibody <11 <11 SI [facility] UT-2 Beta Antibody <11 <11 SI [facility] MDA-5 [...] with a rash. Additionally, MSAs to MDA5 ([id number]) have been identified in patients with clinically [...] analytical performance characteristics have been determined by [employer]. It has not been cleared or approved by the FDA. This assay has been validated pursuant to the CLIA regulations and is used for clinical purposes. HMGCR AB IGG <2 <20 CU [facility] Comment: 1-Ykuvhzi-1-Methylglutaryl-Coenzyme A Reductase (HMGCR) Ab is associated with [...] analytical performance characteristics have been determined by [employer]. It has not been cleared or approved by FDA. This assay has been validated pursuant to the CLIA regulations and is used for clinical purposes. REPORT COMMENT: FASTING:YES Test Performed at: [facility] [address] [place] [address] SARAH MARTNIES MD,PHD,GIORGI 06/21/2024 8:20 AM FIELD EXAMINER 06/21/2024 8:20 AM FIELD EXAMINER Linda Pennington MD LAB - CHEMISTR Y ORDERABLES [facility] [address] [place] [address] * CULTURE URINE REFLEXED III (06/21/2024 7:58 AM FIELD EXAMINER) Reflexive Urine Culture See Below [facility] Comment: NO CULTURE INDICATED REPORT COMMENT: FASTING:YES Test Performed at: [id number] [address] SIRIA MOFFETT MD 06/21/2024 7:58 AM FIELD EXAMINER 06/21/2024 8:13 AM FIELD EXAMINER Linda Pennington MD LAB - MICROBIO LOGY ORDERABLES Performing Organization Address [facility]/ZIP Co de Phone Number [address] [address] * URINALYSIS W/MICROSCOPIC REFLEX TO CULTURE (06/21/2024 7:58 AM FIELD EXAMINER) Color UA YELLOW YELLOW [facility] Appearance CLEAR CLEAR [facility] Specific [place] UA 1.009 1.001 - 1.035 [facility] pH [...] elements seen were reported. Test Performed at: [id number] [address] SIRIA MOFFETT MD Urine MID-STREAM URINE SPECIMEN / Unknown 06/21/2024 7:58 AM FIELD EXAMINER 06/21/2024 8:13 AM FIELD EXAMINER Linda Pennington MD LAB - URINALYS IS ORDERABLES Performing Organization Address [facility]/ZIP Co de Phone Number [address] [address] * C-REACTIVE PROTEIN (06/21/2024 7:58 AM FIELD EXAMINER) [facility] C-Reactive Protein <5.0 <8.0 mg/L [facility] Comment: REPORT COMMENT: FASTING:YES Test Performed at: [address] [address] SIRIA MOFFETT MD Blood BLOOD SPECIMEN / Unknown 06/21/2024 7:58 AM FIELD EXAMINER 06/21/2024 8:13 AM FIELD EXAMINER Linda Pennington MD LAB - CHEMISTR Y ORDERABLES Performing Organization Address [facility] Co de Phone Number [address] [address] * ERYTHROCYTE SEDIMENTATION RATE (06/21/2024 7:58 AM FIELD EXAMINER) [facility] Erythrocyte Sedimentation Rate Westergren 11 < OR = 20 mm/h [facility] Comment: Test Performed at: [address] [address] SIRIA MOFFETT MD Blood BLOOD SPECIMEN / Unknown 06/21/2024 7:58 AM FIELD EXAMINER 06/21/2024 8:13 AM FIELD EXAMINER Linda Pennington MD LAB - HEMATOLO GY ORDERABLES Performing Organization Address [facility] de Phone Number [address] [address] * CBC WITH DIFFERENTIAL (06/21/2024 7:58 AM FIELD EXAMINER) [facility] White Blood Cell Count 5.4 3.8 [...] 0.9 % [facility] Comment: Test Performed at: [id number] [address] SIRIA MOFFETT MD Blood BLOOD SPECIMEN / Unknown 06/21/2024 7:58 AM FIELD EXAMINER 06/21/2024 8:13 AM FIELD EXAMINER Linda Pennington MD LAB - HEMATOLO GY ORDERABLES [address] [address] * COMPREHENSIVE METABOLIC PANEL (06/21/2024 7:58 AM FIELD EXAMINER) Pathologist [facility] Glucose 85 65 - 99 mg/dL [facility] [...] 29 U/L [facility] Comment: Test Performed at: [id number] [address] SIRIA MOFFETT MD Blood BLOOD SPECIMEN / Unknown 06/21/2024 7:58 AM FIELD EXAMINER 06/21/2024 8:13 AM FIELD EXAMINER Linda Pennington MD LAB - CHEMISTR Y ORDERABLES [facility] [address] [place] [address] from Last 3 Months Care Teams Managing Manager Relationship Specialty Start Date End Date Tasha Perez PA-C [address] [place] [phone] PCP - General 10/08/19
[2024-06-29 21:33] LABS: Add Urine Microscopic? YES; Appearance Urine Cloudy (Clear); Bacteria Urine None Seen /hpf; Bilirubin Urine Negative (Negative); Blood Urine Negative (Negative); Color Urine Yellow (Yellow); Glucose Urine UA Negative (Negative); Ketones Urine Negative (Negative); Leukocyte Esterase Ur Negative LEU/UL (Negative); Nitrate Urine Negative (Negative); Non Pathogenic Casts 0-2; Protein Urine Negative (Negative); Specific Grav Ur 1.018 (1.001-1.035); Squamous Epithelial Cell Urine None Seen /hpf (Few); Urobilinogen Urine 0.2 mg/dL (<2.0); WBC Urine 0-5 /hpf (0-3)
[2024-06-29] MEDS: MORPHINE SULFATE (*CRX) 4 MG/ML INJ IV PUSH (23:04)
[2024-06-29] MEDS: ONDANSETRON INJ 4 MG/2 ML VIAL IV PUSH (23:04)
[2024-06-29 23:11] LABS: Basophils Absolute Auto 0.1 K/mm3 (0.0-0.1); Basophils Percent Auto 0.8 % (0.2-1.2); Eosinophils Absolute Auto 0.4 K/mm3 (0-0.3); Eosinophils Percent Auto 6.4 % (0-4.4); Hematocrit 38.9 % (37.0-47.0); Immature Granulocyte Absolute 0.02 K/mm3 (0.00-0.031); Immature Granulocyte Percent A 0.3 % (0-0.5); Lymphocytes Absolute Auto 2.05 K/mm3 (0.9-3.2); Lymphocytes Percent Auto 32.9 % (18.3-44.2); Mean Corpuscular HGB Conc 33.4 g/dl (32-36); Mean Corpuscular Hemoglobin 29.9 pg (26-34); Mean Corpuscular Volume 89.4 fl (80-100); Mean Platelet Volume 8.8 fl (7.4-10.4); Monocytes Absolute Auto 0.6 K/mm3 (0.1-0.6); Monocytes Percent Auto 9.8 % (2.6-8.5); Neutrophils Absolute Auto 3.1 K/mm3 (1.3-6.7); Neutrophils Percent Auto 49.8 % (45.5-73.1); Platelet Count Result 301 k/mm3 (150-375); Red Blood Count 4.35 M/mm3 (4.2-5.4); Red Cell Distribution Width 12.1 % (11.5-14.5); White Blood Count 6.2 K/mm3 (4.5-10.0)
[2024-06-30 00:29] LABS: Alanine Aminotransferase 23 U/L (6-35); Albumin Level 4.4 g/dL (3.5-5.1); Alkaline Phosphatase 85 U/L (38-126); Anion Gap 10 mmol/L (4-12); Aspartate Amino Transferase 26 U/L (14-36); Bilirubin,Total 0.6 mg/dL (0.2-1.3); Blood Urea Nitrogen 18 mg/dL (7-17); Calcium 9.3 mg/dL (8.4-10.2); Carbon Dioxide 25 mmol/L (22-30); Chloride 103 mmol/L (98-107); Estimated CRCL calculation 91 ml/min; Estimated Glomerular Filt Rate > 60; Glucose 113 mg/dL (65-110); Lipase 90 U/L (23-300); Potassium 3.9 mmol/L (3.4-5.0); Sodium 138 mmol/L (137-145)
--- NOTE | 2024-06-30 00:39 | ED_ITS ---
HPI - Female Genitourinary General Chief complaint: Urogenital-Female Stated complaint: blood in urine Time Seen by Provider: 06/29/24 21:13 History of Present Illness HPI Narrative: 44-year-old female with no past medical history presents with her boyfriend at bedside for right flank pain for the past 5 days. Patient states the pain is in right flank and radiates to the right lower quadrant and suprapubic region. She is reporting some hematuria. Denies dysuria, hematuria frequency urgency, fever, vomiting. Is endorsing some nausea. No history of kidney stones. Related Data Home Medications ?Medication ?Instructions ?Recorded ?Confirmed ?Last Taken ?Type mycophenolate mofetil 500 mg tablet 500 mg PO BID 07/01/22 12/31/22 Unknown History Allergies Allergy/AdvReac Type Severity Reaction Status Date / Time No Known Allergies Allergy Verified 12/31/22 12:13 Review of Systems 2 Review of Systems: All systems reviewed & are unremarkable except as noted in HPI and below PMFSH Past Medical History Medical History No significant medical problems Surgical History Surgical History Previous section Social History Social History Smoking status: Never smoker Alcohol intake: never Living arrangements: with family Gender identity (if verbalized by the patient): Female Exam 2 Narrative: GENERAL: Well-appearing, well-nourished, and in no acute distress. HEAD: Normocephalic, atraumatic. EYES: EOMI. ENT: Nares clear, no rhinorrhea or epistaxis. Mucous membranes moist. NECK: Supple. CHEST: Clear to auscultation. No respiratory distress. HEART: Regular rate and rhythm. No murmur heard. Normal peripheral pulses. ABDOMEN: Normoactive bowel sounds. Abdomen soft with tenderness in the right lower quadrant and suprapubic region. No rebound or rigidity. Bilateral CVA tenderness EXTREMITIES: Normal range of motion. No edema. SKIN: Warm, dry, no rash. NEURO: No focal deficits. Alert and oriented x3 Course Vital Signs Vital signs: Vital Signs Temperature 98.9 F 06/29/24 19:29 Pulse Rate 71 06/29/24 19:29 Respiratory Rate 20 06/29/24 19:29 Blood Pressure 116/66 06/29/24 19:29 Pulse Oximetry 100 06/29/24 19:29 Oxygen Delivery Room Air 06/29/24 19:29 Temperature 98.9 F 06/29/24 19:29 Pulse Rate 71 06/29/24 19:29 Respiratory Rate 20 06/29/24 19:29 Blood Pressure 116/66 06/29/24 19:29 Pulse Oximetry 100 06/29/24 19:29 Oxygen Delivery Room Air 06/29/24 19:29 MDM - Female Genitourinary MDM Narrative Medical decision making narrative: 44-year-old female presents to the emergency department for right flank pain and hematuria for the past 5 days. See HPI for further history. Triage vitals are stable. Exam significant for the above. Patient is afebrile nontoxic appearing. Lab work shows no leukocytosis or anemia. Chemistries are unremarkable with stable kidney function. UA with 3-5 rbc's, no wbc's, no leuk esterase, no nitrates. is negative. Lipase is normal. CT abdomen pelvis shows no obstructive uropathy, cholelithiasis, colonic diverticulosis without surrounding inflammatory change. Patient and boyfriend at bedside updated on results. Patient will be prescribed Flexeril and ibuprofen for pain and given Urology follow-up for hematuria. It is possible patient may have passed a stone the time CT imaging was performed. Discussed return precautions. She is agreeable with the plan verbalized understanding. Discharged in stable condition. Lab Data 06/29/24 22:56 06/29/24 22:56 Labs: Lab Results 06/29/24 06/29/24 06/29/24 Range/Units 21:22 21:25 22:56 WBC 6.2 (4.5-10.0) K/mm3 RBC 4.35 (4.2-5.4) M/mm3 Hgb 13.0 (12.0-15.0) g/dL Hct 38.9 (37.0-47.0) % MCV 89.4 (80-100) fl MCH 29.9 (26-34) pg MCHC 33.4 (32-36) g/dl RDW 12.1 (11.5-14.5) % Plt Count 301 (150-375) k/mm3 MPV 8.8 (7.4-10.4) fl Immature Gran % (Auto) 0.3 (0-0.5) % Neut % (Auto) 49.8 (45.5-73.1) % Lymph % (Auto) 32.9 (18.3-44.2) % [place] % (Auto) 9.8 H (2.6-8.5) % Eos % (Auto) 6.4 H (0-4.4) % Baso % (Auto) 0.8 (0.2-1.2) % Lymph # (Auto) 2.05 (0.9-3.2) K/mm3 [place] # (Auto) 0.6 (0.1-0.6) K/mm3 Eos # (Auto) 0.4 H (0-0.3) K/mm3 Baso # (Auto) 0.1 (0.0-0.1) K/mm3 Abs Immat Gran (auto) 0.02 (0.00-0.031) K/mm3 Absolute Neuts (auto) 3.1 (1.3-6.7) K/mm3 Absolute Nucleated RBC 0.000 (0.0-0.012) K/mm3 Nucleated RBC % 0.0 (0.0-0.2) % Sodium 138 (137-145) mmol/L Potassium 3.9 (3.4-5.0) mmol/L Chloride 103 (98-107) mmol/L Carbon Dioxide 25 (22-30) mmol/L Anion Gap 10 (4-12) mmol/L BUN 18 H (7-17) mg/dL Creatinine 0.47 L (0.7-1.0) mg/dL Estim Creat Clear Calc 91 ml/min Estimated GFR > 60 (59 - ) Glucose 113 H (65-110) mg/dL Calcium 9.3 (8.4-10.2) mg/dL Total Bilirubin 0.6 (0.2-1.3) mg/dL AST 26 (14-36) U/L ALT 23 (6-35) U/L Alkaline Phosphatase 85 (38-126) U/L Total Protein 7.0 (6.3-8.2) g/dL Albumin 4.4 (3.5-5.1) g/dL Lipase 90 (23-300) U/L Urine Color Yellow (Yellow) Urine Appearance Cloudy H (Clear) Urine pH 7.0 (5.0-9.0) Ur Specific [place] 1.018 (1.001-1.035) Urine Protein Negative (Negative) mg/dL Urine Glucose (UA) Negative (Negative) mg/dL Urine Ketones Negative (Negative) mg/dL Ur Blood (Man) Negative (Negative) Urine Nitrate Negative (Negative) Urine Bilirubin Negative (Negative) Urine Urobilinogen 0.2 (<2.0) mg/dL Leukocyte Esterase Rfl Negative (Negative) TAMMY/UL Urine RBC 3-5 H (0-2) /hpf Urine WBC 0-5 (0-3) /hpf Ur Squamous Epith Cells None seen (Few) /hpf Urine Bacteria None seen /hpf Urine Casts 0-2 POC Urine HCG, Qual Negative (Negative) Discharge Plan Discharge Clinical Impression: Hematuria, Acute flank pain, Cholelithiases, Diverticulosis Patient Disposition: Home, Self-Care Condition: Stable Instructions: Antibiotic Form, Hematuria (ED) Patient Language: Albanian Prescriptions: New cyclobenzaprine 10 mg tablet 10 mg PO TID PRN (Reason: muscle spasm) Qty: 14 0RF ibuprofen 800 mg tablet 800 mg PO TID PRN (Reason: pain) Qty: 20 0RF cyclobenzaprine 10 mg tablet 10 mg PO TID PRN (Reason: muscle spasm) Qty: 14 0RF ibuprofen 800 mg tablet 800 mg PO TID PRN (Reason: pain) Qty: 20 0RF No Action mycophenolate mofetil 500 mg tablet 500 mg PO BID Follow-up/Referrals: Juan Kemp MD [Physician] - Ana,ANABEL Case [Primary Care Provider] -
[2024-06-30 01:15] VITALS: BP 88/58; PULSE 70; RESP 15; O2SAT 99
== END 2024-06-30 01:15 | disposition home or self-care (01) ==
PROVIDERS: Emergency Medicine; Emergency Provider Physician Assistant; PCP Physician Assistant
DX: R31.9 Hematuria, unspecified (principal); R10.9 Unspecified abdominal pain; K80.20 Calculus of gallbladder without cholecystitis without obstruction; K57.30 Diverticulosis of large intestine without perforation or abscess without bleeding
CPT/HCPCS: 36415; 74176; 80053; 81001; 81025; 83690; 85025; 96374; 96375; 99284; J2270; J2405